=== PATIENT | female | born 1975 | race Caucasian/White ===

== ENCOUNTER 2016-11-02 16:03 | Emergency (ER) | payer OTHER ==
[2016-11-02 16:59] VITALS: TEMP 97.3
[2016-11-02] MEDS ORDERED: SODIUM CHLORIDE 0.9% 1,000 ML IV ONE (17:27)
--- NOTE | 2016-11-02 17:40 | ED ---
General Adult HPI - General Chief complaint: Abdominal Pain Stated complaint: Vomiting Blood Time Seen by Provider: 11/02/16 17:21 Source: patient, RN notes reviewed Mode of arrival: ambulatory Limitations: no limitations - History of Present Illness Initial comments: Patient is a 41-year-old female presents to the emergency room for evaluation of vomiting bright red blood. Patient states earlier this afternoon after eating lunch she felt nauseous and had 1 episode of vomiting. Patient states when she looked down and she noticed that there was about 2 ounces of bright red blood. Patient states this never happened to her before. Patient denies feeling nauseated or having any abdominal pain throughout the day today. Patient states after the episode of vomiting she has been feeling weak. Patient denies abdominal pain or current nausea. Patient states that she saw primary care yesterday for throat pain. Patient states she had a rapid strep test which was negative. Patient states she was placed on penicillin anyways. Patient states she took her first dose of penicillin about 20 minutes before she vomited. Patient states she's having a slight headache. Patient denies dizziness, chest pain, shortness of breath, diarrhea, constipation. Patient denies any changes in color of stool or bright red blood in stools. Patient denies trying any new foods. Patient denies any recent travel outside the country. - Related Data Home Medications Medication Instructions Recorded Confirmed Budesonide-Formot 160-4.5 Mcg 2 puff INHALATION RT-BID 11/02/16 11/02/16 [Symbicort 160-4.5 Mcg Inhaler] DULoxetine HCL [Cymbalta] 60 mg PO HS 11/02/16 11/02/16 HYDROcodone/APAP 5-325MG [[place] 1 tab PO BID PRN 11/02/16 11/02/16 5-325] Montelukast [Singulair] 10 mg PO HS 11/02/16 11/02/16 Penicillin V Potassium [Pen Vee K] 500 mg PO BID 11/02/16 11/02/16 Topiramate [Topamax] 100 mg PO QAM 11/02/16 11/02/16 Topiramate [Topamax] 200 mg PO HS 11/02/16 11/02/16 tiZANidine HCL [Zanaflex] 8 mg PO HS 11/02/16 11/02/16 Previous Rx's Medication Instructions Recorded Pantoprazole Sodium [Protonix] 40 mg PO DAILY PRN #14 tablet. 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 ROS Other: All systems not noted in ROS Statement are negative. Past Medical History Additional Past Medical History / Comment(s): headaches History of Any Multi-Drug Resistant Organisms: None Reported Past Surgical History: Hysterectomy Additional Past Surgical History / Comment(s): pilinidal cyst, bilateral feet Past Psychological History: No Psychological Hx Reported Smoking Status: Never smoker Past Alcohol Use History: None Reported Past Drug Use History: None Reported General Exam - General Exam Comments Initial Comments: Sitting in exam room in no distress. Limitations: no limitations General appearance: alert, in no apparent distress Head exam: Present: atraumatic, normocephalic, normal inspection Eye exam: Present: normal appearance ENT exam: Present: normal exam Neck exam: Present: normal inspection Respiratory exam: Present: normal lung sounds bilaterally. Absent: respiratory distress Cardiovascular Exam: Present: regular rate, normal rhythm, normal heart sounds GI/Abdominal exam: Present: soft, normal bowel sounds. Absent: distended, tenderness, guarding, rebound, rigid Extremities exam: Present: normal inspection Back exam: Present: normal inspection Neurological exam: Present: alert, oriented X3, CN II-XII intact, normal gait Psychiatric exam: Present: normal affect, normal mood Skin exam: Present: warm, dry, intact, normal color. Absent: rash Course Vital Signs 11/02/16 11/02/16 11/02/16 16:56 18:17 19:08 Temperature 97.3 F L Pulse Rate 77 76 76 Respiratory 20 18 16 Rate Blood Pressure 141/94 140/61 125/58 O2 Sat by Pulse 100 100 100 Oximetry Medical Decision Making - Medical Decision Making Patient is a 41-year-old female presents emergency room for evaluation of one episode of hematemesis. Patient denies any current nausea or abdominal pain. Labs within normal limits. Hemoglobin/hematocrit stable. Will send patient home on Protonix and have her follow-up with her primary care provider on Friday. Advised patient to return for any worsening symptoms or changing symptoms. Patient states she understands everything that was discussed with her. Case discussed with Dr. Gregory. - Lab Data Result diagrams: 11/02/16 17:46 11/02/16 17:46 Lab Results 11/02/16 11/02/16 11/02/16 Range/Units 17:46 17:46 17:46 WBC 7.5 (3.8-10.6) k/uL RBC 4.74 (3.80-5.40) m/uL Hgb 14.4 (11.4-16.0) gm/dL Hct 43.8 (34.0-46.0) % MCV 92.4 (80.0-100.0) fL MCH 30.3 (25.0-35.0) pg MCHC 32.8 (31.0-37.0) g/dL RDW 13.0 (11.5-15.5) % Plt Count 184 (150-450) k/uL Neutrophils % 75 % Lymphocytes % 15 % Monocytes % 5 % Eosinophils % 3 % Basophils % 0 % Neutrophils # 5.6 (1.3-7.7) k/uL Lymphocytes # 1.1 (1.0-4.8) k/uL Monocytes # 0.4 (0-1.0) k/uL Eosinophils # 0.3 (0-0.7) k/uL Basophils # 0.0 (0-0.2) k/uL Sodium 143 (137-145) mmol/L Potassium 3.7 (3.5-5.1) mmol/L Chloride 109 H (98-107) mmol/L Carbon Dioxide 22 (22-30) mmol/L Anion Gap 12 mmol/L BUN 13 (7-17) mg/dL Creatinine 0.99 (0.52-1.04) mg/dL Est GFR (MDRD) Af Amer >60 (>60 ml/min/1.73 sqM) Est GFR (MDRD) Non-Af >60 (>60 ml/min/1.73 sqM) Glucose 94 (74-99) mg/dL Calcium 8.8 (8.4-10.2) mg/dL Magnesium 1.7 (1.6-2.3) mg/dL Total Bilirubin 0.4 (0.2-1.3) mg/dL AST 18 (14-36) U/L ALT 28 (9-52) U/L Alkaline Phosphatase 104 (38-126) U/L Total Protein 7.3 (6.3-8.2) g/dL Albumin 4.1 (3.5-5.0) g/dL Amylase 47 (30-110) U/L Lipase 50 (23-300) U/L Urine Color Yellow Urine Appearance Cloudy H (Clear) Urine pH 6.5 (5.0-8.0) Ur Specific [place] 1.024 (1.001-1.035) Urine Protein 1+ H (Negative) Urine Glucose (UA) Negative (Negative) Urine Ketones Trace H (Negative) Urine Blood Negative (Negative) Urine Nitrate Negative (Negative) Urine Bilirubin Negative (Negative) Urine Urobilinogen 3.0 (<2.0) mg/dL Ur Leukocyte Esterase Small H (Negative) Urine RBC 6 H (0-5) /hpf Urine WBC 6 H (0-5) /hpf Ur Squamous Epith Cells 5 H (0-4) /hpf Urine Mucus Many H (None) /hpf - Radiology Data Radiology results: report reviewed, image reviewed Disposition Clinical Impression: Hematemesis without nausea Disposition: HOME SELF-CARE Condition: Good Instructions: Hematemesis (ED) Additional Instructions: Take medications as directed. Please follow up with primary care provider on Friday. If any new symptom arises, symptoms worsen or fever develops, return to ER as soon as possible. Prescriptions: Pantoprazole Sodium [Protonix] 40 mg PO DAILY PRN #14 tablet.dr VINES Reason: Pain Referrals: Carmelita Olvera MD [Primary Care Provider] - 1-2 days Time of Disposition: 18:54
[2016-11-02 18:00] LABS: Basophils % (A) 0 %; CHCM 33.7; Eosinophils # (A) 0.3 k/uL (0-0.7); Eosinophils % (A) 3 %; HCT 43.8 % (34.0-46.0); HDW 2.69; HGB 14.4 gm/dL (11.4-16.0); Luc # (Auto) 0.07; Luc % (Auto) 1; Lymphocytes # (A) 1.1 k/uL (1.0-4.8); Lymphocytes % (A) 15 %; MCH 30.3 pg (25.0-35.0); MCHC 32.8 g/dL (31.0-37.0); MCV 92.4 fL (80.0-100.0); Mean Platelet Volume 7.9; Monocytes # (A) 0.4 k/uL (0-1.0); Monocytes % (A) 5 %; Neutrophils # (A) 5.6 k/uL (1.3-7.7); Neutrophils % (A) 75 %; RBC 4.74 m/uL (3.80-5.40); WBC 7.5 k/uL (3.8-10.6)
[2016-11-02 18:05] LABS: Appearance,Urine Cloudy (Clear); Bilirubin,Urine Negative (Negative); Glucose,Urine (UA) Negative (Negative); Ketones,Urine Trace (Negative); Leukocyte Esterase,Urine Small (Negative); Mucus,Urine Many /hpf; Nitrite,Urine Negative (Negative); PH, Urine 6.5 (5.0-8.0); Particle Count 14085; Protein,Urine 1+ (Negative); RBC,Urine 6 /hpf (0-5); Specific Gravity,Urine 1.024 (1.001-1.035); Squamous Epithelial Cell,Urine 5 /hpf (0-4); UA Billing (MACRO vs. MICRO) MICRO; WBC,Urine 6 /hpf (0-5)
[2016-11-02 18:07] LABS: ALT 28 U/L (9-52); AST 18 U/L (14-36); Alkaline Phosphatase 104 U/L (38-126); Amylase 47 U/L (30-110); Anion Gap 12 mmol/L; Blood Urea Nitrogen 13 mg/dL (7-17); Calcium 8.8 mg/dL (8.4-10.2); Carbon Dioxide 22 mmol/L (22-30); Chloride 109 mmol/L (98-107); Glucose 94 mg/dL (74-99); Magnesium 1.7 mg/dL (1.6-2.3); Non-African American GFR(MDRD) >60 (>60 ml/min/1.73 sqM); Potassium 3.7 mmol/L (3.5-5.1); Sodium 143 mmol/L (137-145); Total Bilirubin 0.4 mg/dL (0.2-1.3); Total Protein 7.3 g/dL (6.3-8.2)
[2016-11-02 18:18] VITALS: PULSE 76
--- NOTE | 2016-11-02 18:37 | XR ---
EXAMINATION TYPE: XR KUB DATE OF EXAM: 11/02/2016 6:01 PM COMPARISON: NONE INDICATION: Pain vomiting blood TECHNIQUE: Single view abdomen upright view FINDINGS: There is a normal bowel gas pattern. Psoas margins are normal. No organomegaly is present. No free air is under the diaphragm. Normal colonic bowel gas is present. No suspicious calcifications are evident. IMPRESSION: 1. Unremarkable Abdomen
[2016-11-02 19:09] VITALS: BP 125/58; RESP 16
== END 2016-11-02 19:09 | disposition home or self-care (01) ==
LOC: EC 16:03
DX: K92.0 Hematemesis (principal); R51 Headache; Z79.51 Long term (current) use of inhaled steroids; Z79.899 Other long term (current) drug therapy; Z88.5 Allergy status to narcotic agent; Z91.048 Other nonmedicinal substance allergy status
CPT/HCPCS: 36415; 74000; 80053; 81001; 82150; 83690; 83735; 85025; 96360; 99284

== ENCOUNTER → 2017-12-05 | Outpatient (CLI) | payer OTHER ==
[2017-12-05 17:28] LABS: Basophils % (A) 1 %; Eosinophils # (A) 0.2 k/uL (0-0.7); Eosinophils % (A) 3 %; HCT 44.6 % (34.0-46.0); HGB 13.8 gm/dL (11.4-16.0); Lymphocytes # (A) 1.7 k/uL (1.0-4.8); Lymphocytes % (A) 26 %; MCV 96.9 fL (80.0-100.0); Mean Platelet Volume 7.3; Monocytes # (A) 0.5 k/uL (0-1.0); Monocytes % (A) 7 %; Neutrophils # (A) 3.9 k/uL (1.3-7.7); Neutrophils % (A) 62 %; Platelet Count 203 k/uL (150-450); RBC 4.61 m/uL (3.80-5.40); RDW 13.4 % (11.5-15.5); WBC 6.3 k/uL (3.8-10.6)
[2017-12-05 19:52] LABS: Erythrocyte Sedimentation Rate 13 mm/hr (0-20)
== END | disposition home or self-care (01) ==
LOC: LABWHC1 16:14
PROVIDERS: ATTEND Ophthalmology
DX: H57.11 Ocular pain, right eye (principal)
CPT/HCPCS: 36415; 85025; 85652; 86140

== ENCOUNTER → 2017-12-09 | Outpatient (CLI) | payer OTHER ==
--- NOTE | 2017-12-09 13:14 | MR ---
EXAMINATION TYPE: MR knee RT wo con DATE OF EXAM: 12/09/2017 COMPARISON: NONE HISTORY: Right knee pain TECHNIQUE: Multiplanar, multisequence imaging of the right knee is performed without IV contrast. FINDINGS: MEDIAL MENISCUS: Intrasubstance signal seen within the posterior horn medial meniscus which appears t o extend to the articular surface on the coronal image compatible with a peripheral linear tear. LATERAL MENISCUS: Anterior and posterior horns are intact without tear. CRUCIATE LIGAMENTS: The anterior and posterior cruciate ligaments are intact and unremarkable. COLLATERAL LIGAMENTS: The medial collateral ligament and lateral collateral ligament complex are inta ct and unremarkable. EXTENSOR MECHANISM: Visualized quadriceps and patellar tendons are intact. EFFUSION: Small amount of fluid is seen within the suprapatellar bursa. POPLITEAL CYST: No popliteal/alegria cyst. TRICOMPARTMENT SPACES: Joint spaces are preserved. No erosive changes. There is hypertrophic change i nvolving the upper margin of patella. Fibrillation and chondromalacia of the patellar cartilage near the apex noted. BONE MARROW SIGNAL: Post arthritic or degenerative marrow changes involving the patella. IMPRESSION: 1. Small amount of fluid in the suprapatellar bursa with mild hypertrophic changes of the patella. Fi brillation and chondromalacia of the patellar cartilage. 2. Simple linear peripheral tear posterior horn medial meniscus.
== END | disposition home or self-care (01) ==
LOC: RADMRIMAIN 12:14
PROVIDERS: ATTEND Orthopaedic Surgery
DX: S83.241A Other tear of medial meniscus, current injury, right knee, initial encounter (principal); M22.41 Chondromalacia patellae, right knee

== ENCOUNTER → 2018-01-06 | Outpatient (CLI) | payer OTHER ==
[2018-01-06 13:07] LABS: Basophils # (A) 0.1 k/uL (0-0.2); Basophils % (A) 1 %; Eosinophils # (A) 0.3 k/uL (0-0.7); Eosinophils % (A) 4 %; HCT 42.2 % (34.0-46.0); HGB 14.2 gm/dL (11.4-16.0); Lymphocytes # (A) 1.4 k/uL (1.0-4.8); Lymphocytes % (A) 18 %; MCH 31.1 pg (25.0-35.0); MCHC 33.7 g/dL (31.0-37.0); MCV 92.3 fL (80.0-100.0); Mean Platelet Volume 7.6; Monocytes # (A) 0.4 k/uL (0-1.0); Monocytes % (A) 5 %; Neutrophils # (A) 5.5 k/uL (1.3-7.7); Neutrophils % (A) 70 %; Platelet Count 197 k/uL (150-450); RBC 4.57 m/uL (3.80-5.40); RDW 13.7 % (11.5-15.5); WBC 7.9 k/uL (3.8-10.6)
[2018-01-06 13:29] LABS: Potassium 4.4 mmol/L (3.5-5.1)
== END | disposition home or self-care (01) ==
LOC: LABPAT 12:37
PROVIDERS: ATTEND Orthopaedic Surgery
DX: Z01.812 Encounter for preprocedural laboratory examination (principal); M23.91 Unspecified internal derangement of right knee
CPT/HCPCS: 36415; 80051; 85025

== ENCOUNTER → 2018-01-12 | Outpatient (CLI) | payer OTHER ==
--- NOTE | 2018-01-12 22:07 | MR ---
EXAMINATION TYPE: MR brain wo/w [facility], [place] wo DATE OF EXAM: 01/12/2018 COMPARISON: 09/25/2016 HISTORY: Headaches, Neck pain with stiffness, Short term memory loss CONTRAST: Performed utilizing 11.5 mL intravenous Gadavist gadolinium contrast. TECHNIQUE: Multiplanar, multiecho imaging on a 3.0 Desirae magnet is performed through the brain. Stud y is performed within 24 hours of arrival to the hospital. The craniovertebral junction is normal. The pituitary is normal. Diffusion-weighted imaging is performed. No abnormal hyperintensity is present to suggest an acute i ntracranial infarct or acute ischemic change. Signal within the brain is normal. Previous hyperintensity adjacent to the left frontal horn of the l ateral ventricles is not appreciated on the current examination. Optic chiasm is unremarkable. Ventricles and sulci are appropriate for the patient age. No abnormal enhancement is evident. IMPRESSIONS: 1. Normal pre and postcontrast MRI brain. EXAMINATION TYPE: [facility] brain [facility] DATE OF EXAM: 01/12/2018 COMPARISON: NONE HISTORY: Headaches, Neck pain with stiffness, Short term memory loss CONTRAST: Performed utilizing 11.5 mL intravenous Gadavist gadolinium contrast. TECHNIQUE: Multiplanar multiecho imaging on a 3.0 Desirae magnet is performed through the cervical spin e. FINDINGS: The craniovertebral junction is normal. Vertebral body alignment is normal. C7-T1: No focal disc herniation or significant disc bulge is evident. No spinal canal stenosis or n eural foraminal stenosis is present. C6-7: No focal disc herniation or significant disc bulge is evident. No spinal canal stenosis or tarun ral foraminal stenosis is present. C5-6: Minimal left paracentral disc bulge may be present with anterior thecal sac contact. This comes in close approximation with the spinal cord. No spinal cord compression is evident. No AP spinal can al stenosis present. Neural foramen are patent. C4-5: No focal disc herniation or significant disc bulge is evident. No spinal canal stenosis or tarun ral foraminal stenosis is present. C3-4: No focal disc herniation or significant disc bulge is evident. No spinal canal stenosis or tarun ral foraminal stenosis is present. C2-3: No focal disc herniation or significant disc bulge is evident. No spinal canal stenosis or tarun ral foraminal stenosis is present. There is some mild disc desiccation C2-3 through C5-6. IMPRESSIONS: 1. Minimal disc bulge C5-6 with left paracentral thecal sac contact. 2. Disc desiccation upper to mid cervical spine
== END | disposition home or self-care (01) ==
LOC: RADMRIMAIN 20:57
PROVIDERS: ATTEND Family Medicine
DX: M50.222 Other cervical disc displacement at C5-C6 level (principal); M47.812 Spondylosis without myelopathy or radiculopathy, cervical region; G43.109 Migraine with aura, not intractable, without status migrainosus
CPT/HCPCS: 70553; 72141; A9581

== ENCOUNTER 2018-06-20 14:20 | Observation (INO) | payer OTHER ==
[2018-06-20] MEDS ORDERED: ASPIRIN 81 MG PO STA (14:37)
[2018-06-20] MEDS ORDERED: NITROGLYCERIN OINT 1 INCH/GM PACKET TOPICAL STA (14:37)
--- NOTE | 2018-06-20 14:45 | ED ---
General Adult HPI - General Chief complaint: Chest Pain Stated complaint: Chest pain Time Seen by Provider: 06/20/18 14:20 Source: patient, RN notes reviewed Mode of arrival: wheelchair Limitations: no limitations - History of Present Illness Initial comments: This is a 42-year-old female with no significant past medical history or family history for heart disease. Patient comes in stating over the last week she's been having intermittent chest pain. Patient states there are episodes when the pain is much worse and it takes her breath away and it lasts typically for about 10 seconds but there is an underlying discomfort that stays much longer. Patient states currently she is having some discomfort even though the more painful episode has resolved. Patient denies any fever chills or cough. Patient denies any leg swelling or calf tenderness. Patient states the pain does radiate to her right shoulder and she is only short of breath when the pain is more significant. Patient denies any diaphoresis. Patient denies any nausea or vomiting patient denies any abdominal pain patient denies any lightheadedness dizziness or nursing episode. - Related Data Home Medications Medication Instructions Recorded Confirmed DULoxetine HCL [Cymbalta] 60 mg PO DAILY 11/02/16 06/20/18 Topiramate [Topamax] 100 mg PO TID 11/02/16 06/20/18 tiZANidine HCL [Zanaflex] 4 mg PO BID 11/02/16 06/20/18 Albuterol Inhaler [Ventolin [place] 1 - 2 puff INHALATION RT-QID PRN 01/15/18 Inhaler] DULoxetine HCL [Cymbalta] 30 mg PO DAILY 01/15/18 06/20/18 Pantoprazole Sodium [Protonix] 40 mg PO DAILY 01/15/18 06/20/18 ARIPiprazole [Abilify] 2 mg PO DAILY 06/20/18 06/20/18 HYDROcodone/APAP 5-325MG [[place] 1 tab PO Q6H PRN 06/20/18 06/20/18 5-325] busPIRone HCl [Buspar] 10 mg PO BID 06/20/18 06/20/18 Allergies Allergy/AdvReac Type Severity Reaction Status Date / Time codeine Allergy passes out Verified 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 ROS Other: All systems not noted in ROS Statement are negative. Past Medical History Additional Past Medical History / Comment(s): headaches History of Any Multi-Drug Resistant Organisms: None Reported Past Surgical History: Hysterectomy Additional Past Surgical History / Comment(s): pilinidal cyst, bilateral feet Past Psychological History: Anxiety, Depression Smoking Status: Never smoker Past Alcohol Use History: None Reported Past Drug Use History: None Reported General Exam - General Exam Comments Initial Comments: GENERAL: Patient is well-developed and well-nourished. Patient is nontoxic and well- hydrated and is in mild distress. ENT: Neck is soft and supple. No significant lymphadenopathy is noted. Oropharynx is clear. Moist mucous membranes. Neck has full range of motion without eliciting any pain. EYES: The sclera were anicteric and conjunctiva were pink and moist. Extraocular movements were intact and pupils were equal round and reactive to light. Eyelids were unremarkable. PULMONARY: Unlabored respirations. Good breath sounds bilaterally. No audible rales rhonchi or wheezing was noted. CARDIOVASCULAR: There is a regular rate and rhythm without any murmurs gallops or rubs. ABDOMEN: Soft and nontender with normal bowel sounds. SKIN: Skin is clear with no lesions or rashes and otherwise unremarkable. NEUROLOGIC: Patient is alert and oriented x3. Cranial nerves II through XII are grossly intact. Motor and sensory are also intact. Normal speech, volume and content. Symmetrical smile. MUSCULOSKELETAL: Normal extremities with adequate strength and full range of motion. LYMPHATICS: No significant lymphadenopathy is noted PSYCHIATRIC: Normal psychiatric evaluation. Normal interpersonal interactions appears functionally intact in deals appropriately with others. No signs of depression. No signs of anxiety. Limitations: no limitations Course Vital Signs 06/20/18 06/20/18 14:22 15:45 Temperature 98.3 F Pulse Rate 89 66 Respiratory 18 18 Rate Blood Pressure 124/88 113/79 O2 Sat by Pulse 98 98 Oximetry Medical Decision Making - Medical Decision Making EKG shows normal sinus rhythm at 70 bpm OH interval is 138 QRS is 92 QT interval 370 QTC is 421. Patient's EKG shows no ST segment elevation or depression. Chest x-ray shows no acute abnormality. Patient will be because her pain is been intermittent with episodes that are exacerbated and associated with significant shortness of breath. - Lab Data Result diagrams: 06/20/18 14:37 06/20/18 14:37 Lab Results 06/20/18 06/20/18 06/20/18 Range/Units 14:37 14:37 14:37 WBC 7.5 (3.8-10.6) k/uL RBC 4.51 (3.80-5.40) m/uL Hgb 13.4 (11.4-16.0) gm/dL Hct 42.4 (34.0-46.0) % MCV 94.0 (80.0-100.0) fL MCH 29.7 (25.0-35.0) pg MCHC 31.6 (31.0-37.0) g/dL RDW 13.4 (11.5-15.5) % Plt Count 206 (150-450) k/uL Neutrophils % 69 % Lymphocytes % 18 % Monocytes % 5 % Eosinophils % 6 % Basophils % 0 % Neutrophils # 5.2 (1.3-7.7) k/uL Lymphocytes # 1.4 (1.0-4.8) k/uL Monocytes # 0.4 (0-1.0) k/uL Eosinophils # 0.4 (0-0.7) k/uL Basophils # 0.0 (0-0.2) k/uL PT (9.0-12.0) sec INR (<1.2) APTT (22.0-30.0) sec Sodium 141 (137-145) mmol/L Potassium 3.9 (3.5-5.1) mmol/L Chloride 114 H (98-107) mmol/L Carbon Dioxide 20 L (22-30) mmol/L Anion Gap 7 mmol/L BUN 15 (7-17) mg/dL Creatinine 0.90 (0.52-1.04) mg/dL Est GFR (CKD-EPI)AfAm >90 (>60 ml/min/1.73 sqM) Est GFR (CKD-EPI)NonAf 78 (>60 ml/min/1.73 sqM) Glucose 99 (74-99) mg/dL Calcium 9.3 (8.4-10.2) mg/dL Magnesium 1.8 (1.6-2.3) mg/dL Total Bilirubin 0.4 (0.2-1.3) mg/dL AST 22 (14-36) U/L ALT 31 (9-52) U/L Alkaline Phosphatase 88 (38-126) U/L Total Creatine Kinase 57 (30-135) U/L CK-MB (CK-2) 0.5 (0.0-2.4) ng/mL CK-MB (CK-2) Rel Index 0.9 Troponin I <0.012 (0.000-0.034) ng/mL Total Protein 6.6 (6.3-8.2) g/dL Albumin 3.7 (3.5-5.0) g/dL 06/20/18 Range/Units 14:37 WBC (3.8-10.6) k/uL RBC (3.80-5.40) m/uL Hgb (11.4-16.0) gm/dL Hct (34.0-46.0) % MCV (80.0-100.0) fL MCH (25.0-35.0) pg MCHC (31.0-37.0) g/dL RDW (11.5-15.5) % Plt Count (150-450) k/uL Neutrophils % % Lymphocytes % % Monocytes % % Eosinophils % % Basophils % % Neutrophils # (1.3-7.7) k/uL Lymphocytes # (1.0-4.8) k/uL Monocytes # (0-1.0) k/uL Eosinophils # (0-0.7) k/uL Basophils # (0-0.2) k/uL PT 9.6 (9.0-12.0) sec INR 1.0 (<1.2) APTT 28.7 (22.0-30.0) sec Sodium (137-145) mmol/L Potassium (3.5-5.1) mmol/L Chloride (98-107) mmol/L Carbon Dioxide (22-30) mmol/L Anion Gap mmol/L BUN (7-17) mg/dL Creatinine (0.52-1.04) mg/dL Est GFR (CKD-EPI)AfAm (>60 ml/min/1.73 sqM) Est GFR (CKD-EPI)NonAf (>60 ml/min/1.73 sqM) Glucose (74-99) mg/dL Calcium (8.4-10.2) mg/dL Magnesium (1.6-2.3) mg/dL Total Bilirubin (0.2-1.3) mg/dL AST (14-36) U/L ALT (9-52) U/L Alkaline Phosphatase (38-126) U/L Total Creatine Kinase (30-135) U/L CK-MB (CK-2) (0.0-2.4) ng/mL CK-MB (CK-2) Rel Index Troponin I (0.000-0.034) ng/mL Total Protein (6.3-8.2) g/dL Albumin (3.5-5.0) g/dL Disposition Clinical Impression: Chest pain Disposition: ADMITTED IP TO THIS HOSP Referrals: Carmelita Olvera MD [Primary Care Provider] - 1-2 days Time of Disposition: 15:59
--- NOTE | 2018-06-20 15:15 | XR ---
EXAMINATION TYPE: XR chest 2V DATE OF EXAM: 06/20/2018 COMPARISON: None INDICATION: Asthma, chest pain TECHNIQUE: Frontal and lateral views of the chest are obtained. FINDINGS: The heart size is normal. The pulmonary vasculature is normal. The lungs are clear. IMPRESSION: 1. No acute pulmonary process.
[2018-06-20 15:25] LABS: ALT 31 U/L (9-52); AST 22 U/L (14-36); Albumin 3.7 g/dL (3.5-5.0); Alkaline Phosphatase 88 U/L (38-126); Anion Gap 7 mmol/L; Blood Urea Nitrogen 15 mg/dL (7-17); Calcium 9.3 mg/dL (8.4-10.2); Carbon Dioxide 20 mmol/L (22-30); Chloride 114 mmol/L (98-107); Glucose 99 mg/dL (74-99); Magnesium 1.8 mg/dL (1.6-2.3); Potassium 3.9 mmol/L (3.5-5.1); Sodium 141 mmol/L (137-145); Total Bilirubin 0.4 mg/dL (0.2-1.3); Total Protein 6.6 g/dL (6.3-8.2)
[2018-06-20 15:27] LABS: Creatine Kinase 57 U/L (30-135)
[2018-06-20 15:29] LABS: Partial Thromboplastin Time 28.7 sec (22.0-30.0); Prothrombin Time 9.6 sec (9.0-12.0)
[2018-06-20 15:40] LABS: Basophils % (A) 0 %; Creatine Kinase MB 0.5 ng/mL (0.0-2.4); Eosinophils # (A) 0.4 k/uL (0-0.7); Eosinophils % (A) 6 %; HCT 42.4 % (34.0-46.0); HGB 13.4 gm/dL (11.4-16.0); Lymphocytes # (A) 1.4 k/uL (1.0-4.8); Lymphocytes % (A) 18 %; MCH 29.7 pg (25.0-35.0); MCHC 31.6 g/dL (31.0-37.0); Mean Platelet Volume 7.9; Monocytes # (A) 0.4 k/uL (0-1.0); Monocytes % (A) 5 %; Neutrophils # (A) 5.2 k/uL (1.3-7.7); Neutrophils % (A) 69 %; Platelet Count 206 k/uL (150-450); RBC 4.51 m/uL (3.80-5.40); RDW 13.4 % (11.5-15.5); Troponin I <0.012 ng/mL (0.000-0.034); WBC 7.5 k/uL (3.8-10.6)
[2018-06-20] MEDS ORDERED: NITROGLYCERIN SL TABS 0.4 MG TAB SUBLINGUAL PRN (15:59)
[2018-06-20] MEDS ORDERED: HYDROcodone/APAP 5-325MG 1 EACH TAB PO PRN (16:13)
[2018-06-20] MEDS ORDERED: ALBUTEROL NEBULIZED 2.5 MG/3 ML INHALATION PRN (16:13)
[2018-06-20] MEDS ORDERED: ACETAMINOPHEN TAB 500 MG TAB PO PRN (16:14)
[2018-06-20] MEDS ORDERED: ALPRAZolam 0.25 MG TAB PO PRN (16:14)
[2018-06-20 19:31] LABS: Appearance,Urine Clear (Clear); Bilirubin,Urine Negative (Negative); Blood,Urine Negative (Negative); Color,Urine Yellow; Glucose,Urine (UA) Negative (Negative); Ketones,Urine Negative (Negative); Leukocyte Esterase,Urine Negative (Negative); Nitrite,Urine Negative (Negative); Protein,Urine Negative (Negative); Specific Gravity,Urine 1.019 (1.001-1.035); Urobilinogen,Urine <2.0 mg/dL (<2.0)
--- NOTE | 2018-06-20 20:49 | CT ---
CT CHEST FOR PULMONARY EMBOLISM. EXAMINATION TYPE: CT angio chest DATE OF EXAM: 06/20/2018 INDICATION: SOB, elevated d-dimer CT DLP: 539.8 mGycm, Automated exposure control for dose reduction was used. CONTRAST: Patient injected with 100 mL of Isovue 370. COMPARISON: None TECHNIQUE: CT of the chest is performed on a spiral scan at 2 mm thick sections. Study is performed with intravenous contrast timed for evaluation for pulmonary embolism. This will limit additional po rtions of the evaluation. 3-D MIP images reconstructed by the technologist are reviewed on the compu ter in the coronal and sagittal planes. FINDINGS: No persistent filling defects are evident to suggest an acute pulmonary embolism. No mediastinal or hilar adenopathy enlarged by CT criteria is evident. The ascending aorta diameter at the level of the main pulmonary artery is 3.3 cm. The main pulmonary artery diameter at the bifur cation is 2.4 cm. Lung windows are clear. Limited CT section through the upper abdomen are unremarkable. IMPRESSIONS: 1. No acute pulmonary embolism.
[2018-06-20] MEDS ORDERED: TEMAZEPAM 15 MG CAP PO PRN (21:00)
[2018-06-20] MEDS ORDERED: tiZANidine 4 MG TAB PO SCH (21:00)
[2018-06-20 21:16] LABS: Creatine Kinase 42 U/L (30-135)
[2018-06-20 21:29] LABS: Creatine Kinase MB 0.4 ng/mL (0.0-2.4); Troponin I <0.012 ng/mL (0.000-0.034)
[2018-06-20] MEDS: NITROGLYCERIN OINT 1 INCH/GM PACKET TOPICAL SCH (21:43)
[2018-06-20] MEDS: busPIRone HCl 10 MG TAB PO SCH (21:48)
[2018-06-20] MEDS ORDERED: DULoxetine HCL 30 MG CAPSULE.DR PO SCH (22:00)
[2018-06-20] MEDS ORDERED: DULoxetine HCL 60 MG CAPSULE.DR PO SCH (22:00)
[2018-06-20] MEDS ORDERED: TOPIRAMATE 100 MG TAB PO SCH ×2 (22:00)
--- NOTE | 2018-06-20 22:35 | HP ---
HISTORY AND PHYSICAL DATE OF SERVICE: 06/20/2018. CHIEF COMPLAINT: Chest pain. HISTORY OF PRESENT ILLNESS: This 42-year-old gentleman with a past medical history of headaches, hysterectomy, anxiety, depression being followed by Dr. Olvera in the outpatient setting has been admitted with complaints of chest pain which is felt in the upper part of the chest and mostly to the right side, intermittent in character, sharp in character for the last several days which increase in intensity today. There is no history of radiation. No history of associated symptoms. Initial troponins are negative. Initial EKG showed no acute abnormality. Patient admitted for evaluation and treatment. There is no history of fever, rigors. No headache, loss of consciousness, seizures. PAST MEDICAL HISTORY: History of headaches, history of hysterectomy, history of DJD, history of pilonidal cyst. MEDICATIONS: 1. Zanaflex 4 mg p.o. b.i.d. 2. BuSpar 10 mg p.o. b.i.d. 3. Topamax 100 mg p.o. t.i.d. 4. Protonix 40 mg p.o. daily. 5. [place] 5 mg q.6h p.r.n. 6. Cymbalta 30 mg p.o. daily, 60 mg p.o. daily. 7. Ventolin HFA 1-2 puffs q.i.d. p.r.n. 8. Abilify 2 mg p.o. daily. 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 FAMILY HISTORY: No history of heart disease or strokes in the family. SOCIAL HISTORY: No history of smoking. No history of alcohol intake. REVIEW OF SYSTEMS: ENT: No diminished hearing or vision. CARDIOVASCULAR: As mentioned. RESPIRATORY: As mentioned earlier. GI: No nausea. : No dysuria. NERVOUS SYSTEM: No numbness or weakness. ALLERGY/IMMUNOLOGY: No asthma or hayfever. MUSCULOSKELETAL: As mentioned earlier. HEMATOLOGY: No history of anemia. ENDOCRINE: No history of diabetes or hypothyroidism. CONSTITUTIONAL: As mentioned earlier. DERMATOLOGY: Negative. RHEUMATOLOGY: Negative. CONSTITUTIONAL: As mentioned earlier. PHYSICAL EXAMINATION: Pulse 59, blood pressure 120/78, respirations 18, temperature 98.4, pulse ox 100 percent on room air. HEENT: Conjunctivae normal. Oral mucosa moist. Neck is no jugular venous distention. No carotid bruit. No lymph node enlargement. CARDIOVASCULAR: S1, S2. RESPIRATORY: Breath sounds diminished in the bases. No rhonchi. No crackles. ABDOMEN: Soft, nontender. No mass palpable. LEGS: No edema, no swelling. NERVOUS SYSTEM: Higher functions as mentioned. Moves all four limbs. No focal motor deficits. LYMPHATICS: No lymphadenopathy in the neck, axillae, groin. SKIN: No ulcer, rash, bleeding. LABS: CBC within normal limits. CO2 is 20. Other labs are normal. ASSESSMENT: 1. Chest pain possible evaluation, rule out myocardial infarction possibly musculoskeletal pain. 2. Headaches. 3. Hysterectomy. 4. History of degenerative joint disease. 5. History of pilonidal cyst. 6. Anxiety, depression. RECOMMENDATIONS AND DISCUSSION: In this 42-year-old woman who presented with multiple complex medical issues, will monitor the patient closely. Continue the current medications. Rule out myocardial infarction. Continue antiplatelet agents and closely follow with Cardiology. Possible stress test. Continue the rest of medications. Check a lipid panel also. Will also check D-dimer also. Prognosis guarded because of multiple complex medical issues and further recommendations to follow. See orders for details. A copy of dictation forwarded to Dr. Olvera who is the primary physician. MMODL / IJN: [id number] /
[2018-06-21 02:51] LABS: Basophils % (A) 1 %; Eosinophils # (A) 0.4 k/uL (0-0.7); Eosinophils % (A) 7 %; HCT 36.9 % (34.0-46.0); Lymphocytes # (A) 1.7 k/uL (1.0-4.8); Lymphocytes % (A) 29 %; MCH 30.4 pg (25.0-35.0); MCHC 32.5 g/dL (31.0-37.0); MCV 93.8 fL (80.0-100.0); Mean Platelet Volume 7.3; Monocytes # (A) 0.3 k/uL (0-1.0); Monocytes % (A) 5 %; Neutrophils # (A) 3.4 k/uL (1.3-7.7); Neutrophils % (A) 56 %; Platelet Count 177 k/uL (150-450); RBC 3.94 m/uL (3.80-5.40); RDW 13.5 % (11.5-15.5)
[2018-06-21 02:58] LABS: Creatine Kinase 38 U/L (30-135)
[2018-06-21 03:00] LABS: Calcium 8.7 mg/dL (8.4-10.2)
[2018-06-21 03:11] LABS: Creatine Kinase MB 0.3 ng/mL (0.0-2.4); Troponin I <0.012 ng/mL (0.000-0.034)
[2018-06-21] MEDS ORDERED: DULoxetine HCL 30 MG CAPSULE.DR PO SCH (09:00)
[2018-06-21] MEDS ORDERED: ARIPiprazole 2 MG TAB PO SCH (09:00)
[2018-06-21] MEDS ORDERED: TOPIRAMATE 100 MG TAB PO SCH (09:00)
[2018-06-21] MEDS ORDERED: DULoxetine HCL 60 MG CAPSULE.DR PO SCH (09:00)
[2018-06-21] MEDS ORDERED: ASPIRIN 81 MG PO SCH (09:00)
[2018-06-21] MEDS ORDERED: PANTOPRAZOLE 40 MG TABLET PO SCH (09:00)
[2018-06-21] MEDS ORDERED: ASPIRIN 325 MG TAB PO SCH (09:00)
--- NOTE | 2018-06-21 09:43 | CONS ---
CONSULTATION This is a 42-year-old obese lady with underlying history of depression, who also has some bronchial asthma type picture. She is under the care of Dr. Olvera. She came into the hospital with complaints of what she described as a sharp pain on the right side of her chest. The pain which was in the upper right side of the chest then switched over to the left side, sharp in nature in a stabbing fashion, took her breath away, came on and off and seemed to persist and made her quite concerned and she came into the hospital. Her pain is now resolved. She is comfortable, resting. Has no chest pain at all. After arrival her D-dimer was elevated. Troponins were normal. D- dimer was about 1.7. She went on to have a CT angiography which did not reveal any evidence of pulmonary embolism. She is resting comfortably at the time of my examination without any symptoms. PAST MEDICAL HISTORY: 1. Obesity. 2. Underlying depression. 3. No evidence of any prior myocardial infarction or CVA. SOCIAL HISTORY: Patient is not a smoker. Does not consume alcohol on a regular basis. MEDICATIONS: At home include Cymbalta, Protonix, Abilify, [place], BuSpar. ALLERGIES: SHE IS ALLERGIC TO CODEINE. EKG revealed a sinus mechanism without any acute changes. PHYSICAL EXAMINATION: Revealed a blood pressure of about 108/60, pulse rate is 68 per minute regular. HEENT: Unremarkable. Fundus was not examined by me. Neck is supple. There is no JVD. I do not hear a carotid bruit. Heart exam reveals S1, S2 heard normally without a rub, murmur or gallop. Lungs are clear. Abdomen is soft, nontender. Lower extremities reveal palpable pulses. No edema. There is no clinical evidence of DVT in the lower extremities. Central nervous system is normal. EKG revealed sinus mechanism, no acute changes. IMPRESSION: 1. Atypical chest pain. 2. Abnormal D-dimer. 3. Obesity. 4. Depression. RECOMMENDATIONS: Given the abnormal D-dimer I am recommending a venous Doppler to rule out DVT. CT angio was negative for any clot. If this is normal, we can probably discharge the patient and do a stress test as an outpatient. I discussed my thoughts in detail with the patient. Advised to come back and have a stress test either performed here in this hospital or through her primary care physician Dr. Olvera. I have advised increase activity at this time and we will do a venous Doppler this morning if possible. Thank you very much for the consult. MMMYRAL / IJN: [id number] /
--- NOTE | 2018-06-21 10:34 | US ---
EXAMINATION TYPE: US venous doppler duplex LE BI DATE OF EXAM: 06/21/2018 10:24 AM COMPARISON: NONE CLINICAL HISTORY: SOB. SOB, chest pain, elevated D-dimer SIDE PERFORMED: Bilateral TECHNIQUE: The lower extremity deep venous system is examined utilizing real time linear array sonog winsome with graded compression, doppler sonography and color-flow sonography. VESSELS IMAGED: External Iliac Vein (EIV) Common Femoral Vein Deep Femoral Vein Greater Saphenous Vein * Femoral Vein Popliteal Vein Small Saphenous Vein * Proximal Calf Veins (* superficial vessels) Technical limitations due to patient's body habitus and patient unable to tolerate compressions Right Leg: No evidence of DVT as visualized, unable to visualize lower femoral vein for compression Left Leg: No evidence of DVT as visualized No popliteal fossa lesion is seen. IMPRESSION: THIS EXAMINATION IS NEGATIVE FOR DVT IN BOTH LEGS.
[2018-06-21] MEDS: NITROGLYCERIN OINT 1 INCH/GM PACKET TOPICAL SCH (12:11)
[2018-06-21] MEDS: busPIRone HCl 10 MG TAB PO SCH (12:13)
[2018-06-21 12:23] VITALS: BP 121/78; PULSE 77; RESP 18; TEMP 98.6
--- NOTE | 2018-06-21 17:55 | DS ---
DISCHARGE SUMMARY DATE OF SERVICE: 06/21/2018. FINAL DIAGNOSES: 1. Chest pain, possible musculoskeletal pain, myocardial infarction ruled out. 2. Headaches. 3. Hysterectomy. 4. History of degenerative joint disease. 5. History of pilonidal cyst. 6. Anxiety, depression. DISCHARGE CONDITION: The patient is being discharged in stable condition with guarded prognosis. Cardiology recommended the patient to be discharged. HISTORY OF PRESENT ILLNESS: This 42-year-old woman with a past medical history of chest pain, myocardial infarction ruled out. Cardiology saw the patient and recommended outpatient followup. On exam, vital signs stable. Cardiovascular, S1 and S2 muffled. Lungs clear. Abdomen soft. Nervous system, no focal deficits. The patient's CTA and venous Doppler were negative for pulmonary embolism or any DVT. DISCHARGE INSTRUCTIONS: 1. Diet is cardiac. 2. Activity as tolerated. FOLLOWUP: 1. Follow up with Dr. Carmelita Olvera in 1 to [address] Tarah Escobedo in 1 week. 3. Outpatient stress test, possibly. Patient also mildly , LDL was 120. Recommend Lipitor and continued followup. MEDICATION: 1. Ventolin HFA 1 to 2 puffs every 6 hours p.r.n. 2. Abilify 2 mg p.o. daily. 3. BuSpar 10 mg p.o. b.i.d. 4. Cymbalta 60 mg as before and 90 mg at bedtime. 5. [place] 5 mg every 6 hours p.r.n. 6. Protonix 40 mg p.o. daily. 7. Zanaflex 8 mg at bedtime. 8. Topamax 100 mg p.o. t.i.d. 9. Lipitor 10 mg p.o. at bedtime. Once again, the patient is discharged in stable condition with guarded prognosis. MMODL / IJN: [id number] / MTDD
== END 2018-06-21 14:30 | disposition home or self-care (01) ==
LOC: EC 14:20 → 3OBS 16:08
PROVIDERS: ADMIT Hospitalist; ATTEND Hospitalist
DX: R07.89 Other chest pain (principal); R79.89 Other specified abnormal findings of blood chemistry; R51 Headache; J45.909 Unspecified asthma, uncomplicated; M19.90 Unspecified osteoarthritis, unspecified site; F41.9 Anxiety disorder, unspecified; F32.9 Major depressive disorder, single episode, unspecified; E66.9 Obesity, unspecified; Z68.42 Body mass index [BMI] 45.0-49.9, adult; Z79.899 Other long term (current) drug therapy; Z88.5 Allergy status to narcotic agent; Z91.048 Other nonmedicinal substance allergy status; Z87.2 Personal history of diseases of the skin and subcutaneous tissue; Z90.710 Acquired absence of both cervix and uterus
CPT/HCPCS: 99285 ×2; 36415; 93005; 85379; 80061; 80053; 80048; 82550 ×2; 82553 ×2; 83735; 84484 ×2; 85025 ×2; 85610; 85730; 81003; 71046; 93970; 71275; G0378 ×2; Q9967

== ENCOUNTER 2019-01-19 20:32 | Observation (INO) | payer OTHER ==
[2019-01-19 22:02] LABS: Basophils % (A) 0 %; Eosinophils % (A) 1 %; HCT 40.4 % (34.0-46.0); HGB 13.3 gm/dL (11.4-16.0); Lymphocytes # (A) 2.1 k/uL (1.0-4.8); Lymphocytes % (A) 60 %; MCH 29.5 pg (25.0-35.0); MCHC 33.1 g/dL (31.0-37.0); MCV 89.1 fL (80.0-100.0); Mean Platelet Volume 7.3; Monocytes # (A) 0.2 k/uL (0-1.0); Monocytes % (A) 6 %; Neutrophils % (A) 30 %; Platelet Count 140 k/uL (150-450); RBC 4.53 m/uL (3.80-5.40); RDW 13.3 % (11.5-15.5); WBC 3.5 k/uL (3.8-10.6)
--- NOTE | 2019-01-19 22:19 | ED ---
Dizziness HPI - General Chief Complaint: Dizziness Stated Complaint: INR low, blood clot in lungs Time Seen by Provider: 01/19/19 21:17 Source: patient, family Mode of arrival: ambulatory Limitations: no limitations - History of Present Illness Initial Comments: This patient is a 43-year-old woman who presents to be evaluated after she developed a feeling of which she referred to as dizziness, subsequently being described as lightheadedness, that developed when she was walking into school. The patient also reportedly had some discoloration of her hands and lips. The patient had a diagnosis of bilateral pulmonary embolus on January 05, being transf erred to [facility] for [facility]. The patient was discharged on Coumadin and Lovenox. She reports that she is taking her medications as prescribed, but that her last Coumadin level had still been subtherapeutic. The patient was told that her PE was related to a DVT in the right leg, and that that was related to being started on control. In addition patient has family history of blood clots. The patient's phoned her primary physician to describe the symptoms and they were told to go to the emergency room for evaluation. The patient is denying chest pain, dyspnea, any increase in her leg symptoms. MD Complaint: dizziness, lightheadedness -: hour(s) Timing: sudden onset Description: lightheadedness History of Same: Yes Severity: moderate Improves With: rest Worsens With: exertion - Related Data Home Medications Medication Instructions Recorded Confirmed DULoxetine HCL [Cymbalta] 60 mg PO HS 11/02/16 01/19/19 Topiramate [Topamax] 100 mg PO QAM 11/02/16 01/19/19 tiZANidine HCL [Zanaflex] 8 mg PO HS 11/02/16 01/19/19 Albuterol Inhaler [Ventolin Hfa 1 - 2 puff INHALATION RT-QID PRN 01/15/18 01/19/19 Inhaler] DULoxetine HCL [Cymbalta] 30 mg PO HS 01/15/18 01/19/19 Pantoprazole Sodium [Protonix] 40 mg PO DAILY 01/15/18 01/19/19 busPIRone HCl [Buspar] 10 mg PO BID 06/20/18 01/19/19 Beclomethasone Dip 80 Mcg/Puff 2 puff INHALATION RT-BID 01/08/19 01/19/19 [Qvar 80 mcg] Montelukast [Singulair] 10 mg PO HS 01/08/19 01/19/19 Naratriptan HCl [Amerge] 2.5 mg PO BID PRN 01/08/19 01/19/19 Oxybutynin Xl [Ditropan Xl] 5 mg PO HS 01/08/19 01/19/19 Topiramate [Topamax] 200 mg PO HS 01/08/19 01/19/19 Warfarin [Coumadin] 5 mg PO DIRECTED 01/19/19 01/19/19 Allergies Allergy/AdvReac Type Severity Reaction Status Date / Time codeine AdvReac passes out Verified 01/19/19 21:31 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 ROS Other: All systems not noted in ROS Statement are negative. Constitutional: Denies: fever, chills, weakness Respiratory: Denies: cough, dyspnea, wheezes, hemoptysis Cardiovascular: Reports: dyspnea on exertion, syncope (Near-syncopal episode). Denies: chest pain, palpitations, orthopnea, edema Gastrointestinal: Denies: abdominal pain, nausea, vomiting, melena, hematochezia Genitourinary: Denies: dysuria, hematuria Musculoskeletal: Denies: back pain Skin: Denies: rash Neurological: Denies: headache, weakness, numbness Hematological/Lymphatic: Denies: easy bleeding Past Medical History Past Medical History: COPD Additional Past Medical History / Comment(s): headaches History of Any Multi-Drug Resistant Organisms: None Reported Past Surgical History: Hysterectomy, Orthopedic Surgery Additional Past Surgical History / Comment(s): pilinidal cyst, bilateral feet, laproscopic knee procedure Past Psychological History: Anxiety, Depression Smoking Status: Never smoker Past Alcohol Use History: None Reported Past Drug Use History: None Reported - Past Family History Mother Family Medical History: Diabetes Mellitus, Deep Vein Thrombosis (DVT), Hypertension, Pulmonary Embolus Father History Unknown: Yes General Exam Limitations: no limitations General appearance: alert, in no apparent distress Head exam: Present: atraumatic, normocephalic Eye exam: Present: normal appearance. Absent: scleral icterus, conjunctival injection Respiratory exam: Present: normal lung sounds bilaterally. Absent: respiratory distress, wheezes, rales, rhonchi, stridor, accessory muscle use, decreased breath sounds, prolonged expiratory Cardiovascular Exam: Present: regular rate, normal rhythm, normal heart sounds. Absent: systolic murmur, diastolic murmur, rubs, gallop GI/Abdominal exam: Present: soft. Absent: tenderness, guarding, rebound, mass Extremities exam: Present: normal inspection, normal capillary refill. Absent: pedal edema Neurological exam: Present: alert Skin exam: Present: warm, dry, intact, normal color. Absent: rash, cyanosis Course Vital Signs 01/19/19 01/19/19 01/20/19 20:46 22:16 00:28 Temperature 98.3 F 97.9 F Pulse Rate 88 86 Pulse Rate [ Pulse Oximetery ] Respiratory 18 18 18 Rate Blood Pressure 136/92 136/92 Blood Pressure [Right Arm] O2 Sat by Pulse 98 98 Oximetry 01/20/19 01/20/19 01/20/19 00:48 04:00 08:30 Temperature 97.8 F Pulse Rate Pulse Rate [ 86 86 89 Pulse Oximetery ] Respiratory 16 18 16 Rate Blood Pressure Blood Pressure 123/72 123/72 118/75 [Right Arm] O2 Sat by Pulse 95 95 96 Oximetry EKG Findings - EKG Results: EKG: interpreted by ESTHER ANDERSON, sinus rhythm (Rate 83 bpm), normal axis, normal QRS, normal ST/T - NC, Pacemaker, Normal: Normal tracing: normal tracing Medical Decision Making - Medical Decision Making Patient's 43-year-old woman presenting for reevaluation after she had an episode of lightheadedness and some possible cyanosis. The computed tomography scan is performed today and we are not finding any evidence of worsening of her clot burden however her Coumadin level is very super therapeutic., Case is discussed with the treating physician from [facility], and I did read the CT report he feels that the patient does not require transfer back there, that she should probably be seen in the hospital here. - Lab Data Result diagrams: 01/20/19 11:17 01/21/19 06:05 Lab Results 01/19/19 01/19/19 01/19/19 Range/Units 21:44 21:44 21:44 WBC 3.5 L (3.8-10.6) k/uL RBC 4.53 (3.80-5.40) m/uL Hgb 13.3 (11.4-16.0) gm/dL Hct 40.4 (34.0-46.0) % MCV 89.1 (80.0-100.0) fL MCH 29.5 (25.0-35.0) pg MCHC 33.1 (31.0-37.0) g/dL RDW 13.3 (11.5-15.5) % Plt Count 140 L (150-450) k/uL Neutrophils % 30 % Lymphocytes % 60 % Monocytes % 6 % Eosinophils % 1 % Basophils % 0 % Neutrophils # 1.0 L (1.3-7.7) k/uL Lymphocytes # 2.1 (1.0-4.8) k/uL Monocytes # 0.2 (0-1.0) k/uL Eosinophils # 0.0 (0-0.7) k/uL Basophils # 0.0 (0-0.2) k/uL PT (9.0-12.0) sec INR (<1.2) APTT (22.0-30.0) sec Sodium 142 (137-145) mmol/L Potassium 3.1 L (3.5-5.1) mmol/L Chloride 111 H (98-107) mmol/L Carbon Dioxide 22 (22-30) mmol/L Anion Gap 9 mmol/L BUN 16 (7-17) mg/dL Creatinine 0.76 (0.52-1.04) mg/dL Est GFR (CKD-EPI)AfAm >90 (>60 ml/min/1.73 sqM) Est GFR (CKD-EPI)NonAf >90 (>60 ml/min/1.73 sqM) Glucose 116 H (74-99) mg/dL Calcium 8.4 (8.4-10.2) mg/dL Magnesium 1.9 (1.6-2.3) mg/dL Total Bilirubin 0.3 (0.2-1.3) mg/dL AST 34 (14-36) U/L ALT 26 (9-52) U/L Alkaline Phosphatase 91 (38-126) U/L Troponin I <0.012 (0.000-0.034) ng/mL Total Protein 6.4 (6.3-8.2) g/dL Albumin 3.3 L (3.5-5.0) g/dL 01/19/19 Range/Units 22:55 WBC (3.8-10.6) k/uL RBC (3.80-5.40) m/uL Hgb (11.4-16.0) gm/dL Hct (34.0-46.0) % MCV (80.0-100.0) fL MCH (25.0-35.0) pg MCHC (31.0-37.0) g/dL RDW (11.5-15.5) % Plt Count (150-450) k/uL Neutrophils % % Lymphocytes % % Monocytes % % Eosinophils % % Basophils % % Neutrophils # (1.3-7.7) k/uL Lymphocytes # (1.0-4.8) k/uL Monocytes # (0-1.0) k/uL Eosinophils # (0-0.7) k/uL Basophils # (0-0.2) k/uL PT >130.0 H (9.0-12.0) sec INR >10.0 H* (<1.2) APTT 140.4 H* (22.0-30.0) sec Sodium (137-145) mmol/L Potassium (3.5-5.1) mmol/L Chloride (98-107) mmol/L Carbon Dioxide (22-30) mmol/L Anion Gap mmol/L BUN (7-17) mg/dL Creatinine (0.52-1.04) mg/dL Est GFR (CKD-EPI)AfAm (>60 ml/min/1.73 sqM) Est GFR (CKD-EPI)NonAf (>60 ml/min/1.73 sqM) Glucose (74-99) mg/dL Calcium (8.4-10.2) mg/dL Magnesium (1.6-2.3) mg/dL Total Bilirubin (0.2-1.3) mg/dL AST (14-36) U/L ALT (9-52) U/L Alkaline Phosphatase (38-126) U/L Troponin I (0.000-0.034) ng/mL Total Protein (6.3-8.2) g/dL Albumin (3.5-5.0) g/dL Disposition Clinical Impression: Pulmonary infarct, Coumadin toxicity Disposition: ADMITTED IP TO THIS HOSP Condition: Fair
[2019-01-19 22:20] LABS: ALT 26 U/L (9-52); AST 34 U/L (14-36); Albumin 3.3 g/dL (3.5-5.0); Alkaline Phosphatase 91 U/L (38-126); Anion Gap 9 mmol/L; Blood Urea Nitrogen 16 mg/dL (7-17); Calcium 8.4 mg/dL (8.4-10.2); Carbon Dioxide 22 mmol/L (22-30); Chloride 111 mmol/L (98-107); Glucose 116 mg/dL (74-99); Magnesium 1.9 mg/dL (1.6-2.3); Potassium 3.1 mmol/L (3.5-5.1); Sodium 142 mmol/L (137-145); Total Bilirubin 0.3 mg/dL (0.2-1.3); Total Protein 6.4 g/dL (6.3-8.2)
--- NOTE | 2019-01-19 22:45 | CT ---
EXAM: CT Angiography Chest With Intravenous Contrast CLINICAL HISTORY: Pain TECHNIQUE: Axial computed tomographic angiography images of the chest with intravenous contrast using pulmonary embolism protocol. CTDI is 0.085, 0. 085, 1.5, 1.5, 1.5, 14.7 mGy and DLP is 539.5 mGy-cm. This CT exam was performed using one or more of the following dose reduction techniques: automated exposure control, adjustment of the mA and/or kV according to patient size, and/or use of iterative reconstruction technique. MIP reconstructed images were created and reviewed. COMPARISON: CTA chest dated 01/08/2019 FINDINGS: Pulmonary arteries: Right central bilateral segmental and subsegmental pulmonary emboli. The saddle embolus is no longer visualized. Aorta: No acute findings. No thoracic aortic aneurysm. Lungs: Scattered areas of ground glass opacities seen throughout both lungs which may represent: oligemia versus early pulmonary infarct or possible infection. Pleural space: Unremarkable. No significant effusion. No pneumothorax. Heart: Mild right heart strain. No significant pericardial effusion. Bones/joints: No acute fracture. No dislocation. Soft tissues: Unremarkable. Lymph nodes: Subcentimeter mediastinal lymph nodes, likely reactive. Liver: Lobular contour liver which may represent early cirrhosis. IMPRESSION: 1. Right central and bilateral segmental and subsegmental pulmonary emboli. Mild right heart strain. Slight interval improvement as compared to the prior. 2. Scattered areas of ground glass opacities seen throughout both lungs which may represent: oligemia versus early pulmonary infarct or possible infection. <MYCVCSECTION> Critical Value Communications 01/19/19 23:00 Verify Receipt Verified receipt with [facility] in the ER, report for Dr. Can on 01/19 23:00 (-04:00)
[2019-01-19] MEDS ORDERED: HEPARIN SODIUM,PORCINE 10,000 UNIT/ML 1 ML VIAL IV ONE (23:32)
[2019-01-19] MEDS ORDERED: HEPARIN SODIUM,PORCINE 5,000 UNIT/ML 1 ML VIAL IV PRN (23:32)
[2019-01-19 23:40] LABS: Prothrombin Time >130.0 sec (9.0-12.0)
[2019-01-19 23:44] LABS: INR >10.0 (<1.2)
[2019-01-19 23:45] LABS: Partial Thromboplastin Time 140.4 sec (22.0-30.0)
[2019-01-19] MEDS ORDERED: HEPARIN SOD,PORK IN 0.45% NACL 25,000 UNIT in 0.45% NACL 1 250ML.BAG IV SCH (23:45)
[2019-01-20] MEDS ORDERED: NALOXONE 0.4 MG/ML 1 ML VIAL IV PRN (00:17)
[2019-01-20] MEDS ORDERED: ONDANSETRON 4 MG/2 ML VIAL IVP PRN (00:17)
[2019-01-20] MEDS ORDERED: ACETAMINOPHEN TAB 325 MG TAB PO PRN (00:17)
[2019-01-20] MEDS ORDERED: SUMAtriptan SUCCINATE 50 MG TAB PO PRN (00:20)
[2019-01-20] MEDS ORDERED: ALBUTEROL NEBULIZED 2.5 MG/3 ML INHALATION PRN (00:20)
[2019-01-20] MEDS: SODIUM CHLORIDE 0.9% 1,000 ML IV SCH (04:23)
[2019-01-20 04:28] VITALS: BMI 47.6
[2019-01-20] MEDS: PANTOPRAZOLE 40 MG TABLET PO SCH (06:52)
[2019-01-20] MEDS: FAMOTIDINE 20 MG TAB PO SCH ×2 (08:40→20:07)
[2019-01-20] MEDS ORDERED: PHYTONADIONE ORAL 5 MG/5 ML ORAL.SYRG PO STA (08:48)
[2019-01-20] MEDS ORDERED: Potassium Replacement Protocol 1 EACH MISC MISCELLANE PRN (08:48)
[2019-01-20] MEDS: POTASSIUM CHLORIDE ER 20 MEQ TAB.ER PO SCH ×2 (09:38→10:37)
[2019-01-20] MEDS: FLUTICASONE 110 MCG INHALER INHALATION SCH ×2 (10:51→20:10)
[2019-01-20 11:29] LABS: HCT 40.4 % (34.0-46.0); MCH 28.8 pg (25.0-35.0); MCHC 32.1 g/dL (31.0-37.0); MCV 89.7 fL (80.0-100.0); Platelet Count 161 k/uL (150-450); RDW 13.4 % (11.5-15.5)
[2019-01-20 11:59] LABS: ALT 24 U/L (9-52); AST 36 U/L (14-36); Albumin 3.1 g/dL (3.5-5.0); Alkaline Phosphatase 79 U/L (38-126); Anion Gap 9 mmol/L; Blood Urea Nitrogen 13 mg/dL (7-17); Calcium 8.1 mg/dL (8.4-10.2); Carbon Dioxide 20 mmol/L (22-30); Chloride 111 mmol/L (98-107); Glucose 127 mg/dL (74-99); Magnesium 1.9 mg/dL (1.6-2.3); Potassium 3.3 mmol/L (3.5-5.1); Sodium 140 mmol/L (137-145); Total Bilirubin 0.3 mg/dL (0.2-1.3); Total Protein 5.9 g/dL (6.3-8.2)
[2019-01-20] MEDS: TOPIRAMATE 100 MG TAB PO SCH ×2 (12:02→20:07)
[2019-01-20] MEDS: busPIRone HCl 10 MG TAB PO SCH ×2 (12:02→20:07)
[2019-01-20] MEDS ORDERED: POTASSIUM CHLORIDE ER 20 MEQ TAB.ER PO STA (12:04)
[2019-01-20 12:45] LABS: Partial Thromboplastin Time 73.1 sec (22.0-30.0); Prothrombin Time 85.2 sec (9.0-12.0)
[2019-01-20 12:54] LABS: INR 8.7 (<1.2)
--- NOTE | 2019-01-20 17:06 | P.HPIM ---
History of Present Illness 43-year-old female came in with complains of shortness of breath patient does have history of asthma. Patient complaining of whitish sputum production patient had a CAT scan today which showed bilateral pulmonary embolism along with the right heart strain with some groundglass pacer days suspicious for pulmonary infarct. Patient had a recent pulmonary embolism for which patient was treated with thrombectomy followed by Coumadin. Patient was told her pulmonary embolism in bilateral lower limb DVT secondary to OCP she was started on with contribution from obesity. Patient here is found to have suprapubic cannot of greater than 10. Patient was discharged on bridging Lovenox which she continued until now and her Coumadin was stopped 3 days ago by her primary care physician. Patient denied any blood in the stools dark stools or any other bruising or excessive bleeding at this time. Patient was given vitamin K today morning patient is also with hyponatremic patient is saturating well on room air. Patient respiratory status improved now. Denied any fever doesn't have any leukocytosis. Review of Systems REVIEW OF SYSTEMS: CONSTITUTIONAL: No fever, no malaise, no fatigue. HEENT: No recent visual problems or hearing problems. Denied any sore throat. CARDIOVASCULAR: No chest pain, orthopnea, PND, no palpitations, no syncope. PULMONARY: no hemoptysis. GASTROINTESTINAL: No diarrhea, no nausea, no vomiting, no abdominal pain. NEUROLOGICAL: No headaches, no weakness, no numbness. HEMATOLOGICAL: Denies any bleeding or petechiae. GENITOURINARY: Denies any burning micturition, frequency, or urgency. MUSCULOSKELETAL/RHEUMATOLOGICAL: Denies any joint pain, swelling, or any muscle pain. ENDOCRINE: Denies any polyuria or polydipsia. The rest of the 14-point review of systems is negative. Past Medical History Past Medical History: Asthma, COPD Additional Past Medical History / Comment(s): headaches History of Any Multi-Drug Resistant Organisms: None Reported Past Surgical History: Hysterectomy, Orthopedic Surgery Additional Past Surgical History / Comment(s): pilinidal cyst, bilateral feet, laproscopic knee procedure Past Anesthesia/Blood Transfusion Reactions: No Reported Reaction Past Psychological History: Anxiety, Depression Smoking Status: Never smoker Past Alcohol Use History: None Reported Past Drug Use History: None Reported - Past Family History Mother Family Medical History: Diabetes Mellitus, Deep Vein Thrombosis (DVT), Hypert ension, Pulmonary Embolus Father History Unknown: Yes Medications and Allergies Home Medications Medication Instructions Recorded Confirmed Type DULoxetine HCL [Cymbalta] 60 mg PO HS 11/02/16 01/19/19 History Topiramate [Topamax] 100 mg PO QAM 11/02/16 01/19/19 History tiZANidine HCL [Zanaflex] 8 mg PO HS 11/02/16 01/19/19 History Albuterol Inhaler [Ventolin Hfa 1 - 2 puff INHALATION RT-QID PRN 01/15/1801/19 History Inhaler] DULoxetine HCL [Cymbalta] 30 mg PO HS 01/15/18 01/19/19 History Pantoprazole Sodium [Protonix] 40 mg PO DAILY 01/15/18 01/19/19 History busPIRone HCl [Buspar] 10 mg PO BID 06/20/18 01/19/19 History Beclomethasone Dip 80 Mcg/Puff 2 puff INHALATION RT-BID 01/08/19 01/19/19 History [Qvar 80 mcg] Montelukast [Singulair] 10 mg PO HS 01/08/19 01/19/19 History Naratriptan HCl [Amerge] 2.5 mg PO BID PRN 01/08/19 01/19/19 History Oxybutynin Xl [Ditropan Xl] 5 mg PO HS 01/08/19 01/19/19 History Topiramate [Topamax] 200 mg PO HS 01/08/19 01/19/19 History Warfarin [Coumadin] 5 mg PO DIRECTED 01/19/19 01/19/19 History Allergies Allergy/AdvReac Type Severity Reaction Status Date / Time codeine AdvReac passes out Verified 01/19/19 21:31 Hand Network Operations Lead Scent AdvReac asthma Uncoded 01/19/19 20:49 attack Physical Exam Vitals: Vital Signs Temp Pulse Pulse Resp BP BP Pulse Ox 01/20/19 15:56 91 18 01/20/19 15:31 98.0 F 91 18 122/90 97 01/20/19 12:13 82 18 01/20/19 12:12 97.9 F 82 18 120/87 97 01/20/19 08:30 97.8 F 89 16 118/75 96 04/10/19 04:00 86 18 123/72 95 01/20/19 00:48 86 16 123/72 95 01/20/19 00:28 97.9 F 86 18 136/92 98 01/19/19 22:16 18 01/19/19 20:46 98.3 F 88 18 136/92 98 Intake and Output 01/20/19 01/20/19 01/20/19 06:59 14:59 22:59 Intake Total 100 180 Output Total 400 Balance 100 -220 Intake: Oral 100 180 Output: Urine 400 Other: Voiding Method Toilet Toilet Toilet # Voids 1 Weight 113.4 kg PHYSICAL EXAMINATION: GENERAL: The patient is alert and oriented x3, not in any acute distress. Obese HEENT: Pupils are round and equally reacting to light. EOMI. No scleral icterus. No conjunctival pallor. Normocephalic, atraumatic. No pharyngeal erythema. No thyromegaly. CARDIOVASCULAR: S1 and S2 present. No murmurs, rubs, or gallops. PULMONARY: Chest is clear to auscultation, no wheezing or crackles. ABDOMEN: Soft, nontender, nondistended, normoactive bowel sounds. No palpable organomegaly. MUSCULOSKELETAL: No joint swelling or deformity. EXTREMITIES: No cyanosis, clubbing, or pedal edema. NEUROLOGICAL: Gross neurological examination did not reveal any focal deficits. SKIN: No rashes. Results CBC & Chem 7: 01/20/19 11:17 01/20/19 11:17 Labs: Abnormal Lab Results - Last 24 Hours (Table) 01/19/19 01/19/19 01/19/19 Range/Units 21:44 21:44 22:55 WBC 3.5 L (3.8-10.6) k/uL Plt Count 140 L (150-450) k/uL Neutrophils # 1.0 L (1.3-7.7) k/uL PT >130.0 H (9.0-12.0) sec INR >10.0 H* (<1.2) APTT 140.4 H* (22.0-30.0) sec Potassium 3.1 L (3.5-5.1) mmol/L Chloride 111 H (98-107) mmol/L Carbon Dioxide (22-30) mmol/L Glucose 116 H (74-99) mg/dL Calcium (8.4-10.2) mg/dL Total Protein (6.3-8.2) g/dL Albumin 3.3 L (3.5-5.0) g/dL 01/20/19 01/20/19 Range/Units 11:17 11:17 WBC (3.8-10.6) k/uL Plt Count (150-450) k/uL Neutrophils # (1.3-7.7) k/uL PT 85.2 H (9.0-12.0) sec INR 8.7 H* (<1.2) APTT 73.1 H (22.0-30.0) sec Potassium 3.3 L (3.5-5.1) mmol/L Chloride 111 H (98-107) mmol/L Carbon Dioxide 20 L (22-30) mmol/L Glucose 127 H (74-99) mg/dL Calcium 8.1 L (8.4-10.2) mg/dL Total Protein 5.9 L (6.3-8.2) g/dL Albumin 3.1 L (3.5-5.0) g/dL Thrombosis Risk Factor Assmnt - Choose All That Apply Any of the Below Risk Factors Present?: Yes Each Factor Represents 1 point: Abnormal pulmonary function (COPD) Other Risk Factors: Yes Each Risk Factor Represents 3 Points: Family history of DVT/PE, History of DVT/PE Thrombosis Risk Factor Assessment Total Risk Factor Score: 7 Thrombosis Risk Factor Assessment Level: High Risk Assessment and Plan Plan: -Subtherapeutic INR: Coumadin was discontinued and the patient was given vitamin K we'll repeat INR tomorrow. Comes down patient will be discharged on decreased dose of Coumadin. Patient will not require any Lovenox anymore. -Shortness of breath probably secondary to pulmonary contusion no further intervention at this time supportive care patient is breathing well at this time I do not believe patient is an asthma exacerbation -Mild to moderate persistent asthma without any acute exacerbation will not require any systemic steroids continue with inhaled steroids at this time is no evidence of pneumonia and -Recent pulmonary embolism and bilateral lower limb DVT for which patient is on Coumadin as well as Lovenox for further otic and further management as mentioned above. Patient can discontinue her anticoagulation in 3-6 months -Depression -History of migraine for which patient is on Topamax and Imitrex which will be continued Patient will require GI prophylaxis with Pepcid.
[2019-01-20] MEDS: DULoxetine HCL 60 MG CAPSULE.DR PO SCH (20:07)
[2019-01-20] MEDS: tiZANidine 4 MG TAB PO SCH (20:07)
[2019-01-20] MEDS: OXYBUTYNIN XL 5 MG TAB.ER.24 PO SCH (20:07)
[2019-01-20] MEDS: MONTELUKAST 10 MG TAB PO SCH (20:09)
[2019-01-21] MEDS: SODIUM CHLORIDE 0.9% 1,000 ML IV SCH (01:57)
[2019-01-21] MEDS: PANTOPRAZOLE 40 MG TABLET PO SCH (06:06)
[2019-01-21 06:58] LABS: Anion Gap 5 mmol/L; Blood Urea Nitrogen 12 mg/dL (7-17); Carbon Dioxide 25 mmol/L (22-30); Chloride 111 mmol/L (98-107); Glucose 90 mg/dL (74-99); Sodium 141 mmol/L (137-145)
[2019-01-21 06:59] LABS: Calcium 8.6 mg/dL (8.4-10.2)
[2019-01-21 07:01] LABS: INR 1.6 (<1.2); Prothrombin Time 16.3 sec (9.0-12.0)
[2019-01-21] MEDS: FLUTICASONE 110 MCG INHALER INHALATION SCH ×2 (07:13→20:39)
[2019-01-21] MEDS: busPIRone HCl 10 MG TAB PO SCH ×2 (09:31→20:03)
[2019-01-21] MEDS: TOPIRAMATE 100 MG TAB PO SCH ×2 (09:31→20:04)
[2019-01-21] MEDS: FAMOTIDINE 20 MG TAB PO SCH (09:31)
[2019-01-21] MEDS: ARIPiprazole 5 MG TAB PO SCH (13:12)
--- NOTE | 2019-01-21 15:23 | P.PN ---
Subjective Patient is admitted for supratherapeutic INR. We are verifying with insurance regarding approval for new anticoagulants. Meantime her high INR has come down to 1.6 with vitamin K because of which patient will be started on Lovenox until she started on new anticoagulants, otherwise by insurance company. He was pretty status improved no asthma exacerbation at this time Constitutional: Denied any fatigue denied any fever. Cardio vascular: denied any chest pain, palpitations Gastrointestinal denied any nausea vomiting Pulmonary: Denied any shortness of breath cough Neurologic denied any new focal deficits All inpatient medications were reviewed and appropriate changes in these medications as dictated in the interval history and assessment and plan. Objective - Vital Signs Vital signs: Vital Signs Temp 97.8 F 01/21/19 12:48 Pulse 91 01/21/19 12:48 Resp 18 01/21/19 12:48 BP 132/85 01/21/19 12:48 Pulse Ox 96 01/21/19 12:48 Intake & Output 01/20/19 01/21/19 01/21/19 18:59 06:59 18:59 Intake Total 540 655 Output Total 400 Balance 140 655 Weight 113.4 kg 113.2 kg Intake: Intake, IV Titration 10 Amount Sodium Chloride 0.9% 1, 10 000 ml @ 20 mls/hr IV . Q24H [facility] Rx#:[id number] Oral 540 645 Output: Urine 400 Other: Voiding Method Toilet Toilet # Voids 1 1 - Exam PHYSICAL EXAMINATION: GENERAL: The patient is alert and oriented x3, not in any acute distress. Obese HEENT: Pupils are round and equally reacting to light. EOMI. No scleral icterus. No conjunctival pallor. Normocephalic, atraumatic. No pharyngeal erythema. No thyromegaly. CARDIOVASCULAR: S1 and S2 present. No murmurs, rubs, or gallops. PULMONARY: Chest is clear to auscultation, no wheezing or crackles. ABDOMEN: Soft, nontender, nondistended, normoactive bowel sounds. No palpable organomegaly. MUSCULOSKELETAL: No joint swelling or deformity. EXTREMITIES: No cyanosis, clubbing, or pedal edema. NEUROLOGICAL: Gross neurological examination did not reveal any focal deficits. SKIN: No rashes. - Labs CBC & Chem 7: 01/20/19 11:17 01/21/19 06:05 Labs: Abnormal Lab Results - Last 24 Hours (Table) 01/21/19 01/21/19 Range/Units 06:05 06:05 PT 16.3 H (9.0-12.0) sec INR 1.6 H (<1.2) Chloride 111 H (98-107) mmol/L Assessment and Plan Plan: -Subtherapeutic INR: Coumadin was discontinued and the patient was given vitamin K, INR is 1.6 now and the patient will be started on Lovenox until her home anticoagulation medication history get out depending on all of his by her insurance -Shortness of breath probably secondary to pulmonary contusion no further intervention at this time supportive care patient is breathing well at this time I do not believe patient is an asthma exacerbation -Mild to moderate persistent asthma without any acute exacerbation will not require any systemic steroids continue with inhaled steroids at this time is no evidence of pneumonia and -Recent pulmonary embolism and bilateral lower limb DVT for which patient is on Coumadin as well as Lovenox for further otic and further management as mentioned above. Patient can discontinue her anticoagulation in 3-6 months -Depression -History of migraine for which patient is on Topamax and Imitrex which will be continued Patient will require GI prophylaxis with Pepcid.
[2019-01-21] MEDS: DULoxetine HCL 60 MG CAPSULE.DR PO SCH (20:03)
[2019-01-21] MEDS: MONTELUKAST 10 MG TAB PO SCH (20:04)
[2019-01-21] MEDS: ENOXAPARIN 100 MG/ML SYRINGE SQ SCH (20:04)
[2019-01-21] MEDS: OXYBUTYNIN XL 5 MG TAB.ER.24 PO SCH (20:04)
[2019-01-21] MEDS: tiZANidine 4 MG TAB PO SCH (20:04)
[2019-01-22] MEDS: SODIUM CHLORIDE 0.9% 1,000 ML IV SCH (02:02)
[2019-01-22] MEDS: PANTOPRAZOLE 40 MG TABLET PO SCH (06:24)
[2019-01-22 07:47] VITALS: BP 117/81; PULSE 76; RESP 16; TEMP 97.4
[2019-01-22] MEDS: TOPIRAMATE 100 MG TAB PO SCH (08:15)
[2019-01-22] MEDS: busPIRone HCl 10 MG TAB PO SCH (08:15)
[2019-01-22] MEDS: ENOXAPARIN 100 MG/ML SYRINGE SQ SCH (08:16)
[2019-01-22] MEDS: FLUTICASONE 110 MCG INHALER INHALATION SCH (08:23)
[2019-01-22] MEDS: ARIPiprazole 5 MG TAB PO SCH (08:34)
--- NOTE | 2019-01-22 12:43 | P.DS ---
Providers Date of admission: 01/20/19 00:20 Attending physician: Ori Mendez Primary care physician: [facility] Course: Patient is admitted for supratherapeutic INR. We are verifying with insurance regarding approval for new anticoagulants. Meantime her high INR has come down to 1.6 with vitamin K because of which patient will be started on Lovenox until she started on new anticoagulants, otherwise by insurance company. 01/22/2019 Patient is clinically doing well hemodynamically stable. No asthma exacerbation. Patient is approved for Xarelto and patient is being discharged on Xarelto PHYSICAL EXAMINATION: GENERAL: The patient is alert and oriented x3, not in any acute distress. Obese HEENT: Pupils are round and equally reacting to light. EOMI. No scleral icterus. No conjunctival pallor. Normocephalic, atraumatic. No pharyngeal erythema. No thyromegaly. CARDIOVASCULAR: S1 and S2 present. No murmurs, rubs, or gallops. PULMONARY: Chest is clear to auscultation, no wheezing or crackles. ABDOMEN: Soft, nontender, nondistended, normoactive bowel sounds. No palpable organomegaly. MUSCULOSKELETAL: No joint swelling or deformity. EXTREMITIES: No cyanosis, clubbing, or pedal edema. NEUROLOGICAL: Gross neurological examination did not reveal any focal deficits. SKIN: No rashes. Assessment and Plan Plan: -Subtherapeutic INR: Coumadin was discontinued and the patient was given vitamin K, INR has come down now and patient is being discharged on above-mentioned new anticoagulants -Shortness of breath probably secondary to pulmonary contusion which resolved now -Mild to moderate persistent asthma without any acute exacerbation will not require any systemic steroids continue with inhaled steroids at this time is no evidence of pneumonia and -Recent pulmonary embolism and bilateral lower limb DVT -Depression -History of migraine for which patient is on Topamax and Imitrex Patient Condition at Discharge: Fair Plan - Discharge Summary Discharge Rx Participant: No New Discharge Prescriptions: New Rivaroxaban [Xarelto] 20 mg PO HS #30 tab Continue tiZANidine HCL [Zanaflex] 8 mg PO HS DULoxetine HCL [Cymbalta] 60 mg PO HS Topiramate [Topamax] 100 mg PO QAM DULoxetine HCL [Cymbalta] 30 mg PO HS Albuterol Inhaler [Ventolin Hfa Inhaler] 1 - 2 puff INHALATION RT-QID PRN PRN Reason: Shortness Of Breath Pantoprazole Sodium [Protonix] 40 mg PO DAILY busPIRone HCl [Buspar] 10 mg PO BID Topiramate [Topamax] 200 mg PO HS Beclomethasone Dip 80 Mcg/Puff [Qvar 80 mcg] 2 puff INHALATION RT-BID Oxybutynin Xl [Ditropan XL] 5 mg PO HS Montelukast [Singulair] 10 mg PO HS Naratriptan HCl [Amerge] 2.5 mg PO BID PRN PRN Reason: Migraine Headache ARIPiprazole [Abilify] 5 mg PO DAILY Discontinued Warfarin [Coumadin] 5 mg PO DIRECTED Discharge Medication List DULoxetine HCL [Cymbalta] 60 mg PO HS 11/02/16 [History] Topiramate [Topamax] 100 mg PO QAM 11/02/16 [History] tiZANidine HCL [Zanaflex] 8 mg PO HS 11/02/16 [History] Albuterol Inhaler [Ventolin Hfa Inhaler] 1 - 2 puff INHALATION RT-QID PRN 01/15/18 [History] DULoxetine HCL [Cymbalta] 30 mg PO HS 01/15/18 [History] Pantoprazole Sodium [Protonix] 40 mg PO DAILY 01/15/18 [History] busPIRone HCl [Buspar] 10 mg PO BID 06/20/18 [History] Beclomethasone Dip 80 Mcg/Puff [Qvar 80 mcg] 2 puff INHALATION RT-BID 01/08/19 [History] Montelukast [Singulair] 10 mg PO HS 01/08/19 [History] Naratriptan HCl [Amerge] 2.5 mg PO BID PRN 01/08/19 [History] Oxybutynin Xl [Ditropan XL] 5 mg PO HS 01/08/19 [History] Topiramate [Topamax] 200 mg PO HS 01/08/19 [History] ARIPiprazole [Abilify] 5 mg PO DAILY 01/21/19 [History] Rivaroxaban [Xarelto] 20 mg PO HS #30 tab 01/22/19 [Rx] Follow up Appointment(s)/Referral(s): Carmelita Olvera MD [Primary Care Provider] - 01/27/19 2:00 pm Patient Instructions/Handouts: Vitamin K in Foods (DC), Safe Use of Anticoagulants (DC), Warfarin Toxicity (ED) Activity/Diet/Wound Care/Special Instructions: pt is approved through [place] for Xarelto
== END 2019-01-22 14:39 | disposition home or self-care (01) ==
LOC: EC 20:32 → INTOOBSV 01-20 00:20 → 3SCARD 01-20 00:20 → UNDODISIN 01-22 14:39
PROVIDERS: ADMIT Hospitalist; ATTEND Hospitalist
DX: R79.1 Abnormal coagulation profile (principal); I26.99 Other pulmonary embolism without acute cor pulmonale; I82.403 Acute embolism and thrombosis of unspecified deep veins of lower extremity, bilateral; T38.4X5A Adverse effect of oral contraceptives, initial encounter; E87.1 Hypo-osmolality and hyponatremia; J45.40 Moderate persistent asthma, uncomplicated; J44.9 Chronic obstructive pulmonary disease, unspecified; F41.9 Anxiety disorder, unspecified; F32.9 Major depressive disorder, single episode, unspecified; G43.909 Migraine, unspecified, not intractable, without status migrainosus; E66.9 Obesity, unspecified; Z68.42 Body mass index [BMI] 45.0-49.9, adult; Z79.01 Long term (current) use of anticoagulants; Z79.51 Long term (current) use of inhaled steroids; Z79.899 Other long term (current) drug therapy; Z88.5 Allergy status to narcotic agent; Z91.048 Other nonmedicinal substance allergy status; Z90.710 Acquired absence of both cervix and uterus; Z86.711 Personal history of pulmonary embolism; Z86.718 Personal history of other venous thrombosis and embolism; Z83.3 Family history of diabetes mellitus; Z83.2 Family history of diseases of the blood and blood-forming organs and certain disorders involving the immune mechanism; Z82.49 Family history of ischemic heart disease and other diseases of the circulatory system
CPT/HCPCS: 96372 ×2; 99285; 36415; 94640 ×5; 93005; 80053 ×2; 80048; 83735 ×2; 84484; 85025; 85027; 85610 ×3; 85730 ×2; 71275; G0378 ×3; J1650 ×2; Q9967

== ENCOUNTER 2019-02-02 01:05 | Emergency (ER) | payer OTHER ==
[2019-02-02 01:10] VITALS: BP 130/89; PULSE 86; RESP 18; TEMP 97.8
[2019-02-02] MEDS ORDERED: OXYMETAZOLINE 0.05% NASL SPRAY 1 SPRAY BOTTLE NASAL STA (01:12)
--- NOTE | 2019-02-02 02:13 | ED ---
ENT HPI - General Chief complaint: ENT Stated complaint: Nose bleed, cough Time Seen by Provider: 02/02/19 01:11 Source: patient, family Mode of arrival: ambulatory Limitations: no limitations - History of Present Illness Initial comments: 43-year-old female patient presents to the emergency department today for evaluation of epistaxis. Patient states about an hour and a half ago she began having bleeding from the right nostril. Patient states initially was a lot of blood which did soak through her shirt and pants. Patient states she did hold pressure was able to get it to stop. Patient states that she had no bleeding on the way here and then it started bleeding again when she arrived. Patient denies any dizziness or weakness. Denies any history of nosebleeds. Denies any facial pain or pressure. Denies headache. Patient did recently start Xarelto for pulmonary embolism. Patient states she was switched to this from Coumadin after her INR went greater than 10. Patient denies any recent rash, fever, chills, shortness breath, chest pain, abdominal pain, nausea, vomiting, diarrhea, constipation, back pain, numbness, tingling, hematuria, dysuria, urinary urgency, urinary frequency, headache, visual changes, or any other complaints. - Related Data Home Medications Medication Instructions Recorded Confirmed DULoxetine HCL [Cymbalta] 60 mg PO HS 11/02/16 01/19/19 Topiramate [Topamax] 100 mg PO QAM 11/02/16 01/19/19 tiZANidine HCL [Zanaflex] 8 mg PO HS 11/02/16 01/19/19 Albuterol Inhaler [Ventolin Hfa 1 - 2 puff INHALATION RT-QID PRN 01/15/18 01/19/19 Inhaler] DULoxetine HCL [Cymbalta] 30 mg PO HS 01/15/18 01/19/19 Pantoprazole Sodium [Protonix] 40 mg PO DAILY 01/15/18 01/19/19 busPIRone HCl [Buspar] 10 mg PO BID 06/20/18 01/19/19 Beclomethasone Dip 80 Mcg/Puff 2 puff INHALATION RT-BID 01/08/19 01/19/19 [Qvar 80 mcg] Montelukast [Singulair] 10 mg PO HS 01/08/19 01/19/19 Naratriptan HCl [Amerge] 2.5 mg PO BID PRN 01/08/19 01/19/19 Oxybutynin Xl [Ditropan XL] 5 mg PO HS 01/08/19 01/19/19 Topiramate [Topamax] 200 mg PO HS 01/08/19 01/19/19 ARIPiprazole [Abilify] 5 mg PO DAILY 01/21/19 01/21/19 Previous Rx's Medication Instructions Recorded Rivaroxaban [Xarelto] 20 mg PO HS #30 tab 01/22/19 Allergies Allergy/AdvReac Type Severity Reaction Status Date / Time codeine AdvReac passes out Verified 02/02/19 01:11 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 ROS Other: All systems not noted in ROS Statement are negative. Past Medical History Past Medical History: COPD, Pulmonary Embolus (PE) Additional Past Medical History / Comment(s): headaches History of Any Multi-Drug Resistant Organisms: None Reported Past Surgical History: Hysterectomy, Orthopedic Surgery Additional Past Surgical History / Comment(s): pilinidal cyst, bilateral feet, laproscopic knee procedure Past Anesthesia/Blood Transfusion Reactions: No Reported Reaction Past Psychological History: Anxiety, Depression Smoking Status: Never smoker Past Alcohol Use History: None Reported Past Drug Use History: None Reported - Past Family History Mother Family Medical History: Diabetes Mellitus, Deep Vein Thrombosis (DVT), Hypertension, Pulmonary Embolus Father History Unknown: Yes General Exam Limitations: no limitations General appearance: alert, in no apparent distress, other (Physical well- developed, well-nourished adult female patient in no acute distress. Vital signs upon presentation are temperature 97.8F, pulse 86, respirations 18, blood pressure 130/89, pulse ox 98% on room air.) Eye exam: Present: normal appearance, PERRL, EOMI. Absent: scleral icterus, conjunctival injection, periorbital swelling ENT exam: Present: mucous membranes moist, other (Patient has bleeding noted from the right naris, mild). Absent: normal exam Respiratory exam: Present: normal lung sounds bilaterally. Absent: respiratory distress, wheezes, rales, rhonchi, stridor Cardiovascular Exam: Present: regular rate, normal rhythm, normal heart sounds. Absent: systolic murmur, diastolic murmur, rubs, gallop, clicks Neurological exam: Present: alert, oriented X3, CN II-XII intact Psychiatric exam: Present: normal affect, normal mood Skin exam: Present: warm, dry, intact, normal color. Absent: rash Course Vital Signs 02/02/19 01:06 Temperature 97.8 F Pulse Rate 86 Respiratory 18 Rate Blood Pressure 130/89 O2 Sat by Pulse 98 Oximetry Medical Decision Making - Medical Decision Making 43-year-old female patient presents to the emergency department today for evalu ation of bleeding from her right nostril. Physical examination did reveal mild bleeding from the right nare. Was unable to visualize area of bleeding in the anterior nose. We did instill Afrin to the right nostril and hold pressure for 20 minutes. Upon reevaluation bleeding had ceased. Did monitor patient for a short period had her walk around the department. She had no further bleeding. She does feel comfortable being discharged home at this time. She is instructed to follow-up with her primary care physician for recheck in 1-2 days. She is instructed to obtain [id number] nasal saline to use twice daily to keep nasal passages moist. Return parameters were discussed in detail. She verbalizes understanding and agrees with this plan. Disposition Clinical Impression: Epistaxis Disposition: HOME SELF-CARE Condition: Good Instructions (If sedation given, give patient instructions): Nosebleed (ED) Additional Instructions: Follow up with your primary care physician for recheck as soon as possible. Use over the counter nasal saline twice daily to keep nasal passages moist. Return to the emergency department for any new, worsening, or concerning symptoms. Is patient prescribed a controlled substance at d/c from ED?: No Referrals: Carmelita Olvera MD [Primary Care Provider] - 1-2 days Time of Disposition: 02:13
== END 2019-02-02 02:20 | disposition home or self-care (01) ==
LOC: EC 01:05
DX: R04.0 Epistaxis (principal); R05 Cough; F41.9 Anxiety disorder, unspecified; F32.9 Major depressive disorder, single episode, unspecified; J44.9 Chronic obstructive pulmonary disease, unspecified; Z79.899 Other long term (current) drug therapy; Z88.5 Allergy status to narcotic agent; Z91.048 Other nonmedicinal substance allergy status; Z86.711 Personal history of pulmonary embolism
CPT/HCPCS: 99283

== ENCOUNTER → 2020-05-09 | Outpatient (CLI) | payer OTHER ==
--- NOTE | 2020-05-09 11:55 | CT ---
EXAMINATION TYPE: CT angio chest DATE OF EXAM: 05/09/2020 COMPARISON: Prior CT angiogram of the chest 01/19/2019, 12/29/2018 HISTORY: SOB, chest pain x5 days CT DLP: 605.3 mGycm Automated exposure control for dose reduction was used. CONTRAST: CTA scan of the thorax is performed with IV Contrast, patient injected with 80 mL of Isovue 370, pulm onary embolism protocol. MIP images are created and reviewed. 3D reconstructed images are created o n an independent workstation and reviewed. FINDINGS: LUNGS: The lungs are grossly clear, there is no concerning parenchymal mass or nodule identified. T here is no pleural effusion or pneumothorax seen. The tracheobronchial tree is patent. AORTA: No additional significant abnormality is seen. MEDIASTINUM: There is satisfactory enhancement of the pulmonary artery and its branches, there is no CT evidence for pulmonary embolism. There are no greater than 1 cm hilar or mediastinal lymph nodes. No pericardial effusion is seen. OTHER: There is a hiatal hernia present.The liver shows low attenuation likely due to hepatic steato sis. IMPRESSION: NO EVIDENT PULMONARY EMBOLISM.
== END | disposition home or self-care (01) ==
LOC: RADCTMAIN 10:49
PROVIDERS: ATTEND Family Medicine
DX: D68.59 Other primary thrombophilia (principal)
CPT/HCPCS: 71275; Q9967

== ENCOUNTER → 2021-09-12 | Outpatient (CLI) | payer OTHER ==
--- NOTE | 2021-09-13 10:22 | MR ---
EXAMINATION TYPE: MR knee RT wo con DATE OF EXAM: 09/12/2021 COMPARISON: MRI right knee 12/09/2017 and outside x-ray 08/14/2021. HISTORY: Outer right knee pain, locking, and swelling for over 5 years. History of right knee surgery TECHNIQUE: Multiplanar, multisequence imaging of the right knee is performed without IV contrast. FINDINGS: MEDIAL MENISCUS: Anterior and posterior horns are intact without tear. LATERAL MENISCUS: Anterior and posterior horns are intact without tear. CRUCIATE LIGAMENTS: The anterior and posterior cruciate ligaments are intact and unremarkable. COLLATERAL LIGAMENTS: The medial collateral ligament and lateral collateral ligament complex are inta ct and unremarkable. EXTENSOR MECHANISM: Visualized quadriceps and patellar tendons are intact. EFFUSION: Small suprapatellar joint effusion. POPLITEAL CYST: No popliteal/alegria cyst. TRICOMPARTMENT SPACES: Moderate to severe narrowing patellofemoral compartment with mild spurring red emonstrated. Mild to moderate narrowing with mild spurring medial and lateral tibiofemoral compartmen ts. CARTILAGE: Chondromalacia patella redemonstrated with significant full-thickness cartilaginous loss a long the posterior patellar pole. BONE MARROW SIGNAL: Small focus of increased T2 signal superior posterior patellar pole sagittal imag e 16 for reference slightly more prominent from prior MRI. OTHER: No additional significant abnormality is appreciated. IMPRESSION: 1. No meniscal or ligamentous tear is seen. 2. Small suprapatellar joint effusion slightly smaller in size than prior. 3. Tricompartment degenerative changes greatest patellofemoral compartment where there are moderate t o advanced findings which show interval degenerative progression from 2018 MRI.
== END | disposition home or self-care (01) ==
LOC: RADMRIMAIN 15:34
PROVIDERS: ATTEND Orthopaedic Surgery
DX: M17.11 Unilateral primary osteoarthritis, right knee (principal); M25.461 Effusion, right knee

== ENCOUNTER 2022-01-18 21:39 | Observation (INO) | payer OTHER ==
[2022-01-18 22:13] LABS: Basophils % (A) 1 %; Eosinophils # (A) 0.3 k/uL (0-0.7); Eosinophils % (A) 5 %; HCT 38.4 % (34.0-46.0); HGB 12.4 gm/dL (11.4-16.0); Lymphocytes # (A) 1.7 k/uL (1.0-4.8); Lymphocytes % (A) 28 %; MCH 30.6 pg (25.0-35.0); MCHC 32.2 g/dL (31.0-37.0); MCV 95.1 fL (80.0-100.0); Mean Platelet Volume 7.7; Monocytes # (A) 0.3 k/uL (0-1.0); Monocytes % (A) 6 %; Neutrophils # (A) 3.5 k/uL (1.3-7.7); Neutrophils % (A) 59 %; Platelet Count 184 k/uL (150-450); RBC 4.04 m/uL (3.80-5.40); RDW 13.6 % (11.5-15.5); WBC 5.9 k/uL (3.8-10.6)
[2022-01-18 22:28] LABS: Partial Thromboplastin Time 26.7 sec (22.0-30.0); Prothrombin Time 10.5 sec (9.0-12.0)
[2022-01-18 22:32] LABS: Albumin 3.5 g/dL (3.5-5.0); Calcium 8.3 mg/dL (8.4-10.2); Magnesium 1.8 mg/dL (1.6-2.3); Total Bilirubin 0.4 mg/dL (0.2-1.3); Total Protein 6.4 g/dL (6.3-8.2)
--- NOTE | 2022-01-18 22:34 | XR ---
EXAMINATION TYPE: XR chest 2V DATE OF EXAM: 01/18/2022 COMPARISON: 06/10/2019 HISTORY: Chest pain TECHNIQUE: FINDINGS: Heart and mediastinum are normal. Lungs are clear. Diaphragm is normal. Bony thorax appears normal. IMPRESSION: Normal chest. No change.
--- NOTE | 2022-01-18 22:45 | ED ---
Chest Pain HPI - General Chief Complaint: Chest Pain Stated Complaint: Chest pain Time Seen by Provider: 01/18/22 22:41 Source: patient, RN notes reviewed, old records reviewed Mode of arrival: wheelchair Limitations: no limitations - History of Present Illness Initial Comments: This is a 38-year-old female to the ER today for evaluation. Patient presents today for evaluation regards to chest pain. Patient has history of COPD mild shortness of breath and has history of PEs. Patient has no fevers no travel show sick contacts. States pains are pretty suddenly tonight. Patient has persistent here in the emergency department. MD Complaint: chest pain -: days(s) Pain Location: substernal, left chest Pain Radiation: back Severity: moderate Severity scale (1-10): 5 Quality: tightness Consistency: constant Improves With: nothing Worsens With: nothing Anginal Symptoms: dyspnea Other Symptoms: cough Treatments Prior to Arrival: none - Related Data Home Medications Medication Instructions Recorded Confirmed DULoxetine HCL [Cymbalta] 60 mg PO HS 11/02/16 01/18/22 Topiramate [Topamax] 100 mg PO DAILY 11/02/16 01/18/22 tiZANidine HCL [Zanaflex] 8 mg PO HS 11/02/16 01/18/22 Pantoprazole Sodium [Protonix] 40 mg PO DAILY 01/15/18 01/18/22 busPIRone HCl [Buspar] 10 mg PO BID 06/20/18 01/18/22 Montelukast [Singulair] 10 mg PO HS 01/08/19 01/18/22 Topiramate [Topamax] 200 mg PO HS 01/08/19 01/18/22 ARIPiprazole [Abilify] 5 mg PO DAILY 01/21/19 01/18/22 Albuterol Nebulized [Ventolin 2.5 mg INHALATION RT-Q6H PRN 12/27/21 01/18/22 Nebulized] Apixaban [Eliquis] 5 mg PO BID 12/27/21 01/18/22 Aspirin EC [Ecotrin Low Dose] 81 mg PO HS 12/27/21 01/18/22 Fluticasone/Salmeterol [Advair 2 puff INHALATION RT-BID 12/27/21 01/18/22 250-50 Diskus] Folic Acid 1 mg PO DAILY 12/27/21 01/18/22 Oxybutynin Chloride [Ditropan XL] 10 mg PO HS 12/27/21 01/18/22 Rizatriptan Odt [Maxalt NURSE AUDITOR] 10 mg PO DAILY PRN 12/27/21 01/18/22 traZODone HCL 50 mg PO HS 12/27/21 01/18/22 DULoxetine HCL [Cymbalta] 30 mg PO DAILY 01/18/22 01/18/22 Allergies Allergy/AdvReac Type Severity Reaction Status Date / Time codeine AdvReac passes out Verified 01/18/22 23:15 warfarin AdvReac Unknown Verified 01/18/22 23:15 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 ROS Other: All systems not noted in ROS Statement are negative. EKG Findings - EKG Comments: EKG Findings:: EKG sinus rhythm 75, MO 168 QRS 87 QTC 391 Past Medical History Past Medical History: COPD, Pulmonary Embolus (PE) Additional Past Medical History / Comment(s): headaches History of Any Multi-Drug Resistant Organisms: None Reported Past Surgical History: Hysterectomy, Orthopedic Surgery Additional Past Surgical History / Comment(s): pilinidal cyst, bilateral feet, laproscopic knee procedure Past Anesthesia/Blood Transfusion Reactions: No Reported Reaction Past Psychological History: Anxiety, Depression Smoking Status: Never smoker Past Alcohol Use History: None Reported Past Drug Use History: None Reported - Past Family History Mother Family Medical History: Diabetes Mellitus, Deep Vein Thrombosis (DVT), Hypertension, Pulmonary Embolus Father History Unknown: Yes Family Medical History: Eye Disorder, Hypertension General Exam Limitations: no limitations General appearance: alert, in no apparent distress Head exam: Present: atraumatic, normocephalic, normal inspection Eye exam: Present: normal appearance, PERRL, EOMI. Absent: scleral icterus, conjunctival injection, periorbital swelling ENT exam: Present: normal exam, mucous membranes moist Neck exam: Present: normal inspection. Absent: tenderness, meningismus, lymphadenopathy Respiratory exam: Present: normal lung sounds bilaterally. Absent: respiratory distress, wheezes, rales, rhonchi, stridor Cardiovascular Exam: Present: regular rate, normal rhythm, normal heart sounds. Absent: systolic murmur, diastolic murmur, rubs, gallop, clicks GI/Abdominal exam: Present: soft, normal bowel sounds. Absent: distended, tenderness, guarding, rebound, rigid Extremities exam: Present: normal inspection, full ROM, normal capillary refill. Absent: tenderness, pedal edema, joint swelling, calf tenderness Back exam: Present: normal inspection Neurological exam: Present: alert, oriented X3, CN II-XII intact Psychiatric exam: Present: normal affect, normal mood Skin exam: Present: warm, dry, intact, normal color. Absent: rash Course Vital Signs 01/18/22 21:41 Temperature 97.8 F Pulse Rate 77 Respiratory 18 Rate Blood Pressure 135/81 O2 Sat by Pulse 100 Oximetry - Reevaluation(s) Reevaluation #1: 01/18/22 23:54 Medical record is reviewed Reevaluation #2: 01/18/22 23:54 Patient informed of results and questions have been answered Reevaluation #3: 01/18/22 23:54 Patient still with persistent chest pain here in the ER - Consultations Consultation #1: Spoke with sound who agree for admission Chest Pain MDM - MDM 46 female to the emergency department for evaluation of chest pain persistent chest pain here in the emergency department. Patient's chest pain as heaviness left-sided chest. No travel history no sick contacts occasional shortness of breath with history of COPD. Patient will be admitted for chest pain observation Disposition Clinical Impression: Chest pain, Weakness Disposition: ADMITTED IP TO THIS [facility] Condition: Undetermined Instructions (If sedation given, give patient instructions): Chest Pain (ED) Is patient prescribed a controlled substance at d/c from ED?: No Referrals: Carmelita Olvera MD [Primary Care Provider] - 1-2 days
[2022-01-18] MEDS ORDERED: SODIUM CHLORIDE 0.9% 1,000 ML IV STA (22:47)
--- NOTE | 2022-01-18 23:25 | CT ---
EXAMINATION TYPE: CT angio chest DATE OF EXAM: 01/18/2022 COMPARISON: 12/27/2021 HISTORY: pain CT DLP: 850.6 mGycm Automated exposure control for dose reduction was used. CONTRAST: Performed with IV Contrast, patient injected with 50 mL of Isovue 370. Images obtained from the thoracic inlet to the diaphragm with IV contrast. There are Three-D postprocessed images. The lungs are clear of consolidation. There is no evidence of a pulmonary mass. There is no pleural e ffusion. There is no pericardial effusion. There is no mediastinal adenopathy. There are no hilar masses. Thoracic aorta is intact. No aneurysm or dissection. There is normal contrast opacification of the pulmonary arteries. There are no filling defects. The thoracic spine is intact. Sternum is intact. Upper abdominal soft tissues are intact. IMPRESSION: Normal exam. No evidence of pulmonary embolism.
[2022-01-18] MEDS ORDERED: SODIUM CHLORIDE 0.9% 1,000 ML IV SCH (23:45)
[2022-01-18] MEDS ORDERED: NITROGLYCERIN SL TABS 0.4 MG TAB SUBLINGUAL PRN (23:56)
[2022-01-18] MEDS ORDERED: MORPHINE SULFATE 4 MG/ML SYRINGE IV PRN (23:56)
[2022-01-18] MEDS ORDERED: ASPIRIN 81 MG PO STA (23:56)
[2022-01-19] MEDS ORDERED: PANTOPRAZOLE 40 MG TABLET PO STA (04:10)
[2022-01-19] MEDS ORDERED: ALBUTEROL NEBULIZED 2.5 MG/3 ML INHALATION PRN (04:11)
--- NOTE | 2022-01-19 04:13 | P.HPIM ---
History of Present Illness H&P Date: 01/19/22 Patient is a 46-year-old female with a PMH of PE/DVT on Eliquis, depression, asthma, chronic kidney disease, and chronic migraines who presents to the emergency room with complaints of chest pain. The patient reports sharp substernal chest discomfort, pleuritic in nature, which started at around 7 PM last night, constant, with associated shortness of breath. She reports multiple prior episodes of such chest discomfort, for which she has been evaluated by cardiology several times. Notes that the pain lasted for about an hour and then resolved spontaneously. Reports feeling back at her baseline at the time of interview. Denied experiencing nausea, vomiting, diaphoresis, or lightheadedness. Also denied fever, chills, cough, abdominal pain, diarrhea. Chest CTA in the emergency room was unremarkable. EKG showing sinus rhythm at 75 bpm with no significant ST/T-wave changes noted as reviewed by me. Laboratory evaluation revealed a troponin of less than 0.012, BUN 20, creatinine 1.38. Of note, the case was discussed in detail with the ED physician including that the patient underwent a stress echocardiogram for similar complaints on 12/28 which was unremarkable. The ED physician however insisted that the patient be admitted for cardiology evaluation. Review of systems: Pertinent positives and negatives as discussed in HPI, a complete review of systems was performed and all other systems are negative. Physical examination: General: non toxic, no distress, appears older than stated age, obese Derm: no unusual rashes/lesions no unusual ecchymoses, warm, dry Head: atraumatic, normocephalic, symmetric Eyes: EOMI, no lid lag, anicteric sclera, pupils equal round reactive to light ENT: Nose and ears atraumatic, no thrush, no pharyngeal erythema Neck: No thyromegaly, no cervical lymphadenopathy, trachea midline, supple Mouth: no lip lesion, mucus membranes moist Cardiovascular: S1S2 reg, no murmur, positive posterior tibial pulse bilateral, trace bilateral lower extremity pitting edema, capillary refill less than 2 seconds Lungs: CTA bilateral, no rhonchi, no rales , no accessory muscle use Abdominal: soft, nontender to palpation, no guarding, no appreciable organ omegaly, normal bowel sounds Ext: no gross muscle atrophy, muscle strength 5 out of 5 in all 4 extremities grossly, no contractures, Neuro: CN II-XI grossly intact, light touch intact all 4 extremities, finger to nose within normal limits, Psych: Alert, oriented, appropriate affect Assessment/plan Atypical chest pain -Cardiology consulted by ED -Cardiac monitoring -Trend troponin -Continue with Protonix Chronic conditions: History of PE/DVT, asthma, migraines -Continue home meds DVT prophylaxis -Eliquis The patient is admitted with an anticipated less than 2 midnight stay for evaluation of chest pain CODE STATUS: Full Code Discussed with: Patient Anticipated discharge date: in am Anticipated discharge place: Home Past Medical History Past Medical History: COPD, Pulmonary Embolus (PE) Additional Past Medical History / Comment(s): headaches History of Any Multi-Drug Resistant Organisms: None Reported Past Surgical History: Hysterectomy, Orthopedic Surgery Additional Past Surgical History / Comment(s): pilinidal cyst, bilateral feet, laproscopic knee procedure, pelvic sling Past Anesthesia/Blood Transfusion Reactions: No Reported Reaction Past Psychological History: Anxiety, Depression Smoking Status: Never smoker Past Alcohol Use History: None Reported Past Drug Use History: None Reported - Past Family History Mother Family Medical History: Diabetes Mellitus, Deep Vein Thrombosis (DVT), Hypertension, Pulmonary Embolus Father History Unknown: Yes Family Medical History: Eye Disorder, Hypertension Medications and Allergies Home Medications Medication Instructions Recorded Confirmed Type DULoxetine HCL [Cymbalta] 60 mg PO HS 11/02/16 01/18/22 History Topiramate [Topamax] 100 mg PO DAILY 11/02/16 01/18/22 History tiZANidine HCL [Zanaflex] 8 mg PO HS 11/02/16 01/18/22 History Pantoprazole Sodium [Protonix] 40 mg PO DAILY 01/15/18 01/18/22 History busPIRone HCl [Buspar] 10 mg PO BID 06/20/18 01/18/22 History Montelukast [Singulair] 10 mg PO HS 01/08/19 01/18/22 History Topiramate [Topamax] 200 mg PO HS 01/08/19 01/18/22 History ARIPiprazole [Abilify] 5 mg PO DAILY 01/21/19 01/18/22 History Albuterol Nebulized [Ventolin 2.5 mg INHALATION RT-Q6H PRN 12/27/21 01/18/22 History Nebulized] Apixaban [Eliquis] 5 mg PO BID 12/27/21 01/18/22 History Aspirin EC [Ecotrin Low Dose] 81 mg PO HS 12/27/21 01/18/22 History Fluticasone/Salmeterol [Advair 2 puff INHALATION RT-BID 12/27/21 01/18/22 History 250-50 Diskus] Folic Acid 1 mg PO DAILY 12/27/21 01/18/22 History Oxybutynin Chloride [Ditropan XL] 10 mg PO HS 12/27/21 01/18/22 History Rizatriptan Odt [Maxalt NIGHT BAKER] 10 mg PO DAILY PRN 12/27/21 01/18/22 History traZODone HCL 50 mg PO HS 12/27/21 01/18/22 History DULoxetine HCL [Cymbalta] 30 mg PO DAILY 01/18/22 01/18/22 History Allergies Allergy/AdvReac Type Severity Reaction Status Date / Time codeine AdvReac passes out Verified 01/18/22 23:15 warfarin AdvReac Unknown Verified 01/18/22 23:15 Hand Budget Accountant Scent AdvReac asthma Uncoded 01/18/22 23:15 attack Physical Exam Vitals: Vital Signs Temp Pulse Pulse Resp BP BP Pulse Ox 01/19/22 00:41 97.8 F 69 17 144/89 100 01/19/22 00:14 85 18 126/81 100 01/18/22 21:41 97.8 F 77 18 135/81 100 Intake and Output 01/18/22 01/18/22 01/19/22 14:59 22:59 06:59 Other: Voiding Method Toilet Weight 119.748 kg 119.748 kg Results CBC & Chem 7: 01/18/22 21:50 01/18/22 21:50 Labs: Abnormal Lab Results - Last 24 Hours (Table) 01/18/22 01/18/22 Range/Units 21:50 21:50 D-Dimer 0.69 H (<0.60) mg/L FEU Chloride 110 H (98-107) mmol/L Carbon Dioxide 19 L (22-30) mmol/L BUN 20 H (7-17) mg/dL Creatinine 1.38 H (0.52-1.04) mg/dL Glucose 106 H (74-99) mg/dL Calcium 8.3 L (8.4-10.2) mg/dL Thrombosis Risk Factor Assmnt - Choose All That Apply Any of the Below Risk Factors Present?: Yes Each Factor Represents 1 point: Abnormal pulmonary function (COPD), Age 41-60 years, Obesity (BMI >25) Other Risk Factors: Yes Each Risk Factor Represents 3 Points: History of DVT/PE Other congenital or acquired thrombophilia - If yes, enter type in comment: No Thrombosis Risk Factor Assessment Total Risk Factor Score: 6 Thrombosis Risk Factor Assessment Level: High Risk
[2022-01-19] MEDS ORDERED: SYMBICORT 80-4.5 MCG INHALER INHALATION SCH (08:00)
[2022-01-19 08:56] LABS: Chol/HDL Ratio 4.16 Ratio; LDL Cholesterol,Calculated 130.1 mg/dL (0.0-131.0); VLDL Calculation 15.04 mg/dL (5.00-40.00)
[2022-01-19] MEDS ORDERED: ARIPiprazole 5 MG TAB PO SCH (09:00)
[2022-01-19] MEDS ORDERED: ASPIRIN 325 MG TAB PO SCH (09:00)
[2022-01-19] MEDS ORDERED: busPIRone HCl 10 MG TAB PO SCH (09:00)
[2022-01-19] MEDS ORDERED: DULoxetine HCL 30 MG CAPSULE.DR PO SCH (09:00)
[2022-01-19] MEDS ORDERED: APIXABAN 5 MG TAB PO SCH (09:00)
[2022-01-19] MEDS ORDERED: TOPIRAMATE 100 MG TAB PO SCH ×2 (09:00→21:00)
[2022-01-19] MEDS ORDERED: ACETAMINOPHEN TAB 325 MG TAB PO PRN (09:19)
--- NOTE | 2022-01-19 12:54 | P.CRDCN ---
History of Present Illness Consult date: 01/19/22 Consult reason: chest pain History of present illness: History of present illness: This is a 46-year-old female with a with a past medical history of multiple pulmonary emboli on Eliquis, asthma, recurrent chest pain. She follows with Dr. Pantoja. We have been consulted for chest pain. Patient has had a dobutamine st ress test on 11/08/2021 which was negative. She had a recent hospitalization in December at which time she was treated for chest pain and near syncope and underwent a stress echocardiogram that was normal. She has had follow-up in the office with Dr. Beltre and is scheduled for repeat stress test on 02/01 and at that time talked about possible heart catheterization. Patient complains of chest pain that is in the center goes to her right arm and right torn neck and back. It hurts more when she exhales and is tender to touch. She states she has some dizziness and nausea, no palpitations. DIAGNOSTICS EKG reveals sinus rhythm, heart rate 65, poor R wave progression, no significant ST-T wave abnormalities, unchanged from previous. Telemetry tracings indicate sinus rhythm heart rate 60s80s Dobutamine Stress Echo on 11/08/2021 in the office that was negative for ischemia. CTA of the chest with no acute abnormality. No pulmonary embolism Chest x-ray is normal CBC is unremarkable. D-dimer 0.69. Chloride 110, CO2 19, BUN 20 creatinine 1.38. Blood sugar 106. Calcium 8.3. Liver function tests were normal. Magnesium 1.8. Troponin negative on 3 draws. Triglycerides 75, cholesterol 191, LDL 1:30, HDL 45 REVIEW OF SYSTEMS At the time of my exam: CONSTITUTIONAL: Denies fever or chills. CARDIOVASCULAR:+chest pain, +shortness of breath with activity,Denies orthopnea, PND or palpitations. RESPIRATORY: Denies cough. GASTROINTESTINAL: Denies abdominal pain, diarrhea, constipation, nausea or vomiting. MUSCULOSKELETAL: Denies myalgias. NEUROLOGIC: Denies numbness, tingling, headacbe or weakness. ENDOCRINE: Denies fatigue, weight change, polydipsia or polyurina. GENITOURINARY: Denies burning, hematuria or urgency with micturation. HEMATOLOGIC: Denies history of anemia or bleeding. PHYSICAL EXAMINATION CONSTITUTIONAL: No apparent distress. HEENT: Head is normocephalic. Pupils are equal, round. Sclerae anicteric. Mucous membranes of the mouth are moist. No JVD. No carotid bruit. CHEST EXAMINATION: Lungs are clear to auscultation. No chest wall tenderness is noted on palpation or with deep breathing. HEART EXAMINATION: Regular rate and rhythm. S1, S2 heard. No murmurs, gallops or rub. ABDOMEN: Soft, nontender. Positive bowel sounds. EXTREMITIES: 2+ peripheral pulses, no lower extremity edema and no calf tenderness. NEUROLOGIC EXAMINATION: Patient is awake, alert and oriented x3. ASSESSMENT Chest pain, atypical, acute coronary syndrome has been ruled out. Recent Dobutamine Stress Echo negative as well as recent stress echocardiogram normal History multiple pulmonary emboli on Eliquis Asthma PLAN From a cardiology perspective, patient is cleared for discharge and may follow- up with Dr. Pantoja in the office. Continue patient's current home cardiac medications Thank you kindly for this consultation Nurse practitioner note has been reviewed by physician. Signing provider agrees with the documented findings, assessment, and plan of care. Past Medical History Past Medical History: COPD, Pulmonary Embolus (PE) Additional Past Medical History / Comment(s): headaches History of Any Multi-Drug Resistant Organisms: None Reported Past Surgical History: Hysterectomy, Orthopedic Surgery Additional Past Surgical History / Comment(s): pilinidal cyst, bilateral feet, laproscopic knee procedure, pelvic sling Past Anesthesia/Blood Transfusion Reactions: No Reported Reaction Past Psychological History: Anxiety, Depression Smoking Status: Never smoker Past Alcohol Use History: None Reported Past Drug Use History: None Reported - Past Family History Mother Family Medical History: Diabetes Mellitus, Deep Vein Thrombosis (DVT), Hypertension, Pulmonary Embolus Father History Unknown: Yes Family Medical History: Eye Disorder, Hypertension Medications and Allergies Home Medications Medication Instructions Recorded Confirmed Type DULoxetine HCL [Cymbalta] 60 mg PO HS 11/02/16 01/18/22 History Topiramate [Topamax] 100 mg PO DAILY 11/02/16 01/18/22 History tiZANidine HCL [Zanaflex] 8 mg PO HS 11/02/16 01/18/22 History Pantoprazole Sodium [Protonix] 40 mg PO DAILY 01/15/18 01/18/22 History busPIRone HCl [Buspar] 10 mg PO BID 06/20/18 01/18/22 History Montelukast [Singulair] 10 mg PO HS 01/08/19 01/18/22 History Topiramate [Topamax] 200 mg PO HS 01/08/19 01/18/22 History ARIPiprazole [Abilify] 5 mg PO DAILY 01/21/19 01/18/22 History Albuterol Nebulized [Ventolin 2.5 mg INHALATION RT-Q6H PRN 12/27/21 01/18/22 History Nebulized] Apixaban [Eliquis] 5 mg PO BID 12/27/21 01/18/22 History Aspirin EC [Ecotrin Low Dose] 81 mg PO HS 12/27/21 01/18/22 History Fluticasone/Salmeterol [Advair 2 puff INHALATION RT-BID 12/27/21 01/18/22 History 250-50 Diskus] Folic Acid 1 mg PO DAILY 12/27/21 01/18/22 History Oxybutynin Chloride [Ditropan XL] 10 mg PO HS 12/27/21 01/18/22 History Rizatriptan Odt [Maxalt SECONDARY ENGLISH TEACHER] 10 mg PO DAILY PRN 12/27/21 01/18/22 History traZODone HCL 50 mg PO HS 12/27/21 01/18/22 History DULoxetine HCL [Cymbalta] 30 mg PO DAILY 01/18/22 01/18/22 History Allergies Allergy/AdvReac Type Severity Reaction Status Date / Time codeine AdvReac passes out Verified 01/18/22 23:15 warfarin AdvReac Unknown Verified 01/18/22 23:15 Hand Business Office Coordinator Scent AdvReac asthma Uncoded 01/18/22 23:15 attack Physical Exam Vitals: Vital Signs Temp Pulse Pulse Resp BP BP Pulse Ox 01/19/22 07:00 97.7 F 73 15 112/73 98 01/19/22 00:41 97.8 F 69 17 144/89 100 01/19/22 00:14 85 18 126/81 100 01/18/22 21:41 97.8 F 77 18 135/81 100 Intake and Output 01/18/22 01/19/22 01/19/22 22:59 06:59 14:59 Other: Voiding Method Toilet # Voids 1 Weight 119.748 kg 119.748 kg Results 01/18/22 21:50 01/18/22 21:50 Cardiac Enzymes 01/18/22 01/18/22 01/19/22 Range/Units 21:50 21:50 01:37 AST 18 (14-36) U/L Troponin I <0.012 <0.012 (0.000-0.034) ng/mL 01/19/22 Range/Units 05:43 AST (14-36) U/L Troponin I <0.012 (0.000-0.034) ng/mL Coagulation 01/18/22 Range/Units 21:50 PT 10.5 (9.0-12.0) sec APTT 26.7 (22.0-30.0) sec CBC 01/18/22 Range/Units 21:50 WBC 5.9 (3.8-10.6) k/uL RBC 4.04 (3.80-5.40) m/uL Hgb 12.4 (11.4-16.0) gm/dL Hct 38.4 (34.0-46.0) % Plt Count 184 (150-450) k/uL Comprehensive Metabolic Panel 01/18/22 Range/Units 21:50 Sodium 138 (137-145) mmol/L Potassium 4.0 (3.5-5.1) mmol/L Chloride 110 H (98-107) mmol/L Carbon Dioxide 19 L (22-30) mmol/L BUN 20 H (7-17) mg/dL Creatinine 1.38 H (0.52-1.04) mg/dL Glucose 106 H (74-99) mg/dL Calcium 8.3 L (8.4-10.2) mg/dL AST 18 (14-36) U/L ALT 16 (4-34) U/L Alkaline Phosphatase 73 (38-126) U/L Total Protein 6.4 (6.3-8.2) g/dL Albumin 3.5 (3.5-5.0) g/dL Current Medications Generic Name Dose Route Start Last Admin Trade Name Freq PRN Reason Stop Dose Admin Albuterol Sulfate 2.5 mg 01/19/22 04:11 Albuterol Nebulized 2.5 Mg/3 Ml INHALATION RT-Q6H PRN Shortness Of Breath Apixaban 5 mg 01/19/22 09:00 Apixaban 5 Mg Tab PO BID [facility] Protocol Aripiprazole 5 mg 01/19/22 09:00 Aripiprazole 5 Mg Tab PO DAILY [facility]AL[facility] Aspirin 81 mg 01/19/22 21:00 Aspirin 81 Mg PO HS KALIE Budesonide/Formoterol Fumarate 4 puff 01/19/22 08:00 01/19/22 07:53 Symbicort 80-4.5 Mcg Inhaler INHALATION 2 puff RT-BID [facility]ALIE Administration Buspirone HCl 10 mg 01/19/22 09:00 Buspirone Hcl 10 Mg Tab PO BID [facility]IE Duloxetine HCl 60 mg 01/19/22 21:00 Duloxetine Hcl 60 Mg Capsule. PO HS KALIE Duloxetine HCl 30 mg 01/19/22 09:00 Duloxetine Hcl 30 Mg Capsule.Dr PO DAILY [facility]IE Sodium Chloride 1,000 mls @ 20 mls/hr 01/18/22 23:45 01/19/22 01:03 Saline 0.9% IV 20 mls/hr .Q24H KALIE Administration Montelukast Sodium 10 mg 01/19/22 21:00 Montelukast 10 Mg Tab PO HS [facility] Nitroglycerin 0.4 mg 01/18/22 23:56 Nitroglycerin Sl Tabs 0.4 Mg Tab SUBLINGUAL Q5M PRN Chest Pain Oxybutynin Chloride 10 mg 01/19/22 21:00 Oxybutynin 10 Mg Tab.Er.24 PO HS [facility] Pantoprazole Sodium 40 mg 01/19/22 16:00 Pantoprazole 40 Mg Tablet PO AC-BRKFST [facility]ALIE Tizanidine HCl 8 mg 01/19/22 21:00 Tizanidine 4 Mg Tab PO HS [facility] Topiramate 200 mg 01/19/22 21:00 Topiramate 100 Mg Tab PO HS [facility] Topiramate 100 mg 01/19/22 09:00 Topiramate 100 Mg Tab PO DAILY [facility] Trazodone HCl 50 mg 01/19/22 21:00 Trazodone Hcl 50 Mg Tab PO HS [facility] Intake and Output 01/18/22 01/19/22 01/19/22 22:59 06:59 14:59 Other: Voiding Method Toilet # Voids 1 Weight 119.748 kg 119.748 kg 01/18/22 21:50 01/18/22 21:50
[2022-01-19 13:38] VITALS: BP 107/71; PULSE 81; RESP 16; TEMP 97.9
[2022-01-19] MEDS ORDERED: PANTOPRAZOLE 40 MG TABLET PO SCH (16:00)
--- NOTE | 2022-01-19 16:01 | P.DS ---
Providers Date of admission: 01/19/22 00:01 Expected date of discharge: 01/19/22 Attending physician: Eloisa Valdez MD Consults: 01/18/22 23:56 Consult Physician Urgent Consulting Provider: Taya Celestin Consult Reason/Comments: cp Do you want consulting provider notified?: Yes Primary care physician: Grace Hospital Course: Patient is a 46-year-old female with a PMH of PE/DVT on Eliquis, depression, asthma, chronic kidney disease, and chronic migraines who presents to the emergency room with complaints of chest pain. The patient reports sharp substernal chest discomfort, pleuritic in nature, which started at around 7 PM last night, constant, with associated shortness of breath. She reports multiple prior episodes of such chest discomfort, for which she has been evaluated by cardiology several times. Notes that the pain lasted for about an hour and then resolved spontaneously. Reports feeling back at her baseline at the time of interview. Denied experiencing nausea, vomiting, diaphoresis, or lightheadedness. Also denied fever, chills, cough, abdominal pain, diarrhea. Chest CTA in the emergency room was unremarkable. EKG showing sinus rhythm at 7 5 bpm with no significant ST/T-wave changes noted as reviewed by me. Laboratory evaluation revealed a troponin of less than 0.012, BUN 20, creatinine 1.38. Of note, the case was discussed in detail with the ED physician including that the patient underwent a stress echocardiogram for similar complaints on 12/28 which was unremarkable. The ED physician however insisted that the patient be admitte d for cardiology evaluation. Troponins were trended and ACS was ruled out. Cardiology was consulted and recommended outpatient follow-up. Patient was cleared for discharge from cardiology perspective. She was seen and examined on 01/20/2020. She reported resolution of her chest pain and was excited to go home to attend a birthday republican. She was advised to follow-up with her cookee within 1 week of discharge. She was advised follow-up with her PCP within 3 days of discharge. Patient and spouse verbalized understanding of the plan. This discharge took about 50 minutes to complete. Discharge diagnosis: #Atypical chest pain #Morbid obesity #Acute kidney injury Pertinent Studies: Troponin, EKG Patient Condition at Discharge: Good Plan - Discharge Summary Discharge Rx Participant: No New Discharge Prescriptions: Continue tiZANidine HCL [Zanaflex] 8 mg PO HS DULoxetine HCL [Cymbalta] 60 mg PO HS Topiramate [Topamax] 100 mg PO DAILY Pantoprazole Sodium [Protonix] 40 mg PO DAILY busPIRone HCl [Buspar] 10 mg PO BID Topiramate [Topamax] 200 mg PO HS Montelukast [Singulair] 10 mg PO HS ARIPiprazole [Abilify] 5 mg PO DAILY traZODone HCL 50 mg PO HS Rizatriptan Odt [Maxalt SALES ASSISTANT] 10 mg PO DAILY PRN PRN Reason: Migraine Headache Aspirin EC [Ecotrin Low Dose] 81 mg PO HS Albuterol Nebulized [Ventolin Nebulized] 2.5 mg INHALATION RT-Q6H PRN PRN Reason: Shortness Of Breath DULoxetine HCL [Cymbalta] 30 mg PO DAILY Oxybutynin Chloride [Ditropan XL] 10 mg PO HS Folic Acid 1 mg PO DAILY Apixaban [Eliquis] 5 mg PO BID Fluticasone/Salmeterol [Advair 250-50 Diskus] 2 puff INHALATION RT-BID Discharge Medication List DULoxetine HCL [Cymbalta] 60 mg PO HS 11/02/16 [History] Topiramate [Topamax] 100 mg PO DAILY 11/02/16 [History] tiZANidine HCL [Zanaflex] 8 mg PO HS 11/02/16 [History] Pantoprazole Sodium [Protonix] 40 mg PO DAILY 01/15/18 [History] busPIRone HCl [Buspar] 10 mg PO BID 06/20/18 [History] Montelukast [Singulair] 10 mg PO HS 01/08/19 [History] Topiramate [Topamax] 200 mg PO HS 01/08/19 [History] ARIPiprazole [Abilify] 5 mg PO DAILY 01/21/19 [History] Albuterol Nebulized [Ventolin Nebulized] 2.5 mg INHALATION RT-Q6H PRN 12/27/21 [History] Apixaban [Eliquis] 5 mg PO BID 12/27/21 [History] Aspirin EC [Ecotrin Low Dose] 81 mg PO HS 12/27/21 [History] Fluticasone/Salmeterol [Advair 250-50 Diskus] 2 puff INHALATION RT-BID 12/27/21 [History] Folic Acid 1 mg PO DAILY 12/27/21 [History] Oxybutynin Chloride [Ditropan XL] 10 mg PO HS 12/27/21 [History] Rizatriptan Odt [Maxalt SALES ASSISTANT] 10 mg PO DAILY PRN 12/27/21 [History] traZODone HCL 50 mg PO HS 12/27/21 [History] DULoxetine HCL [Cymbalta] 30 mg PO DAILY 01/18/22 [History] Follow up Appointment(s)/Referral(s): Carmelita Olvera MD [Primary Care Provider] - 1-2 days Justin Pantoja MD [STAFF PHYSICIAN] - 1 Week Patient Instructions/Handouts: Chest Pain (ED) Activity/Diet/Wound Care/Special Instructions: Diet: Cardiac Follow-up with your PCP within 3 days of discharge. Come back to the ED or call 911 for worsening chest pain or shortness of breath, palpitations or dizziness. Follow-up with cardiology within 1 weeks of discharge. Discharge Disposition: HOME SELF-CARE
[2022-01-19] MEDS ORDERED: traZODone HCL 50 MG TAB PO SCH (21:00)
[2022-01-19] MEDS ORDERED: tiZANidine 4 MG TAB PO SCH (21:00)
[2022-01-19] MEDS ORDERED: DULoxetine HCL 60 MG CAPSULE.DR PO SCH (21:00)
[2022-01-19] MEDS ORDERED: MONTELUKAST 10 MG TAB PO SCH (21:00)
[2022-01-19] MEDS ORDERED: ASPIRIN 81 MG PO SCH (21:00)
[2022-01-19] MEDS ORDERED: OXYBUTYNIN 10 MG TAB.ER.24 PO SCH (21:00)
== END 2022-01-19 15:05 | disposition home or self-care (01) ==
LOC: EC 21:39 → 6NMEDSUR 01-19 00:01
PROVIDERS: ADMIT Internal Medicine; ATTEND Internal Medicine
DX: R07.89 Other chest pain (principal); N17.9 Acute kidney failure, unspecified; J44.9 Chronic obstructive pulmonary disease, unspecified; N18.9 Chronic kidney disease, unspecified; G43.909 Migraine, unspecified, not intractable, without status migrainosus; E66.01 Morbid (severe) obesity due to excess calories; Z68.42 Body mass index [BMI] 45.0-49.9, adult; F32.A Depression, unspecified; F41.9 Anxiety disorder, unspecified; R53.1 Weakness; R11.0 Nausea; R42 Dizziness and giddiness; Z86.711 Personal history of pulmonary embolism; Z79.01 Long term (current) use of anticoagulants; Z79.82 Long term (current) use of aspirin; Z79.51 Long term (current) use of inhaled steroids; Z79.899 Other long term (current) drug therapy; Z88.5 Allergy status to narcotic agent; Z88.8 Allergy status to other drugs, medicaments and biological substances; Z91.048 Other nonmedicinal substance allergy status; Z90.710 Acquired absence of both cervix and uterus; Z98.890 Other specified postprocedural states; Z86.718 Personal history of other venous thrombosis and embolism; Z83.3 Family history of diabetes mellitus; Z82.49 Family history of ischemic heart disease and other diseases of the circulatory system; Z83.518 Family history of other specified eye disorder
CPT/HCPCS: 96374; 96361; 99285; 36415; 94640; 93005; 85379; 80061; 80053; 83735; 84484; 85025; 85610; 85730; 71046; 71275; G0378; J2270; Q9967

== ENCOUNTER → 2022-03-23 | Outpatient (CLI) | payer OTHER ==
--- NOTE | 2022-03-24 04:40 | MR ---
EXAMINATION TYPE: MR brain wo/w con DATE OF EXAM: 03/23/2022 COMPARISON: January 12, 2018 HISTORY: Memory issues. CONTRAST: Standard multiplanar, multisequence MRI departmental protocol images were obtained without contrast a nd with 12 mL intravenous Gadavist gadolinium contrast. Diffusion images show no evidence of an acute infarct. Ventricles have normal size. There is no mass effect or midline shift. No sign of intracranial hemorrhage. The keenan and white matter structures hav e fairly normal signal pattern. No evidence of cerebral edema. On the T2 images there is a single 6 m m focus of increased signal in the central brainstem at the medulla but appears normal on the FLAIR i mages. This could be an artifact. There is normal enhancement of the venous sinuses. There is no pathologic enhancement. No evidence of a posterior fossa mass. The sella turcica appears normal. Corpus callosum appears normal. No evidence of orbital mass. IMPRESSION: Negative MR scan of the brain. No adverse change compared to old exam. IMPRESSION:
== END | disposition home or self-care (01) ==
LOC: RADMRIMAIN 14:16
PROVIDERS: ATTEND Family Medicine
DX: R41.3 Other amnesia (principal)
CPT/HCPCS: 70553

== ENCOUNTER → 2023-02-11 | Outpatient (CLI) | payer OTHER ==
--- NOTE | 2023-02-11 13:07 | MR ---
EXAMINATION TYPE: MR lumbar spine wo con DATE OF EXAM: 02/11/2023 12:13 PM COMPARISON: 12/27/2021. CLINICAL INDICATION:Female, 47 years old with history of M54.16 RADICULOPATHY, LUMBAR REGION; Chronic lower back pain. TECHNIQUE: Multi planar, multi sequence imaging was performed utilizing: T1-weighted, T2-weighted, a nd turbo inversion recovery imaging of the lumbar spine. IV Contrast: None. FINDINGS: Alignment: The lumbar vertebral bodies have preserved heights and alignment. Cord: The conus medullaris and the distal spinal cord appear unremarkable with regards to their signa l intensity and morphology. Bones/Discs: L1 and T11 vertebral body high T1/T2 signal probable vertebral body hemangioma. No abnor mal bony edema on inversion recovery sequences. Significant degeneration changes throughout the spine . T12-L1: No evidence of significant spinal canal stenosis or neural foraminal stenosis. L1-L2: No evidence of significant spinal canal stenosis or neural foraminal stenosis. L2-L3: No evidence of significant spinal canal stenosis or neural foraminal stenosis. L3-L4: No evidence of significant spinal canal stenosis or neural foraminal stenosis. L4-L5: No evidence of significant spinal canal stenosis or neural foraminal stenosis. Trace right fac et joint effusion. L5-S1: No evidence of significant spinal canal stenosis or neural foraminal stenosis. Trace left face t joint effusion. Other findings: None. IMPRESSION: 1. No definitive evidence of disc herniation or significant spinal canal stenosis. 2. No significant disc degeneration or associated osteoarthritic changes.
== END | disposition home or self-care (01) ==
LOC: RADMRIMAIN 10:47
PROVIDERS: ATTEND Family Medicine
DX: M54.16 Radiculopathy, lumbar region (principal); G89.29 Other chronic pain
CPT/HCPCS: 72148

== ENCOUNTER 2023-10-20 22:17 | Emergency (ER) | payer OTHER ==
[2023-10-20 22:33] VITALS: BP 136/89; PULSE 70; RESP 18; TEMP 97.8
[2023-10-20 23:06] LABS: Basophils % (A) 1 %; Eosinophils # (A) 0.2 k/uL (0-0.7); Eosinophils % (A) 4 %; HGB 13.2 gm/dL (11.4-16.0); Lymphocytes # (A) 1.6 k/uL (1.0-4.8); Lymphocytes % (A) 24 %; MCH 29.4 pg (25.0-35.0); MCHC 32.2 g/dL (31.0-37.0); MCV 91.4 fL (80.0-100.0); Mean Platelet Volume 7.8; Monocytes # (A) 0.4 k/uL (0-1.0); Monocytes % (A) 6 %; Neutrophils # (A) 4.1 k/uL (1.3-7.7); Neutrophils % (A) 63 %; Platelet Count 144 k/uL (150-450); RBC 4.49 m/uL (3.80-5.40); WBC 6.4 k/uL (3.8-10.6)
[2023-10-20 23:14] LABS: ALT 20 U/L (4-34); AST 22 U/L (14-36); African American GFR (CKD) 61 (>60 ml/min/1.73 sqM); Albumin 3.9 g/dL (3.5-5.0); Alkaline Phosphatase 103 U/L (38-126); Anion Gap 9 mmol/L; Blood Urea Nitrogen 18 mg/dL (7-17); Calcium 8.6 mg/dL (8.4-10.2); Carbon Dioxide 24 mmol/L (22-30); Chloride 106 mmol/L (98-107); Creatine Kinase 33 U/L (30-135); Glucose 102 mg/dL (74-99); Non-African American GFR(CKD) 53 (>60 ml/min/1.73 sqM); Potassium 3.5 mmol/L (3.5-5.1); Sodium 139 mmol/L (137-145); Total Bilirubin 0.4 mg/dL (0.2-1.3); Total Protein 6.7 g/dL (6.3-8.2)
[2023-10-20] MEDS ORDERED: SODIUM CHLORIDE 0.9% 500 ML 500 ML IV STA (23:37)
[2023-10-20] MEDS ORDERED: METOCLOPRAMIDE 5 MG/ML 2 ML VIAL IVP STA (23:37)
[2023-10-20] MEDS ORDERED: diphenhydrAMINE 50 MG/ML 1 ML VIAL IVP STA (23:37)
--- NOTE | 2023-10-20 23:42 | ED ---
General Adult HPI - General Chief complaint: Neuro Symptoms/Deficit Stated complaint: AMS,Dizziness, L Eye Pain Time Seen by Provider: 10/20/23 23:27 Source: patient, family Mode of arrival: ambulatory Limitations: no limitations - History of Present Illness Initial comments: 's patient is 48-year-old woman who presents to have evaluation of headache, d danikaziness, that is been going on proximally 10 days now. Patient states that she does tend to get headaches but that this one is completely atypical of her usual headaches. She states that she typically has retro-orbital pain that then spreads across the front of her head. Pain currently moderate intensity. It has been severe previously. The patient states that this headache is located in the occipital area, greater on the left but also somewhat to the right. She does have a little bit of the usual retro-orbital pain. She has not noted change in vision or other sensation. No neurologic symptoms. Onset/Timin -: days(s) Location: head, eyes Radiation: non-radiation Quality: aching Consistency: constant Improves with: other (sleep) Worsens with: none Treatments Prior to Arrival: none - Related Data Home Medications Medication Instructions Recorded Confirmed DULoxetine HCL [Cymbalta] 60 mg PO HS 11/02/16 01/18/22 Topiramate [Topamax] 100 mg PO DAILY 11/02/16 01/18/22 tiZANidine HCL [Zanaflex] 8 mg PO HS 11/02/16 01/18/22 Pantoprazole Sodium [Protonix] 40 mg PO DAILY 01/15/18 01/18/22 busPIRone HCl [Buspar] 10 mg PO BID 06/20/18 01/18/22 Montelukast [Singulair] 10 mg PO HS 01/08/19 01/18/22 Topiramate [Topamax] 200 mg PO HS 01/08/19 01/18/22 ARIPiprazole [Abilify] 5 mg PO DAILY 01/21/19 01/18/22 Albuterol Nebulized [Ventolin 2.5 mg INHALATION RT-Q6H PRN 12/27/21 01/18/22 Nebulized] Apixaban [Eliquis] 5 mg PO BID 12/27/21 01/18/22 Aspirin EC [Ecotrin Low Dose] 81 mg PO HS 12/27/21 01/18/22 Fluticasone Propion/Salmeterol 2 puff INHALATION RT-BID 12/27/21 01/18/22 [Advair 250-50 Diskus] Folic Acid 1 mg PO DAILY 12/27/21 01/18/22 Rizatriptan Odt [Maxalt WATER CONTROL STATION ENGINEER] 10 mg PO DAILY PRN 12/27/21 01/18/22 oxyBUTYnin chloride [Ditropan XL] 10 mg PO HS 12/27/21 01/18/22 traZODone HCL 50 mg PO HS 12/27/21 01/18/22 DULoxetine HCL [Cymbalta] 30 mg PO DAILY 01/18/22 01/18/22 Previous Rx's Medication Instructions Recorded Metoclopramide [Reglan] 10 mg PO Q6H PRN #10 tab 10/21/23 Allergies Allergy/AdvReac Type Severity Reaction Status Date / Time codeine AdvReac passes out Verified 10/20/23 22:33 warfarin AdvReac Unknown Verified 10/20/23 22:33 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 ROS Other: All systems not noted in ROS Statement are negative. Constitutional: Denies: fever, chills, weakness Eyes: Reports: eye pain. Denies: vision change ENT: Denies: ear pain Respiratory: Denies: cough, dyspnea Cardiovascular: Denies: chest pain, palpitations Gastrointestinal: Reports: nausea. Denies: abdominal pain, vomiting Genitourinary: Denies: dysuria Musculoskeletal: Denies: back pain Skin: Denies: rash Neurological: Reports: headache, vertigo. Denies: weakness, numbness Past Medical History Past Medical History: COPD, Pulmonary Embolus (PE) Additional Past Medical History / Comment(s): headaches History of Any Multi-Drug Resistant Organisms: None Reported Past Surgical History: Hysterectomy, Orthopedic Surgery Additional Past Surgical History / Comment(s): pilinidal cyst, bilateral feet, laproscopic knee procedure, pelvic sling Past Anesthesia/Blood Transfusion Reactions: No Reported Reaction Past Psychological History: Anxiety, Depression Smoking Status: Never smoker Past Alcohol Use History: None Reported Past Drug Use History: None Reported - Past Family History Mother Family Medical History: Diabetes Mellitus, Deep Vein Thrombosis (DVT), Hypertension, Pulmonary Embolus Father History Unknown: Yes Family Medical History: Eye Disorder, Hypertension General Exam Limitations: no limitations General appearance: alert, in no apparent distress Head exam: Present: atraumatic, normocephalic Eye exam: Present: normal appearance, PERRL, EOMI. Absent: scleral icterus, conjunctival injection, nystagmus ENT exam: Present: normal oropharynx Neck exam: Present: normal inspection Respiratory exam: Present: normal lung sounds bilaterally. Absent: respiratory distress, wheezes, rales, rhonchi, stridor Cardiovascular Exam: Present: regular rate, normal rhythm, normal heart sounds. Absent: systolic murmur, diastolic murmur, rubs, gallop GI/Abdominal exam: Present: soft. Absent: distended, tenderness, guarding, rebound, rigid, mass Extremities exam: Present: normal inspection, normal capillary refill. Absent: pedal edema, calf tenderness Back exam: Present: normal inspection. Absent: CVA tenderness (R), CVA tenderness (L) Neurological exam: Present: alert, oriented X3, CN II-XII intact. Absent: motor sensory deficit Skin exam: Present: warm, dry, intact, normal color. Absent: rash Course Vital Signs 10/20/23 22:30 Temperature 97.8 F Pulse Rate 70 Respiratory 18 Rate Blood Pressure 136/89 O2 Sat by Pulse 99 Oximetry EKG Findings - EKG Results: EKG: interpreted by ERMD, sinus rhythm (Rate 62 bpm), normal axis - Blocks, [place], Hypertrophy, ST Abn: QRS axis and voltage: low voltage (<0.5 MV total QRS and <1.0 MV in each precordial lead) Medical Decision Making - Medical Decision Making The patient had chest x-ray that I interpreted as negative for acute infiltrate, congestive heart failure, pneumothorax The patient had computed tomography scan of the brain and I interpreted as negative for bony injury or acute intracranial hemorrhage. Was pt. sent in by a medical professional or institution (, PA, SMALLTALK DEVELOPER, urgent care, hospital, or group home...) When possible be specific @ -[No] Did you speak to anyone other than the patient for history (EMS, parent, family, police, friend...)? What history was obtained from this source @ -[No] Did you review nursing and triage notes (agree or disagree)? Why? @ -[I reviewed and agree with nursing and triage notes] Were old charts reviewed (outside hosp., previous admission, EMS record, old EKG, old radiological studies, urgent care reports/EKG's, group home records)? Report findings @ -[No old charts were reviewed] Differential Diagnosis (chest pain, altered mental status, abdominal pain women, abdominal pain men, vaginal bleeding, weakness, fever, dyspnea, syncope, headache, dizziness, GI bleed, back pain, seizure, CVA, palpatations, mental health, musculoskeletal)? @ -[Differential Headache: Migraine, tension, cluster, carbon monoxide, central venous thrombosis, pension karma temporal arteritis, acute closure glaucoma, intercranial hemorrhage, mastoiditis, sinusitis, head injury, this is not meant to be an all-inclusive list. EKG interpreted by me (3pts min.). @ -[As above] X-rays interpreted by me (1pt min.). @ -[I interpreted as above CT interpreted by me (1pt min.). @ -[I interpreted as above U/S interpreted by me (1pt. min.). @ -[None done] What testing was considered but not performed or refused? (CT, X-rays, U/S, labs)? Why? @ -[None] What meds were considered but not given or refused? Why? @ -[None] Did you discuss the management of the patient with other professionals (professionals i.e. , PA, SMALLTALK DEVELOPER, lab, RT, psych nurse, director social welfare, senior user experience architect, teacher, account officer, case specialist)? Give summary @ -[No] Was smoking cessation discussed for >3mins.? @ -[No] Was critical care preformed (if so, how long)? @ -[No] Were there social determinants of health that impacted care today? How? (Homel essness, low income, unemployed, alcoholism, drug addiction, transportation, low edu. Level, literacy, decrease access to med. care, [facility], rehab)? @ -[No] Was there de-escalation of care discussed even if they declined (Discuss DNR or withdrawal of care, Hospice)? DNR status @ -[No] What co-morbidities impacted this encounter? (DM, HTN, Smoking, COPD, CAD, Cancer, CVA, ARF, Chemo, Hep., AIDS, mental health diagnosis, sleep apnea, morbid obesity)? @ -[None] Was patient admitted / discharged? Hospital course, mention meds given and route, prescriptions, significant lab abnormalities, going to OR and other pertinent info. @ -[This patient is 48-year-old woman presenting with headache that has very different character than what she usually experiences. For that reason the patient had computed tomography scan, that is unremarkable. The remainder of workup also within normal limits. She is feeling better with treatment here. We discussed appropriate further care and follow-up, with neurology, as well as return parameters. Undiagnosed new problem with uncertain prognosis? @ -[No] Drug Therapy requiring intensive monitoring for toxicity (Heparin, Nitro, Insulin, Cardizem)? @ -[No] Were any procedures done? @ -[No] Diagnosis/symptom? @ -[Acute headache Acute, or Chronic, or Acute on Chronic? @ -[Acute Uncomplicated (without systemic symptoms) or Complicated (systemic symptoms)? @ -[Uncomplicated Side effects of treatment? @ -[No] Exacerbation, Progression, or Severe Exacerbation? @ -[No] Poses a threat to life or bodily function? How? (Chest pain, USA, MA, pneumonia, PE, COPD, DKA, ARF, appy, cholecystitis, CVA, Diverticulitis, Homicidal, Suicidal, threat to staff... and all critical care pts) @ -[No] - Lab Data Result diagrams: 10/20/23 22:49 10/20/23 22:49 Lab Results 10/20/23 10/20/23 10/20/23 Range/Units 22:49 22:49 22:49 WBC 6.4 (3.8-10.6) k/uL RBC 4.49 (3.80-5.40) m/uL Hgb 13.2 (11.4-16.0) gm/dL Hct 41.0 (34.0-46.0) % MCV 91.4 (80.0-100.0) fL MCH 29.4 (25.0-35.0) pg MCHC 32.2 (31.0-37.0) g/dL RDW 14.0 (11.5-15.5) % Plt Count 144 L (150-450) k/uL MPV 7.8 Neutrophils % 63 % Lymphocytes % 24 % Monocytes % 6 % Eosinophils % 4 % Basophils % 1 % Neutrophils # 4.1 (1.3-7.7) k/uL Lymphocytes # 1.6 (1.0-4.8) k/uL Monocytes # 0.4 (0-1.0) k/uL Eosinophils # 0.2 (0-0.7) k/uL Basophils # 0.0 (0-0.2) k/uL PT 10.7 (10.0-12.5) sec INR 1.0 (<1.2) APTT 26.6 (22.0-30.0) sec Sodium 139 (137-145) mmol/L Potassium 3.5 (3.5-5.1) mmol/L Chloride 106 (98-107) mmol/L Carbon Dioxide 24 (22-30) mmol/L Anion Gap 9 mmol/L BUN 18 H (7-17) mg/dL Creatinine 1.20 H (0.52-1.04) mg/dL Est GFR (CKD-EPI)AfAm 61 (>60 ml/min/1.73 sqM) Est GFR (CKD-EPI)NonAf 53 (>60 ml/min/1.73 sqM) Glucose 102 H (74-99) mg/dL Calcium 8.6 (8.4-10.2) mg/dL Total Bilirubin 0.4 (0.2-1.3) mg/dL AST 22 (14-36) U/L ALT 20 (4-34) U/L Alkaline Phosphatase 103 (38-126) U/L Creatine Kinase 33 (30-135) U/L Troponin I (0.000-0.034) ng/mL Total Protein 6.7 (6.3-8.2) g/dL Albumin 3.9 (3.5-5.0) g/dL 10/20/23 Range/Units 22:49 WBC (3.8-10.6) k/uL RBC (3.80-5.40) m/uL Hgb (11.4-16.0) gm/dL Hct (34.0-46.0) % MCV (80.0-100.0) fL MCH (25.0-35.0) pg MCHC (31.0-37.0) g/dL RDW (11.5-15.5) % Plt Count (150-450) k/uL MPV Neutrophils % % Lymphocytes % % Monocytes % % Eosinophils % % Basophils % % Neutrophils # (1.3-7.7) k/uL Lymphocytes # (1.0-4.8) k/uL Monocytes # (0-1.0) k/uL Eosinophils # (0-0.7) k/uL Basophils # (0-0.2) k/uL PT (10.0-12.5) sec INR (<1.2) APTT (22.0-30.0) sec Sodium (137-145) mmol/L Potassium (3.5-5.1) mmol/L Chloride (98-107) mmol/L Carbon Dioxide (22-30) mmol/L Anion Gap mmol/L BUN (7-17) mg/dL Creatinine (0.52-1.04) mg/dL Est GFR (CKD-EPI)AfAm (>60 ml/min/1.73 sqM) Est GFR (CKD-EPI)NonAf (>60 ml/min/1.73 sqM) Glucose (74-99) mg/dL Calcium (8.4-10.2) mg/dL Total Bilirubin (0.2-1.3) mg/dL AST (14-36) U/L ALT (4-34) U/L Alkaline Phosphatase (38-126) U/L Creatine Kinase (30-135) U/L Troponin I <0.012 (0.000-0.034) ng/mL Total Protein (6.3-8.2) g/dL Albumin (3.5-5.0) g/dL Disposition Clinical Impression: Headache Disposition: HOME SELF-CARE Condition: Good Prescriptions: Metoclopramide [Reglan] 10 mg PO Q6H PRN #10 tab PRN Reason: Headache Is patient prescribed a controlled substance at d/c from ED?: No Referrals: Carmelita Olvera MD [Primary Care Provider] - 1-2 days Yasemin Manning MD [REFERRING] - 1-2 days
[2023-10-21 00:11] LABS: Partial Thromboplastin Time 26.6 sec (22.0-30.0); Prothrombin Time 10.7 sec (10.0-12.5)
--- NOTE | 2023-10-21 00:23 | CT ---
EXAM: CT Head Without Intravenous Contrast CLINICAL HISTORY: ITS.REASON CT Reason: new headache TECHNIQUE: Axial computed tomography images of the head/brain without intravenous contrast. CTDI is 49.1 mGy and DLP is 1163 mGy-cm. This CT exam was performed using one or more of the following dose reduction techniques: automated exposure control, adjustment of the mA and/or kV according to patient size, and/or use of iterative reconstruction technique. COMPARISON: No relevant prior studies available. FINDINGS: No acute intracranial hemorrhage. No midline shift or mass effect. The territorial keenan-white matter differentiation is maintained throughout. Age-related cerebral volume loss. Periventricular and subcortical white matter hypoattenuation, consistent with chronic microangiopathy. The visualized orbits appear grossly unremarkable. The calvarium is intact. The visualized paranasal sinuses and mastoid air cells are grossly clear. IMPRESSION: No acute intracranial hemorrhage, midline shift, or mass effect.
--- NOTE | 2023-10-21 00:29 | XR ---
EXAM: XR Chest, 2 Views CLINICAL HISTORY: ITS.REASON XR Reason: altered mental status TECHNIQUE: Frontal and lateral views of the chest. COMPARISON: No relevant prior studies available. FINDINGS: Lungs: Unremarkable. No consolidation. Pleural space: Unremarkable. No pneumothorax. Heart: Unremarkable. No cardiomegaly. Mediastinum: Unremarkable. Normal mediastinal contour. Bones/joints: Unremarkable. No acute fracture. IMPRESSION: Normal chest x-rays.
== END 2023-10-21 00:55 | disposition home or self-care (01) ==
LOC: EC 22:17
DX: R51.9 Headache, unspecified (principal); I25.2 Old myocardial infarction; J44.9 Chronic obstructive pulmonary disease, unspecified; F41.9 Anxiety disorder, unspecified; F32.A Depression, unspecified; Z79.899 Other long term (current) drug therapy; Z79.82 Long term (current) use of aspirin; Z79.01 Long term (current) use of anticoagulants; Z79.51 Long term (current) use of inhaled steroids; Z88.5 Allergy status to narcotic agent; Z88.8 Allergy status to other drugs, medicaments and biological substances; Z86.711 Personal history of pulmonary embolism
CPT/HCPCS: 36415; 93005; 80053; 82550; 84484; 85025; 85610; 85730; 71046; 70450; 99284; 96374; 96375; 96361; J1200; J2765

== ENCOUNTER → 2024-02-20 | Outpatient (CLI) | payer OTHER ==
[~2024-02-20] MED LIST: REGADENOSON 0.4 MG/5 ML SYRINGE IV PRN
--- NOTE | 2024-02-20 14:11 | NM ---
EXAMINATION TYPE: NM stress lexiscan cardiolite DATE OF EXAM: 02/20/2024 COMPARISON: NONE CLINICAL INDICATION: Female, 48 years old with history of R07.9 CHEST PAIN, UNSPECIFIED; TECHNIQUE: After the intravenous administration of 9.59 mCi Tc 99m Sestamibi - Cardiolite resting SP ECT images acquired 45 minutes post injection. The patient received 0.4mg Lexiscan, 25.4 mCi Tc 99m Sestamibi - Stress images obtained [address] injection FINDINGS: Review of stress and rest SPECT images demonstrates no distinct perfusion abnormality. Gated analysis shows normal wall motion with an estimated left ventricular ejection fraction of 53 %. IMPRESSION: No scintigraphic evidence for reversible ischemia.
--- NOTE | 2024-02-20 19:27 | CA ---
Lexiscan Nuclear Stress Test Report Name: Akilah Rubio Exam Date: 02/20/2024 09:59 Exam Location: [facility] Ht (in): 61 Wt (lb): 255 BSA: 2.09 Ordering Phys: Justin Pantoja MD Referring Phys: Justin Pantoja MD Technologist: HERI,, Age: 48 Gender: F : 1975 Procedure CPT: Indications: R07.9 CHEST PAIN, UNSPECIFIED ICD-10 Codes: Patient History: Chest pain, RUPA and Palpitations Medications: Meds past 24 hrs: Pretest Chest Pain: STRESS TEST Lexiscan Protocol Exercise Duration (min:sec): 01:[address] Depressions (mm): Angina Score: [place] Score: Resting HR (bpm): 65 Peak HR (bpm): 102 Resting BP (mmHg): 123 / 90 Peak BP (mmHg): 128 / 76 MPHR: 170 Target HR: 145 % MPHR: 60 METS: 1.0 Total Dose: Peak Dose: Atropine: Double Product: 00217 BP Response: Stress Termination: INFUSION COMPLETE Stress Symptoms: NO SYMPTOMS Stress Summary: ECG ANALYSIS Resting ECG: Stress ECG: CONCLUSIONS Nondiagnostic stress testing Dr. Issa Reynoso MD (Electronically Signed) Final Date: 20 Feb 2024 19:26
== END | disposition home or self-care (01) ==
LOC: RADNMMAIN 08:02
PROVIDERS: ATTEND Internal Medicine Clinical Cardiac Electrophysiology
DX: R07.9 Chest pain, unspecified (principal); R00.2 Palpitations
CPT/HCPCS: 93017; 78452; A9500; J2785

== ENCOUNTER → 2024-08-11 | Outpatient (CLI) | payer OTHER ==
--- NOTE | 2024-08-11 16:17 | MR ---
EXAMINATION TYPE: MR lumbar spine wo con DATE OF EXAM: 08/11/2024 COMPARISON: 02/11/2023 HISTORY: 49 year-old female M54.16 low back pain, numbness in front of right thigh. [facility] TECHNIQUE: Multiplanar, multisequence images of the lumbar spine were acquired without IV contrast. FINDINGS: Vertebral body heights are preserved and alignment is maintained. Conus medullaris is normal. A few fatty matrix hemangiomas, for example, within the T11 and L1 vertebral bodies. Minimal early intervertebral disc desiccation scattered throughout. Intervertebral disc heights are maintained. No focal disc herniation or spinal canal stenosis. There is [id number] facet arthropathy in the lower lumbar spine. Changes does not contribute any significant neuroforaminal stenosis on either side. IMPRESSION: 1. Mild to moderate facet arthropathy lower lumbar spine. 2. Minimal early intervertebral disc desiccation scattered throughout. 3. No focal disc herniation or significant spinal canal stenosis. 4. No significant neuroforaminal stenosis. [facility], , 08/11/2024 4:14 PM
== END | disposition home or self-care (01) ==
LOC: RADMRIMAIN 14:02
PROVIDERS: ATTEND Family Medicine
CPT/HCPCS: 72148

== ENCOUNTER 2024-09-06 11:15 | Emergency (ER) | payer OTHER ==
--- NOTE | 2024-09-06 11:57 | ED ---
Abdominal Pain HPI - General Chief Complaint: Abdominal Pain Stated Complaint: R sided abd pain Time Seen by Provider: 09/06/24 11:54 Source: patient, RN notes reviewed Mode of arrival: ambulatory Limitations: no limitations - History of Present Illness Initial Comments: 49-year-old female presenting to the ER with chief complaint of right flank pain x 1 week. Describes a sharp pain that radiates to the right side that is worsening in severity. Admits associated nausea, vomiting. Denies dysuria, urinary frequency, hematuria. Denies constipation, diarrhea, fevers. Last bowel movement was yesterday and was normal. Denies history of abdominal surgeries. States she takes a blood thinner for history of PEs/DVTs. - Related Data Home Medications Medication Instructions Recorded Confirmed DULoxetine HCL [Cymbalta] 60 mg PO HS 11/02/16 01/18/22 Topiramate [Topamax] 100 mg PO DAILY 11/02/16 01/18/22 tiZANidine HCL [Zanaflex] 8 mg PO HS 11/02/16 01/18/22 Pantoprazole Sodium [Protonix] 40 mg PO DAILY 01/15/18 01/18/22 busPIRone HCl [Buspar] 10 mg PO BID 06/20/18 01/18/22 Montelukast [Singulair] 10 mg PO HS 01/08/19 01/18/22 Topiramate [Topamax] 200 mg PO HS 01/08/19 01/18/22 ARIPiprazole [Abilify] 5 mg PO DAILY 01/21/19 01/18/22 Albuterol Nebulized [Ventolin 2.5 mg INHALATION RT-Q6H PRN 12/27/21 01/18/22 Nebulized] Apixaban [Eliquis] 5 mg PO BID 12/27/21 01/18/22 Aspirin EC [Ecotrin Low Dose] 81 mg PO HS 12/27/21 01/18/22 Fluticasone Propion/Salmeterol 2 puff INHALATION RT-BID 12/27/21 01/18/22 [Advair 250-50 Diskus] Folic Acid 1 mg PO DAILY 12/27/21 01/18/22 Rizatriptan Odt [Maxalt LOG SORTER] 10 mg PO DAILY PRN 12/27/21 01/18/22 oxyBUTYnin chloride [Ditropan XL] 10 mg PO HS 12/27/21 01/18/22 traZODone HCL 50 mg PO HS 12/27/21 01/18/22 DULoxetine HCL [Cymbalta] 30 mg PO DAILY 01/18/22 01/18/22 Previous Rx's Medication Instructions Recorded Metoclopramide [Reglan] 10 mg PO Q6H PRN #10 tab 10/21/23 Allergies Allergy/AdvReac Type Severity Reaction Status Date / Time codeine AdvReac passes out Verified 09/06/24 11:27 warfarin AdvReac Unknown Verified 09/06/24 11:27 Hand Tank Washer Scent AdvReac asthma Uncoded 09/06/24 11:27 attack Review of Systems ROS Statement: Those systems with pertinent positive or pertinent negative responses have been documented in the HPI. ROS Other: All systems not noted in ROS Statement are negative. Past Medical History Past Medical History: COPD, Pulmonary Embolus (PE) Additional Past Medical History / Comment(s): headaches History of Any Multi-Drug Resistant Organisms: None Reported Past Surgical History: Hysterectomy, Orthopedic Surgery Additional Past Surgical History / Comment(s): pilinidal cyst, bilateral feet, laproscopic knee procedure, pelvic sling Past Anesthesia/Blood Transfusion Reactions: No Reported Reaction Past Psychological History: Anxiety, Depression Smoking Status: Never smoker Past Alcohol Use History: None Reported Past Drug Use History: None Reported - Past Family History Mother Family Medical History: Diabetes Mellitus, Deep Vein Thrombosis (DVT), Hypertension, Pulmonary Embolus Father History Unknown: Yes Family Medical History: Eye Disorder, Hypertension General Exam Limitations: no limitations General appearance: alert, in no apparent distress Head exam: Present: atraumatic, normocephalic, normal inspection Eye exam: Present: normal appearance, PERRL, EOMI. Absent: scleral icterus, conjunctival injection, periorbital swelling Respiratory exam: Present: normal lung sounds bilaterally. Absent: respiratory distress, wheezes, rales, rhonchi, stridor Cardiovascular Exam: Present: regular rate, normal rhythm, normal heart sounds. Absent: systolic murmur, diastolic murmur, rubs, gallop, clicks GI/Abdominal exam: Present: soft, normal bowel sounds. Absent: distended, tenderness, guarding, rebound, rigid Back exam: Present: normal inspection, full ROM, CVA tenderness (R). Absent: CVA tenderness (L), muscle spasm, rash noted Neurological exam: Present: alert, oriented X3 Psychiatric exam: Present: normal affect, normal mood Skin exam: Present: warm, dry, intact, normal color. Absent: rash Course Vital Signs 09/06/24 09/06/24 09/06/24 11:21 13:57 16:05 Temperature 97.5 F L 97.8 F 97.8 F Pulse Rate 72 80 69 Respiratory 18 18 14 Rate Blood Pressure 128/86 117/76 119/80 O2 Sat by Pulse 100 100 99 Oximetry Medical Decision Making - Medical Decision Making Was pt. sent in by a medical professional or institution (, PA, CHIMNEY SUPERVISOR BRICK, urgent care, hospital, or fdc...) When possible be specific @ -No Did you speak to anyone other than the patient for history (EMS, parent, family, police, friend...)? What history was obtained from this source @ -No Did you review nursing and triage notes (agree or disagree)? Why? @ -I reviewed and agree with nursing and triage notes Were old charts reviewed (outside hosp., previous admission, EMS record, old EKG, old radiological studies, urgent care reports/EKG's, fdc records)? Report findings @ -No old charts were reviewed Differential Diagnosis (chest pain, altered mental status, abdominal pain women, abdominal pain men, vaginal bleeding, weakness, fever, dyspnea, syncope, headache, dizziness, GI bleed, back pain, seizure, CVA, palpatations, mental health, musculoskeletal)? @ -Differential Abdominal Pain Women: Appendicitis, Cholecystitis, diverticulosis, ischemic bowel, pancreatitis, hepatitis, UTI, gastroenteritis, AAA, incarcerated hernia, bowel obstruction, constipation, inflammatory bowel, hepatitis, peptic ulcer disease, splenic infarction, perforated viscus, vulvitis, ovarian torsion, PID, kidney stone, placenta abruption, this is not meant to be an all-inclusive list EKG interpreted by me (3pts min.). @ -None X-rays interpreted by me (1pt min.). @ -None done CT interpreted by me (1pt min.). @ -CT abdomen pelvis reveals no acute process U/S interpreted by me (1pt. min.). @ -None done What testing was considered but not performed or refused? (CT, X-rays, U/S, labs)? Why? @ -None What meds were considered but not given or refused? Why? @ -None Did you discuss the management of the patient with other professionals (professionals i.e. , PA, CHIMNEY SUPERVISOR BRICK, lab, RT, psych nurse, health social work professor, analyst business analysis, teacher, special weapons and tactics officer, assistant case manager)? Give summary @ -No Was smoking cessation discussed for >3mins.? @ -No Was critical care preformed (if so, how long)? @ -No Were there social determinants of health that impacted care today? How? (Homelessness, low income, unemployed, alcoholism, drug addiction, transportation, low edu. Level, literacy, decrease access to med. care, custodial, rehab)? @ -No Was there de-escalation of care discussed even if they declined (Discuss DNR or withdrawal of care, Hospice)? DNR status @ -No What co-morbidities impacted this encounter? (DM, HTN, Smoking, COPD, CAD, Cancer, CVA, ARF, Chemo, Hep., AIDS, mental health diagnosis, sleep apnea, morbid obesity)? @ -None Was patient admitted / discharged? Hospital course, mention meds given and route, prescriptions, significant lab abnormalities, going to OR and other pe rtinent info. @ -Discharge. This is a 49-year-old female presenting with right flank pain x 1 week. Vital signs within acceptable limits. Abdomen is soft and nontender. Patient is provided with IV fluids, analgesics, and antiemetics. Lab work including CBC, CMP, lactic acid, lipase unremarkable. Urinalysis unremarkable. CT abdomen pelvis reveals no acute process. Discussed negative findings with patient. Patient reports improvement of symptoms upon reevaluation. I believe it is safe to discharge patient home with close follow-up with PCP. Patient is agreeable to this plan. Appropriate return precautions as well as follow-up care discussed. Case was discussed with my ED attending Dr. Oneill Undiagnosed new problem with uncertain prognosis? @ -No Drug Therapy requiring intensive monitoring for toxicity (Heparin, Nitro, Insulin, Cardizem)? @ -No Were any procedures done? @ -No Diagnosis/symptom? @ -Right flank pain Acute, or Chronic, or Acute on Chronic? @ -Acute Uncomplicated (without systemic symptoms) or Complicated (systemic symptoms)? @ -Uncomplicated Side effects of treatment? @ -No Exacerbation, Progression, or Severe Exacerbation? @ -No Poses a threat to life or bodily function? How? (Chest pain, [place], [place], pneumonia, PE, COPD, DKA, ARF, appy, cholecystitis, CVA, Diverticulitis, Homicidal, Suicidal, threat to staff... and all critical care pts) @ -No - Lab Data Result diagrams: 09/06/24 12:18 09/06/24 12:18 Lab Results 09/06/24 09/06/24 09/06/24 Range/Units 12:18 12:18 12:18 WBC 6.2 (3.8-10.6) k/uL RBC 4.47 (3.80-5.40) m/uL Hgb 13.8 (11.4-16.0) gm/dL Hct 43.0 (34.0-46.0) % MCV 96.1 (80.0-100.0) fL MCH 30.8 (25.0-35.0) pg MCHC 32.0 (31.0-37.0) g/dL RDW 13.9 (11.5-15.5) % Plt Count 147 L (150-450) k/uL MPV 7.5 Neutrophils % 82 % Lymphocytes % 13 % Monocytes % 3 % Eosinophils % 1 % Basophils % 0 % Neutrophils # 5.1 (1.3-7.7) k/uL Lymphocytes # 0.8 L (1.0-4.8) k/uL Monocytes # 0.2 (0-1.0) k/uL Eosinophils # 0.1 (0-0.7) k/uL Basophils # 0.0 (0-0.2) k/uL Sodium 139 (137-145) mmol/L Potassium 4.3 (3.5-5.1) mmol/L Chloride 110 H (98-107) mmol/L Carbon Dioxide 22 (22-30) mmol/L Anion Gap 7 mmol/L BUN 17 (7-17) mg/dL Creatinine 1.16 H (0.52-1.04) mg/dL Est GFR (CKD-EPI)AfAm 63 (>60 ml/min/1.73 sqM) Est GFR (CKD-EPI)NonAf 55 (>60 ml/min/1.73 sqM) Glucose 91 (74-99) mg/dL Plasma Lactic Acid Nicola 0.7 (0.7-2.0) mmol/L Calcium 8.9 (8.4-10.2) mg/dL Total Bilirubin 0.4 (0.2-1.3) mg/dL AST 13 L (14-36) U/L ALT 11 (4-34) U/L Alkaline Phosphatase 75 (38-126) U/L Total Protein 6.3 (6.3-8.2) g/dL Albumin 3.8 (3.5-5.0) g/dL Lipase 31 (23-300) U/L Urine Color Urine Appearance (Clear) Urine pH (5.0-8.0) Ur Specific [place] (1.001-1.035) Urine Protein (Negative) Urine Glucose (UA) (Negative) Urine Ketones (Negative) Urine Blood (Negative) Urine Nitrite (Negative) Urine Bilirubin (Negative) Urine Urobilinogen (<2.0) mg/dL Ur Leukocyte Esterase (Negative) Urine HCG, Qual (Not Detectd) 09/06/24 09/06/24 Range/Units 12:31 12:31 WBC (3.8-10.6) k/uL RBC (3.80-5.40) m/uL Hgb (11.4-16.0) gm/dL Hct (34.0-46.0) % MCV (80.0-100.0) fL MCH (25.0-35.0) pg MCHC (31.0-37.0) g/dL RDW (11.5-15.5) % Plt Count (150-450) k/uL MPV Neutrophils % % Lymphocytes % % Monocytes % % Eosinophils % % Basophils % % Neutrophils # (1.3-7.7) k/uL Lymphocytes # (1.0-4.8) k/uL Monocytes # (0-1.0) k/uL Eosinophils # (0-0.7) k/uL Basophils # (0-0.2) k/uL Sodium (137-145) mmol/L Potassium (3.5-5.1) mmol/L Chloride (98-107) mmol/L Carbon Dioxide (22-30) mmol/L Anion Gap mmol/L BUN (7-17) mg/dL Creatinine (0.52-1.04) mg/dL Est GFR (CKD-EPI)AfAm (>60 ml/min/1.73 sqM) Est GFR (CKD-EPI)NonAf (>60 ml/min/1.73 sqM) Glucose (74-99) mg/dL Plasma Lactic Acid Nicola (0.7-2.0) mmol/L Calcium (8.4-10.2) mg/dL Total Bilirubin (0.2-1.3) mg/dL AST (14-36) U/L ALT (4-34) U/L Alkaline Phosphatase (38-126) U/L Total Protein (6.3-8.2) g/dL Albumin (3.5-5.0) g/dL Lipase (23-300) U/L Urine Color Light Yellow Urine Appearance Clear (Clear) Urine pH 7.0 (5.0-8.0) Ur Specific [place] 1.016 (1.001-1.035) Urine Protein Negative (Negative) Urine Glucose (UA) Negative (Negative) Urine Ketones Negative (Negative) Urine Blood Negative (Negative) Urine Nitrite Negative (Negative) Urine Bilirubin Negative (Negative) Urine Urobilinogen <2.0 (<2.0) mg/dL Ur Leukocyte Esterase Negative (Negative) Urine HCG, Qual Not Detected (Not Detectd) Disposition Clinical Impression: Right flank pain Disposition: HOME SELF-CARE Condition: Stable Instructions (If sedation given, give patient instructions): Flank Pain (ED) Additional Instructions: Follow-up with PCP as discussed. Please return to the Emergency Department if symptoms worsen or any other concerns. Is patient prescribed a controlled substance at d/c from ED?: No Referrals: Carmelita Olvera MD [Primary Care Provider] - 1-2 days Time of Disposition: 15:56
[2024-09-06] MEDS: SODIUM CHLORIDE 0.9% 1,000 ML IV STA (12:21)
[2024-09-06 12:36] LABS: Basophils % (A) 0 %; Eosinophils # (A) 0.1 k/uL (0-0.7); Eosinophils % (A) 1 %; HGB 13.8 gm/dL (11.4-16.0); Lymphocytes # (A) 0.8 k/uL (1.0-4.8); Lymphocytes % (A) 13 %; MCH 30.8 pg (25.0-35.0); MCV 96.1 fL (80.0-100.0); Mean Platelet Volume 7.5; Monocytes # (A) 0.2 k/uL (0-1.0); Monocytes % (A) 3 %; Neutrophils # (A) 5.1 k/uL (1.3-7.7); Neutrophils % (A) 82 %; Platelet Count 147 k/uL (150-450); RBC 4.47 m/uL (3.80-5.40); RDW 13.9 % (11.5-15.5); WBC 6.2 k/uL (3.8-10.6)
[2024-09-06] MEDS: ONDANSETRON 4 MG/2 ML VIAL IVP STA (12:43)
[2024-09-06] MEDS: ACETAMINOPHEN TAB 500 MG TAB PO STA (12:43)
[2024-09-06 12:50] LABS: Appearance,Urine Clear (Clear); Bilirubin,Urine Negative (Negative); Blood,Urine Negative (Negative); Color,Urine Light Yellow; Glucose,Urine (UA) Negative (Negative); Ketones,Urine Negative (Negative); Leukocyte Esterase,Urine Negative (Negative); Nitrite,Urine Negative (Negative); Protein,Urine Negative (Negative); Specific Gravity,Urine 1.016 (1.001-1.035); Urobilinogen,Urine <2.0 mg/dL (<2.0)
[2024-09-06 12:55] LABS: ALT 11 U/L (4-34); AST 13 U/L (14-36); African American GFR (CKD) 63 (>60 ml/min/1.73 sqM); Albumin 3.8 g/dL (3.5-5.0); Alkaline Phosphatase 75 U/L (38-126); Anion Gap 7 mmol/L; Blood Urea Nitrogen 17 mg/dL (7-17); Calcium 8.9 mg/dL (8.4-10.2); Carbon Dioxide 22 mmol/L (22-30); Chloride 110 mmol/L (98-107); Glucose 91 mg/dL (74-99); Lipase 31 U/L (23-300); Non-African American GFR(CKD) 55 (>60 ml/min/1.73 sqM); Potassium 4.3 mmol/L (3.5-5.1); Sodium 139 mmol/L (137-145); Total Bilirubin 0.4 mg/dL (0.2-1.3); Total Protein 6.3 g/dL (6.3-8.2)
[2024-09-06 14:19] VITALS: TEMP 97.8
--- NOTE | 2024-09-06 15:22 | CT ---
EXAMINATION TYPE: CT abdomen pelvis wo con DATE OF EXAM: 09/06/2024 COMPARISON: 12/27/2021 CLINICAL INDICATION: Female, 49 years old with history of right flank pain, kidney stone suspected; P HH, Right flank pain, history of renal disease TECHNIQUE: CT scan of the abdomen and pelvis is performed without oral or IV contrast. CT DLP: 1314.[address] CTDI: mGy Automated exposure control for dose reduction was used. FINDINGS: Within the limitations of a non-contrast study, the following observations are made. The lungs are clear. Gallbladder is normal and there is no gallstone, wall thickening, pericholecystic fluid or distention . There is no biliary ductal dilatation. There is no organomegaly of the liver, pancreas, spleen or adrenal glands. There are no renal calcifications or hydronephrosis. The caliber of the abdominal aorta is normal and there is no retroperitoneal adenopathy or hemorrhage . The bowel loops are normal in caliber is no evidence of obstruction. No inflammatory changes are iden tified in the mesentery and there is no free intraperitoneal air or fluid. There is no pelvic mass, free fluid, abscess or adenopathy. The osseous structures and soft tissues are unremarkable. IMPRESSION: No significant abnormality seen. No interval change. [facility], , 09/06/2024 3:19 PM
[2024-09-06 16:09] VITALS: BP 119/80; PULSE 69; RESP 14
== END 2024-09-06 16:09 | disposition home or self-care (01) ==
LOC: EC 11:15
DX: R10.9 Unspecified abdominal pain (principal); Z88.5 Allergy status to narcotic agent; Z88.8 Allergy status to other drugs, medicaments and biological substances
CPT/HCPCS: 36415; 80053; 83605; 83690; 85025; 81003; 81025; 74176; 99284; 96374; 96361; J2405

== ENCOUNTER → 2024-10-26 | Outpatient (CLI) | payer OTHER ==
--- NOTE | 2024-10-26 11:57 | US ---
EXAMINATION TYPE: US kidneys/renal and bladder DATE OF EXAM: 10/26/2024 COMPARISON: CT 09/06/24 CLINICAL INDICATION: Female, 49 years old with history of N18.30 CKD STAGE 3; Right flank pain x 1 mo nths TECHNIQUE: Grayscale imaging of the bilateral kidneys and urinary bladder: FINDINGS: EXAM MEASUREMENTS: Right Kidney: 10.0 x 4.5 x 4.9 cm Left Kidney: 10.5 x 4.3 x 4.3 cm Post Void Residual Volume: NA mL Right Kidney: wnl, no evidence for hydronephrosis, mass or renal calculus. Left Kidney: wnl, no evidence for hydronephrosis, mass or renal calculus. Bladder: wnl Bilateral Jets seen: No Normal Post Void Residual: NA There is no evidence for hydronephrosis at this point in time. No nephrolithiasis is seen. No marilin s are identified. The urinary bladder is anechoic. IMPRESSION: No evidence for obstructive uropathy or calculus. [facility], , 10/26/2024 11:54 AM
== END | disposition home or self-care (01) ==
LOC: RADUSWWP 11:25
PROVIDERS: ATTEND Family Medicine
DX: N18.30 Chronic kidney disease, stage 3 unspecified (principal)
CPT/HCPCS: 76770

== ENCOUNTER 2024-12-10 08:15 | Day surgery (SDC) | payer OTHER ==
[~2024-12-10 08:15] MED LIST changes: +LACTATED RINGERS 1,000 ML IV SCH; -REGADENOSON 0.4 MG/5 ML SYRINGE IV PRN
[2024-12-10 08:56] VITALS: RESP 16; TEMP 98.2
[2024-12-10] MEDS ORDERED: methylPREDNISolone ACETATE 80 MG/ML 1 ML VIAL ONE (09:54)
[2024-12-10] MEDS ORDERED: IOPAMIDOL M200 10 ML VIAL ONE (09:54)
--- NOTE | 2024-12-10 10:07 | P.PCN ---
Date of Procedure: 12/10/24 Procedure(s) Performed: PREOPERATIVE DIAGNOSIS: 1-Lumbar radiculopathy . POSTOPERATIVE DIAGNOSIS: 1-lumbar radiculopathy. PROCEDURE 1. Transforaminal epidural steroid injection under fluoroscopic guidance at bilateral L4-5 level. (Fluoroscopy images stored on file in the radiology Department ) 2. Lumbar epidurogram . ANESTHESIA: Local with 1% lidocaine 3 ml. EBL: Minimal PROCEDURE INDICATION: The patient with low back pain and radiculopathy symptoms unresponsive to conservative treatment. PROCEDURE DESCRIPTION / TECHNIQUE: The patient was seen and identified in the preoperative area. Risks, benefits, complications, and alternatives were discussed with the patient. The patient agreed to proceed with the procedure and signed the consent, and vital signs were stable. Patient was taken to the OR and time out was completed. The patient was placed in the prone position on procedure table and a pillow was placed under the abdomen to reduce lumbar lordosis. The lumbosacral area was prepped and draped in the usual sterile fashion. Critical pause was taken. Vital signs were closely monitored during the procedure. Using oblique fluoroscopy, the chin of the ``Ad dog at right L4-5 level was identified, and the skin and deeper tissues just below was localized with 1% lidocaine. Subsequently, a 22-gauge 5-inch spinal needle was advanced under a tunneled view fluoroscopic guidance just underneath the chin of the ``Ad dog at the right L4-5 Under lateral fluoroscopy, the needle was then advanced to the posterior border of the interforaminal space. After negative aspiration of CSF and blood and with no paresthesias, 1 mL Isovue 200 contrast dye was injected excellent epidurogram and outlining of the nerve root Subsequently, 3 mL of block solution containing 40 mg Depo-Medrol and 2 mL of 0.9% normal saline PF was injected. Needle was removed and the same procedure was repeated at the left L4-5 level . At the end of the procedure, skin was cleansed, and bandages were applied. COMPLICATIONS:none DISPOSITION / PLANS: The patient was placed in a supine position and transferred to the recovery area in a stable condition for observation. There was no evidence of lower extremity motor or sensory deficit after the procedure. Patient was discharged from the recovery room after meeting discharge criteria. Home discharge instructions were given to the patient by the staff. The patient was reexamined prior to discharge. Patient held Eliquis for 72 hours
--- NOTE | 2024-12-10 10:16 | FL ---
EXAMINATION TYPE: FL guided pain mgmt statistic DATE OF EXAM: 12/10/2024 CLINICAL INDICATION: Female, 49 years old with history of PAIN; H, TECHNIQUE: Fluoroscopy. COMPARISON: None. FINDINGS: Fluoroscopic guidance was provided during pain relief procedure performed by Dr. Silver . A total of 15.4 seconds of fluoroscopic time was utilized during the procedure and two spot images are acquired. Images acquired shows needle localization at bilateral L3-L4 level. Total DAP: 0.79298 mGym2. IMPRESSION: As Above. [facility], , 12/10/2024 10:14 AM
[2024-12-10 10:33] VITALS: BP 108/62; PULSE 68
== END 2024-12-10 10:36 | disposition home or self-care (01) ==
LOC: ORPAIN 08:15
PROVIDERS: ATTEND Specialist
DX: M54.16 Radiculopathy, lumbar region (principal); Z88.5 Allergy status to narcotic agent; Z88.8 Allergy status to other drugs, medicaments and biological substances; Z79.01 Long term (current) use of anticoagulants; Z86.718 Personal history of other venous thrombosis and embolism; Z86.711 Personal history of pulmonary embolism
CPT/HCPCS: 64483; Q9966; J1010

== ENCOUNTER → 2024-12-29 | Outpatient (CLI) | payer OTHER ==
[2024-12-29 13:01] VITALS: BP 119/84; PULSE 79; RESP 16; TEMP 97.3
--- NOTE | 2024-12-29 15:47 | P.PAINPG ---
PQRS Measure Charge Sheet Comment: HISTORY OF PRESENT ILLNESS: A 49 yr old female w at side presents today w severe and chronic LBP > 1 yr secondary to radiculopathy, spondylosis and facet arthropathy without myelopathy for evaluation s/p BL TFESI L4-L5 #1. Pt states she experienced 60 % pain relief x 3 wks s/p procedure. Pt states pain level is provoked at 3-10 /10 in intensity, intermittent, localized in the lumbar spine, predominantly axial, sharp in character w occasional shooting pain towards the R thigh and knee. Pain is provoked by lifting. Pain is alleviated by PT x 6 wks which ended in Spring 2023, physician guided home exercises 4-5 times weekly since Spring 2023, medications, heat, repositioning and rest . Interventional procedures include BL TFESI L4-L5 x1 Medications include Tyl Arth REVIEW OF ORGAN SYSTEMS: CONSTITUTIONAL: No fevers or chills. No recent weight loss. NEUROLOGICAL: + numbness and tingling along the distal extremities. No seizure disorders or headaches. MUSCULOSKELETAL: + pain PSYCHIATRIC: Denies current depression or suicidal thoughts. Physical Examinations : Constitutional : Cooperative , not in acute distress . Neurologic : Cranial nerve II to XII intact. No focal neurological deficits. Psychiatric : alert & oriented x 3. Matching mood & appropriate affect. Judgment & insight intact. Musculoskeletal : Cervical Spine Motor strength in the deltoid and biceps: Normal right side. Normal Left side Motor strength biceps and the wrist extensors: Normal right side . Normal left side Motor strength in the triceps muscle: Normal right side. Normal left side Deep tendon reflexes: Normal at the biceps. Normal at Brachioradialis. Normal at triceps Vertebral body tenderness to deep palpation over Cervical facet loading test: positive bilaterally Spurling test: positive bilaterally Neck distraction test: positive bilaterally Velma sign: positive bilaterally Lumbar spine Motor strength lower extremities ,thigh and legs 5/5 Right side , 5/5 Left side Deep tendon reflexes : Normal Knee Jerk. Normal Ankle Jerk Vertebral body tenderness over L4 Villa Test positive R L3-L4/ L4-L5 Lumbar facet Loading Test: positive Right / positive Left Range of motion of the lumbar spine Flexion 30 degrees, extension 10 degrees Straight Leg Raise test: Left/ Right positive at degrees Carlos test: positive right / positive left. Severe tenderness over the Sacroiliac joint on the Right / Left sides Gaenslen test: positive bilaterally Seated flexion test: positive bilaterally. Sacral spine : Severe tenderness over the Sacroiliac joint: right side / left side Range of motion: Flexion of the lumbar spine <60 degrees Range of motion: Extension of the lumbar spine <20 degrees Gaenslen's Test positive Carlos test: positive right side / left side Thigh Thrust Test Sacral Thrust Test Imaging: MRI non contrast lumbar spine from 08/11/24 reviewed Assessment/ Plan : Lumbar radiculopathy Recommendation of R TFESI L3-L4/ L4-L5 #2. Would benefit from BL RFA L4-L5 also. Risks, benefits of procedure discussed and patient verbalized understanding. Admits to anti- coagulant use or medical history of diabetes. Protocol for discontinuation/ continuation of medications wendy procedure discussed. All questions answered. I have spent greater than 30 minutes on patient care today. Dr Silver was available by phone for the evaluation of this patient. The time was used to review the medical records including relevant urine studies and Prescription history (MAPs), review of the available imaging, evaluation and examination of the patient, coordination of care with the medical staff and if applicable referring physicians, as well as creation of the medical record PQRS Narrative: Smoking Status Never smoker Hx Alcohol Use (MH) No Home Medications: Ambulatory Orders Pantoprazole Sodium [Protonix] 40 mg PO DAILY 01/15/18 Montelukast [Singulair] 10 mg PO HS 01/08/19 Topiramate [Topamax] 200 mg PO BID 01/08/19 ARIPiprazole [Abilify] 5 mg PO DAILY 01/21/19 Albuterol Nebulized [Ventolin Nebulized] 2.5 mg INHALATION RT-Q6H PRN 12/27/21 Apixaban [Eliquis] 5 mg PO BID 12/27/21 oxyBUTYnin chloride [Ditropan XL] 10 mg PO HS 12/27/21 Baclofen 10 mg PO DAILY 12/07/24 Sertraline [Zoloft] 100 mg PO DAILY 12/07/24 buPROPion HCL [buPROPion HCL XL] 300 mg PO DAILY 12/07/24 modafiniL [Provigil] 100 mg PO QAM 12/07/24 diazePAM [Valium] 5 mg PO DAILY 1 Days #2 tab 12/29/24 Controlled Substance Measures - Controlled Substance Measures Is patient prescribed a controlled substance at discharge?: Yes When asked, does pt state using other controlled substances?: Yes If prescribed controlled substance>3 days was MAPS reviewed?: Prescribed <3 Days
== END ==
LOC: PNWHC3 11:56
PROVIDERS: ATTEND Specialist
DX: M54.16 Radiculopathy, lumbar region (principal); Z88.5 Allergy status to narcotic agent; Z88.8 Allergy status to other drugs, medicaments and biological substances
CPT/HCPCS: 99211

== ENCOUNTER 2025-01-13 08:28 | Day surgery (SDC) | payer OTHER ==
[2025-01-11 11:51] VITALS: BMI 41.5
[2025-01-13 09:29] VITALS: TEMP 97.6
[2025-01-13] MEDS ORDERED: DEXAMETHASONE SOD PHOSPHATE 10 MG/ML 1 ML VIAL ONE (10:22)
[2025-01-13] MEDS ORDERED: IOPAMIDOL M300 15ML VIAL ONE (10:22)
--- NOTE | 2025-01-13 10:54 | P.PCN ---
Description of Procedure: PREOPERATIVE DIAGNOSIS: 1-Lumbar radiculopathy . 2-lumbar degenerative disc disease. 3-lumbar spondylosis with lumbar facet arthropathy without myelopathy POSTOPERATIVE DIAGNOSIS: 1-lumbar radiculopathy. 2-lumbar degenerative disc disease. 3-lumbar spondylosis with facet arthropathy without myelopathy PROCEDURE 1. Transforaminal epidural steroid injection under fluoroscopic guidance at RIGHT L3-4, L4-5 level. (Fluoroscopy images stored on file in the radiology Department ) 2. Lumbar epidurogram . ANESTHESIA: Local with 1% lidocaine 5 ml. subcutaneously. Continuous pulse ox, EKG, blood pressure and verbal communication was maintained with the patient. EBL: Minimal PROCEDURE INDICATION: The patient with low back pain and radiculopathy symptoms unresponsive to conservative treatment. The patient was seen and identified in the preoperative area. Risks, benefits, complications, and alternatives were discussed with the patient. The patient agreed to proceed with the procedure and signed the consent. IV was started, and vital signs were stable. PROCEDURE DESCRIPTION / TECHNIQUE: After getting consent, patient was taken to the OR and time out was completed. The patient was placed in the prone position on procedure table and a pillow was placed under the abdomen to reduce lumbar lordosis. The lumbosacral area was prepped and draped in the usual sterile fashion. Critical pause was taken. After injecting 5 mL of plain 1% lidocaine subcutaneously, under oblique view of the fluoroscope, a 22-gauge spinal needle was introduced under the tunnel view of the fluoroscope on the RIGHT L3-4 side and the needle was advanced so that the tip of the needle was at the posterior inferior quadrant of the intervertebr al foramen at the lateral view of the fluoroscope and in the lateral third of the facet column in the AP view of the fluoroscope. Negative CSF, negative blood, negative paresthesia. After needle position confirmation by AP and cross table lateral view, 3 mL of Isovue-M 200 contrast was injected under continuous fluoroscope. No contrast was noted in the intrathecal or intravascular space. The epidurogram was noted. Again after repeated negative aspiration 2.5 mL solution was injected which consists 1 mL of normal saline mixed with 1.5 mL of 15 mg dexamethasone. Needle was removed . Same procedure was repeated at the RIGHT L4-5 , using contrast under continuous fluoroscopy and using same amount of dexamethasone. At the end of the procedure, skin was cleansed, and bandages were applied. DISPOSITION / PLANS: No complication. The patient tolerated the procedure well. The patient was placed in a supine position and transferred to the recovery area in a stable condition for observation. There was no evidence of lower extremity motor or sensory deficit after the procedure. Patient was discharged from the recovery room after meeting discharge criteria. Home discharge instructions were given to the patient by the staff. The patient was reexamined prior to discharge.
--- NOTE | 2025-01-13 11:09 | FL ---
EXAMINATION TYPE: FL guided pain mgmt statistic DATE OF EXAM: 01/13/2025 FLUOROSCOPY DAP - .[id number] FLUORO TIME - 1MIN AND 4 SECONDS 3 images are provided. Right-sided lumbar facet blocks. [facility], , 01/13/2025 11:07 AM
[2025-01-13 11:20] VITALS: BP 103/71; PULSE 75; RESP 18
== END 2025-01-13 11:20 | disposition home or self-care (01) ==
LOC: ORPAIN 08:28
PROVIDERS: ATTEND Pain Medicine Interventional Pain Medicine
DX: M51.16 Intervertebral disc disorders with radiculopathy, lumbar region (principal); M47.26 Other spondylosis with radiculopathy, lumbar region; Z88.5 Allergy status to narcotic agent; Z88.8 Allergy status to other drugs, medicaments and biological substances
CPT/HCPCS: 64483; 64484; J1100; Q9967

== ENCOUNTER → 2025-01-27 | Outpatient (CLI) | payer OTHER ==
[2025-01-27 13:01] VITALS: BP 134/93; PULSE 82; RESP 16
--- NOTE | 2025-01-27 15:25 | P.PAINPG ---
PQRS Measure Charge Sheet Comment: HISTORY OF PRESENT ILLNESS: A 49 yr old female w at side presents today w severe and chronic LBP > 1 yr secondary to radiculopathy, spondylosis and facet arthropathy without myelopathy for evaluation s/p R TFESI L3-L4/ L4-L5 #2. Pt states she experienced 50 % pain relief x 2 wks s/p procedure. Pt states pain level is provoked at 7 /10 in intensity, intermittent, localized in the lumbar spine, predominantly axial, sharp in character without shooting pain. Pain is provoked by bending. Pain is alleviated by PT x 6 wks which ended in Spring 2023, physician guided home exercises 4-5 times weekly since Spring 2023, medications, heat, repositioning and rest . Interventional procedures include BL TFESI L4-L5 x1, R TFESI L3-L4/ L4-L5 x1 Medications include Tyl Arth REVIEW OF ORGAN SYSTEMS: CONSTITUTIONAL: No fevers or chills. No recent weight loss. NEUROLOGICAL: + numbness and tingling along the distal extremities. No seizure disorders or headaches. MUSCULOSKELETAL: + pain PSYCHIATRIC: Denies current depression or suicidal thoughts. Physical Examinations : Constitutional : Cooperative , not in acute distress . Neurologic : Cranial nerve II to XII intact. No focal neurological deficits. Psychiatric : alert & oriented x 3. Matching mood & appropriate affect. Judgment & insight intact. Musculoskeletal : Cervical Spine Motor strength in the deltoid and biceps: Normal right side. Normal Left side Motor strength biceps and the wrist extensors: Normal right side . Normal left side Motor strength in the triceps muscle: Normal right side. Normal left side Deep tendon reflexes: Normal at the biceps. Normal at Brachioradialis. Normal at triceps Vertebral body tenderness to deep palpation over Cervical facet loading test: positive bilaterally Spurling test: positive bilaterally Neck distraction test: positive bilaterally Velma sign: positive bilaterally Lumbar spine Motor strength lower extremities ,thigh and legs 5/5 Right side , 5/5 Left side Deep tendon reflexes : Normal Knee Jerk. Normal Ankle Jerk Vertebral body tenderness over L4 Villa Test positive R L3-L4/ L4-L5 Lumbar facet Loading Test: positive Right / positive Left Range of motion of the lumbar spine Flexion 30 degrees, extension 10 degrees Straight Leg Raise test: Left/ Right positive at degrees Carlos test: positive right / positive left. Severe tenderness over the Sacroiliac joint on the Right / Left sides Gaenslen test: positive bilaterally Seated flexion test: positive bilaterally. Sacral spine : Severe tenderness over the Sacroiliac joint: right side / left side Range of motion: Flexion of the lumbar spine <60 degrees Range of motion: Extension of the l umbar spine <20 degrees Gaenslen's Test positive Carlos test: positive right side / left side Thigh Thrust Test Sacral Thrust Test Imaging: MRI non contrast lumbar spine from 08/11/24 reviewed Assessment/ Plan : Lumbar radiculopathy Recommendation of R TFESI L3-L4/ L4-L5 #3. Would benefit from BL RFA L4-L5 also. Risks, benefits of procedure discussed and patient verbalized understanding. Admits to anti- coagulant use or medical history of diabetes. Protocol for discontinuation/ continuation of medications wendy procedure discussed. All questions answered. I have spent greater than 30 minutes on patient care today. Dr Silver was available by phone for the evaluation of this patient. The time was used to review the medical records including relevant urine studies and Prescription history (MAPs), review of the available imaging, evaluation and examination of the patient, coordination of care with the medical staff and if applicable referring physicians, as well as creation of the medical record PQRS Narrative: Smoking Status Never smoker Hx Alcohol Use (MH) No Home Medications: Ambulatory Orders Pantoprazole Sodium [Protonix] 40 mg PO DAILY 01/15/18 Montelukast [Singulair] 10 mg PO HS 01/08/19 Topiramate [Topamax] 200 mg PO BID 01/08/19 ARIPiprazole [Abilify] 5 mg PO DAILY 01/21/19 Albuterol Nebulized [Ventolin Nebulized] 2.5 mg INHALATION RT-Q6H PRN 12/27/21 Apixaban [Eliquis] 5 mg PO BID 12/27/21 oxyBUTYnin chloride [Ditropan XL] 10 mg PO HS 12/27/21 Baclofen 10 mg PO DAILY 12/07/24 Sertraline [Zoloft] 100 mg PO DAILY 12/07/24 buPROPion HCL [buPROPion HCL XL] 300 mg PO DAILY 12/07/24 modafiniL [Provigil] 100 mg PO QAM 12/07/24 diazePAM [Valium] 5 mg PO DAILY 1 Days #2 tab 12/29/24 Controlled Substance Measures - Controlled Substance Measures Is patient prescribed a controlled substance at discharge?: Yes When asked, does pt state using other controlled substances?: No If prescribed controlled substance>3 days was MAPS reviewed?: Prescribed <3 Days
== END ==
LOC: PNWHC3 12:37
PROVIDERS: ATTEND Anesthesiology
DX: M47.26 Other spondylosis with radiculopathy, lumbar region (principal); Z91.048 Other nonmedicinal substance allergy status; Z88.5 Allergy status to narcotic agent; Z88.8 Allergy status to other drugs, medicaments and biological substances
CPT/HCPCS: 99211

== ENCOUNTER 2025-02-11 06:01 | Day surgery (SDC) | payer OTHER ==
[2025-02-09 11:13] VITALS: BMI 44.0
[2025-02-11 06:34] VITALS: RESP 16; TEMP 98.5
[2025-02-11] MEDS ORDERED: IOPAMIDOL M200 10 ML VIAL ONE (07:57)
[2025-02-11] MEDS ORDERED: methylPREDNISolone ACETATE 80 MG/ML 1 ML VIAL ONE (07:57)
--- NOTE | 2025-02-11 08:12 | P.PCN ---
Date of Procedure: 02/11/25 Procedure(s) Performed: PREOPERATIVE DIAGNOSIS: 1-Lumbar radiculopathy . POSTOPERATIVE DIAGNOSIS: 1-lumbar radiculopathy. PROCEDURE 1. Transforaminal epidural steroid injection under fluoroscopic guidance at bilateral L4-5 level. (Fluoroscopy images stored on file in the radiology Department ) 2. Lumbar epidurogram . ANESTHESIA: Local with 1% lidocaine 3 ml. EBL: Minimal PROCEDURE INDICATION: The patient with low back pain and radiculopathy symptoms unresponsive to conservative treatment. PROCEDURE DESCRIPTION / TECHNIQUE: The patient was seen and identified in the preoperative area. Risks, benefits, complications, and alternatives were discussed with the patient. The patient agreed to proceed with the procedure and signed the consent, and vital signs were stable. Patient was taken to the OR and time out was completed. The patient was placed in the prone position on procedure table and a pillow was placed under the abdomen to reduce lumbar lordosis. The lumbosacral area was prepped and draped in the usual sterile fashion. Critical pause was taken. Vital signs were closely monitored during the procedure. Using oblique fluoroscopy, the chin of the ``Ad dog at right L4-5 level was identified, and the skin and deeper tissues just below was localized with 1% lidocaine. Subsequently, a 22-gauge 5-inch spinal needle was advanced under a tunneled view fluoroscopic guidance just underneath the chin of the ``Ad dog at the right L4-5 Under lateral fluoroscopy, the needle was then advanced to the posterior border of the interforaminal space. After negative aspiration of CSF and blood and with no paresthesias, 1 mL Isovue 200 contrast dye was injected excellent epidurogram and outlining of the nerve root Subsequently, 3 mL of block solution containing 40 mg Depo-Medrol and 2 mL of 0.9% normal saline PF was injected. Needle was removed and the same procedure was repeated at the left L4-5 level . At the end of the procedure, skin was cleansed, and bandages were applied. COMPLICATIONS:none DISPOSITION / PLANS: The patient was placed in a supine position and transferred to the recovery area in a stable condition for observation. There was no evidence of lower extremity motor or sensory deficit after the procedure. Patient was discharged from the recovery room after meeting discharge criteria. Home discharge instructions were given to the patient by the staff. The patient was reexamined prior to discharge. Patient held Eliquis for 72 hours note= patient was scheduled to have right side transforaminal epidural at L3-4 and L4-5, in the preop holding area patient reported that she had pain on both side, even though her pain mostly on the right but she had significant pain also on the left side, and she had good pain relief, when we did bilateral transforaminal at L4-5 in the past, for this reason ,we changed the procedure ,from right side L3-4 ,L4-5, to bilateral transforaminal at L4-5 levels, we checked with the insurance counselor and it was okay to change the procedure.
--- NOTE | 2025-02-11 08:33 | FL ---
EXAMINATION TYPE: FL guided pain mgmt statistic DATE OF EXAM: 02/11/2025 CLINICAL HISTORY: M54.16 TRANSFORAMINAL EPIDURAL STEROID INJ TECHNIQUE: Fluoroscopy. COMPARISON: None. FINDINGS: transforaminal epidural steroid injection bilateral, fluoro time: 9.3 seconds, dap: 0.0554 7, Dr. Bueno IMPRESSION: As Above. [facility], , 02/11/2025 8:31 AM
[2025-02-11 08:37] VITALS: BP 117/78; PULSE 75
== END 2025-02-11 08:43 | disposition home or self-care (01) ==
LOC: ORPAIN 06:01
PROVIDERS: ATTEND Specialist
DX: M54.16 Radiculopathy, lumbar region (principal); Z88.5 Allergy status to narcotic agent
CPT/HCPCS: 64483; Q9966; J1010

== ENCOUNTER → 2025-03-30 | Outpatient (CLI) | payer OTHER ==
[2025-03-30 10:25] VITALS: BP 110/77; PULSE 77; RESP 16
--- NOTE | 2025-03-30 15:38 | P.PAINPG ---
Objective - Vital Signs Vital signs: Vital Signs Temp Pulse 77 03/30/25 10:20 Resp 16 03/30/25 10:20 BP 110/77 03/30/25 10:20 Pulse Ox 99 03/30/25 10:20 FiO2 Intake & Output 03/29/25 03/30/25 03/30/25 18:59 06:59 18:59 Weight 98.43 kg PQRS Measure Charge Sheet Mode of Arrival: Ambulatory Comment: HISTORY OF PRESENT ILLNESS: A 49 yr old female w at [facility] [place] presents today w severe and chronic LBP > 1 yr secondary to radiculopathy, spondylosis and facet arthropathy without myelopathy for evaluation s/p BL TFESI L4-L5 #2. Pt states she experienced 45 % pain relief x 2 wks s/p procedure. Pt states pain level is provoked at 10 /10 in intensity, intermittent, localized in the lumbar spine, predominantly axial, achy in character without shooting pain. Pain is provoked by standing for periods > 20 min Pain is alleviated by PT x 6 wks which ended in Spring 2023, physician guided home exercises 4-5 times weekly since Spring 2023, medications, heat, repositioning and rest . Interventional procedures include BL TFESI L4-L5 x2 (03/06), R TFESI L3-L4/ L4-L5 x1 Medications include Tyl Arth REVIEW OF ORGAN SYSTEMS: CONSTITUTIONAL: No fevers or chills. No recent weight loss. NEUROLOGICAL: + numbness and tingling along the distal extremities. No seizure disorders or headaches. MUSCULOSKELETAL: + pain PSYCHIATRIC: Denies current depression or suicidal thoughts. Physical Examinations : Constitutional : Cooperative , not in acute distress . Neurologic : Cranial nerve II to XII intact. No focal neurological deficits. Psychiatric : alert & oriented x 3. Matching mood & appropriate affect. Judgment & insight intact. Musculoskeletal : Cervical Spine Motor strength in the deltoid and biceps: Normal right side. Normal Left side Motor strength biceps and the wrist extensors: Normal right side . Normal left side Motor strength in the triceps muscle: Normal right side. Normal left side Deep tendon reflexes: Normal at the biceps. Normal at Brachioradialis. Normal at triceps Vertebral body tenderness to deep palpation over Cervical facet loading test: positive bilaterally Spurling test: positive bilaterally Neck distraction test: positive bilaterally Velma sign: positive bilaterally Lumbar spine Motor strength lower extremities ,thigh and legs 5/5 Right side , 5/5 Left side Deep tendon reflexes : Normal Knee Jerk. Normal Ankle Jerk Vertebral body tenderness over L4 Villa Test positive R L3-L4/ L4-L5 Lumbar facet Loading Test: positive Right / positive Left L3-L4, L4-L5 Range of motion of the lumbar spine Flexion 30 degrees, extension 10 degrees Straight Leg Raise test: Left/ Right positive at degrees Carlos test: positive right / positive left. Severe tenderness over the Sacroiliac joint on the Right / Left sides Gaenslen test: positive bilaterally Seated flexion test: positive bilaterally. Sacral spine : Severe tenderness over the Sacroiliac joint: right side / left side Range of motion: Flexion of the lumbar spine <60 degrees Range of motion: Extension of the lumbar spine <20 degrees Gaenslen's Test positive Carlos test: positive right side / left side Thigh Thrust Test Sacral Thrust Test Imaging: MRI non contrast lumbar spine from 08/11/24 reviewed Assessment/ Plan : Lumbar radiculopathy Recommendation of BL MBB L3-L4/ L4-L5 #1. Risks, benefits of procedure discussed and patient verbalized understanding. Admits to anti- coagulant use or medical history of diabetes. Protocol for discontinuation/ continuation of medications wendy procedure discussed. Minimal anesthesia including Fentanyl and Versed if clinically indicated. All questions answered. I have spent greater than 30 minutes on patient care today. Dr Silver was available by phone for the evaluation of this patient. The time was used to review the medical records including relevant urine studies and Prescription history (MAPs), review of the available imaging, evaluation and examination of the patient, coordination of care with the medical staff and if applicable referring physicians, as well as creation of the medical record - Pain Location Lower Back Pharmacological Interventions: Medication PQRS Narrative: Smoking Status Never smoker Blood Pressure 110/77 Pain Intensity [Lower Back] 10 Scale Used Numeric (1 - 10) Hx Alcohol Use (MH) No Home Medications: Ambulatory Orders Topiramate [Topamax] 200 mg PO BID 01/08/19 Albuterol Nebulized [Ventolin Nebulized] 2.5 mg INHALATION RT-QID PRN 12/27/21 Apixaban [Eliquis] 5 mg PO BID 12/27/21 Baclofen 10 mg PO HS 12/07/24 buPROPion HCL [buPROPion HCL XL] 300 mg PO DAILY 12/07/24 modafiniL [Provigil] 100 mg PO DAILY 12/07/24 ARIPiprazole [Abilify] 10 mg PO HS 03/08/25 Atogepant [Qulipta] 60 mg PO HS 03/08/25 Dextroamphetamine/Amphetamine [Adderall] 10 mg PO BID@0630,1300 03/08/25 Esomeprazole Magnesium [NexIUM] 40 mg PO DAILY 03/08/25 Rizatriptan Benzoate [Rizatriptan Benzoate ODT] 10 mg PO DAILY PRN 03/08/25 Rosuvastatin [Crestor] 10 mg PO DAILY 03/08/25 Semaglutide [Wegovy] 0.25 mg SQ MARADIAGA 03/08/25 Sertraline [Zoloft] 100 mg PO DAILY 03/08/25 Ubrogepant [Ubrelvy] 100 mg PO DAILY PRN 03/08/25 HYDROcodone/APAP 7.5-325MG [Bowen 7.5-325] 1 tab PO Q4H PRN 3 Days #18 tab 03/30/25 Controlled Substance Measures - Controlled Substance Measures Is patient prescribed a controlled substance at discharge?: Yes When asked, does pt state using other controlled substances?: No If prescribed controlled substance>3 days was MAPS reviewed?: Prescribed <3 Days
== END ==
LOC: PNWHC3 10:00
PROVIDERS: ATTEND Specialist
DX: M47.26 Other spondylosis with radiculopathy, lumbar region (principal); Z88.5 Allergy status to narcotic agent; Z88.8 Allergy status to other drugs, medicaments and biological substances; Z91.048 Other nonmedicinal substance allergy status
CPT/HCPCS: 99212

== ENCOUNTER 2025-04-26 08:31 | Day surgery (SDC) | payer OTHER ==
[2025-04-26] MEDS: LACTATED RINGERS 1,000 ML IV SCH (09:53)
[2025-04-26] MEDS: IV FLUID CONTINUATION 1,000 ML IV ONE ×2 (09:54→11:04)
[2025-04-26 09:57] VITALS: TEMP 97.6
[2025-04-26] MEDS ORDERED: ROPIVACAINE 5 MG/ML 30 ML VIAL ONE (10:46)
[2025-04-26] MEDS ORDERED: fentaNYL (PF) 50 MCG/ML 2 ML AMP ONE (10:46)
[2025-04-26] MEDS ORDERED: MIDAZOLAM 2 MG/2 ML VIAL ONE (10:46)
--- NOTE | 2025-04-26 11:01 | P.PCN ---
Date of Procedure: 04/26/25 Procedure(s) Performed: PREOPERATIVE DIAGNOSIS : 1- Lumbar spondylosis with Facet Arthropathy with out myelopathy . 2- Lumber degenerative disc disease POSTOPERATIVE DIAGNOSIS: 1- Lumbar spondylosis with Facet Arthropathy without myelopathy . 2- Lumber degenerative disc disease PROCEDURE: Diagnostic bilateral L2 , L3 , L4 medial branch block under fluoroscopy guidance(fluoroscopy images available in the radiology Department ) ( To target the facet joint between Bilateral L3-4 ,L4-5 )#1st ANESTHEIA: moderate sedation with intravenous Versed 2 mg and Fentanyl 100 mcg.(Sedation start time 10:46 ,end time 10:55 ) EBL: Minimal COMPLICATION: None PROCEDURE INDICATION: Chronic low back pain secondary to Facet arthropathy unresponsive to conservative treatment. PROCEDURE DESCRIPTION: the patient was seen and identified in the preop holding area , risks and benefits and possible complications of the procedure and alternative were discussed with the patient, and the patient agreed to proceed with the procedure and signed the consent and vital signs monitored during the procedure and fluoroscopy was used to maximize the benefit and accuracy of the needle placement, and sedation was given to decrease patient anxiety, patient was taken to the procedure room and placed in prone position vital signs monitored in the back prepped with chlorhexidine X3 then under strict sterile technique using a right oblique fluoroscopy ,the junction of the transverse process and the superior articulating process of the right L2 , L3 , L4 , vertebra which corresponding to the fluoroscopy image of the eye of the Ad dog on the block side for the medial branches and subsequently , after local infiltration of skin and subcu tissuies with Ropivacaine 0.5 % , one mL at each level ,then 22-gauge 5 inches long Quincke-type needles , 3 needle was used , each one of them placed at the junction of the base of the transverse process and the superior articular process at the appropriate level, and the needle was advanced until the periosteum contacted, needle placement confirmed with AP oblique and lateral view and after appropriate needle placement confirmed, and after negative aspiration for heme and CSF and there was no paresthesia 1-1/2 mL of Ropivacaine 0.5% , then half mL injected at each level after negative aspiration the needle subsequently removed and the same procedure repeated for the left side at left side at L2 , L3 , L4 levels. At the end of the procedure and the needles removed and a bandage applied after the skin was cleaned the cleaning solution patient taken to recovery room in stable condition and monitors in the recovery room for 20-30 minutes and discharged home in stable condition after discharge criteria met and patient will follow up with the pain clinic in 2-4 weeks
[2025-04-26 11:08] VITALS: RESP 16
--- NOTE | 2025-04-26 11:16 | FL ---
EXAMINATION TYPE: FL guided pain mgmt statistic DATE OF EXAM: 04/26/2025 11:01 AM COMPARISON: Pre Operative Images if available both CT/MRI or plain film CLINICAL INDICATION: Female, 49 years old with history of FACET BLOCK NATIVIDAD LUM; TECHNIQUE: FL guided pain mgmt statistic, multiple fluoroscopic images provided for procedure. DAP: 0.81097 mGym2 Gycm2 uGym2 cGycm2 or equivalent. FINDINGS: Fluoroscopic images during injection for pain management demonstrate multilevel degeneration changes throughout the spine. No evidence for fracture. No acute process identified. IMPRESSION: 1. No evidence for intraoperative complication. 2. Please see the operative/procedural note for further details. [facility], , 04/26/2025 11:14 AM
[2025-04-26 11:23] VITALS: BP 101/66; PULSE 71
== END 2025-04-26 11:42 | disposition home or self-care (01) ==
LOC: ORPAIN 08:31
PROVIDERS: ATTEND Specialist
DX: M47.816 Spondylosis without myelopathy or radiculopathy, lumbar region (principal); M51.360 Other intervertebral disc degeneration, lumbar region with discogenic back pain only; Z88.5 Allergy status to narcotic agent
CPT/HCPCS: 64493; 64494; J2250; J3010; J2795